=== PATIENT | male | born 1970 | race Caucasian/White ===

== ENCOUNTER → 2018-06-17 | Day surgery (SDC) | payer OTHER ==
[2018-06-14 11:47] LABS: BASOPHILS # (AUTO) 0.1 (0.0-0.1); BASOPHILS % 0.5 % (0.0-1.0); EOSINOPHILS # (AUTO) 0.3 (0.0-0.4); EOSINOPHILS % 3.4 % (0.0-6.0); HEMATOCRIT 44.7 % (38.2-49.6); HEMOGLOBIN 14.9 g/dL (14.0-18.0); LYMPHOCYTES # (AUTO) 2.9 (1.0-3.2); LYMPHOCYTES % 30.3 % (18.0-39.1); MEAN CORPUSCULAR HEMOGLOBIN 31.1 pg (28-32); MEAN CORPUSCULAR HGB CONC 33.3 g/dL (31-35); MEAN CORPUSCULAR VOLUME 93.3 fL (81-99); MONOCYTES # (AUTO) 0.9 (0.2-0.8); MONOCYTES % 9.4 % (4.4-11.3); NEUTROPHILS # (AUTO) 5.3 (2.1-6.9); PLATELET COUNT 290 x10e3/uL (140-360); RED BLOOD COUNT 4.79 x10e6/uL (4.3-5.7)
[2018-06-14 12:04] LABS: ANION GAP 14.2 mmol/L (8-16); BLOOD UREA NITROGEN 17 mg/dL (7-26); BUN/CREATININE RATIO 15 (6-25); CALCIUM 8.9 mg/dL (8.4-10.2); CARBON DIOXIDE 24 mmol/L (22-29); CHLORIDE 102 mmol/L (98-107); CREATININE, SERUM 1.17 mg/dL (0.72-1.25); EST GLOMERULAR FILTRATION RATE > 60 ML/MIN (60-); GLUCOSE 84 mg/dL (74-118); POTASSIUM 4.2 mmol/L (3.5-5.1); SODIUM 136 mmol/L (136-145)
--- NOTE | 2018-06-14 12:20 | Diagnostic Imaging Report ---
EXAM: CHEST 2 VIEWS, PA and lateral DATE: 06/14/2018 Time stamp on exam: 11:47 AM INDICATION: Preoperative COMPARISON: None FINDINGS: LINES/TUBES: None LUNGS: No consolidations or edema. PLEURA: No effusions or pneumothorax. HEART AND MEDIASTINUM: Normal size and contour. BONES AND SOFT TISSUES: Plate overlies the lower cervical spine. Old mid shaft fracture of the right clavicle. IMPRESSION: No acute thoracic abnormality. Signed by: Dr. Win Krishnan DO on 06/14/2018 12:17 PM
[~2018-06-17] MED LIST: ACETAMINOPHEN 1000 MG/100 ML IV ONE; ACYCLOVIR200 MG PO; BUPIVACAINE 0.25% 30ML SDV INJ ONE; CEFAZOLIN SOD 2 GM/D5W 50ML 50 ML IV ONE; CIPRO500 MG PO; CLONAZEPAM1 MG PO; DEXAMETHASONE SOD PHOS INJ 4 MG/ML VIAL ONE; FENTANYL CITRATE/PF 100MCG/2 ML INJ ONE; FLAGYL250 MG; FLUOXETINE HCL20 M1; HYDROCODON-ACE1 EA12 PO; KETOROLAC TROMETHAMINE 30 MG/ML VIAL ONE; KLONOPIN1 MG; LIDOCAINE HCL 2% JELLY 5 ML TUBE ONE; LIDOCAINE HCL 2% LOCAL INJ 5 ML SDV VIAL INJ ONE; METHYLPREDNISOLO4 M1 PO; MIDAZOLAM HCL 2 MG/2 ML VIAL ONE; NEOSTIGMINE 1 MG/ML 10ML VIAL ONE; OMEPRAZOLE40 MG PO; ONDANSETRON HCL INJ 2MG/ML 2ML 2 MG/ML VIAL ONE; PANTOPRAZOLE SO40 MG PO; PROMETHAZINE HC25 M1 PO; PROPOFOL IV EMULSION 10 MG/ML 20 ML VIAL ONE; SEVOFLURANE INHAL SOLN 250 ML PEN BTL ONE; TRAZODONE HCL50 MG PO; TYLENOL # 31 EA
--- OUTSIDE RECORDS SUMMARY | 2018-06-17 06:39 | XMS REPORT | Clinical Summary ---
Author Author [facility] Organization [facility] Address Unknown Phone Unavailable Care Team Providers Care Business Process Representative Name Role Phone PCP Unavailable Allergies Not on File Medications Not on file Active Problems Not on file Social History Date Tobacco Use Types Packs/Day Years Used Never Assessed Sex Assigned at Date Recorded Not on file Industry Job Start Date Occupation Not on file Not on file Not on file Travel End Travel History Travel Start No recent travel history available. Last Filed Vital Signs Not on file Plan of Treatment Health Maintenance Due Date Last Done Comments INFLUENZA VACCINE 12/08/2017 Results Not on fileafter 06/16/2017 Insurance Payer Benefit Subscriber ID Type Phone Address Plan / Group [facility] MEDICA - xxxxxxxxx [facility] Advance Directives Patient has advance care planning documents on file. For more information, amparo jackson contact: Frandy Baig [address] [place] [phone]
--- OUTSIDE RECORDS SUMMARY | 2018-06-17 06:43 | XMS REPORT | Continuity of Care Document ---
Author Author [facility] Interface Address Unknown Phone Unavailable Problems Problem Status Onset Date Classification Date Reported Comments Source Food in esophagus causing other injury, initial encounter 06/12/2017 09/14/2017 [facility] FOOD IMPACTION OF ESOPHAGUS Active 06/07/2017 [facility] FOOD STUCK IN THROAT Active 06/07/2017 [facility] Discharge Diagnosis: Folliculitis 07/19/2016 07/22/2016 [facility] SKIN IRRITATION Active 07/19/2016 [facility] Discharge Diagnosis: Insect bite of cheek 03/12/2016 03/15/2016 [facility] BUG BITE Active 03/11/2016 [facility] PAIN IN NECK Active 09/13/2015 [facility] PAIN IN LEFT ARM Active 09/03/2015 [facility] Discharge Diagnosis: Strain of thoracic region 08/22/2015 08/25/2015 [facility] BACK PAIN Active 08/22/2015 [facility] ABD/SIDE PAIN Active 05/25/2015 [facility] Discharge Diagnosis: Abdominal pain, acute 05/25/2015 05/28/2015 [facility] Discharge Diagnosis: Rash 05/02/2015 05/05/2015 [facility] Discharge Diagnosis: Chest pain at rest 05/02/2015 05/05/2015 [facility] RASH Active 05/01/2015 [facility] Discharge Diagnosis: Facial rash 03/19/2015 03/22/2015 [facility] INSECT BITES Active 03/19/2015 [facility] CHEST TIGHTNESS, SOB Active 02/25/2015 [facility] Discharge Diagnosis: Rash 01/19/2015 01/22/2015 [facility] 2 YR RASH Active 01/18/[address] [facility] Discharge Diagnosis: Contusion of finger 12/28/2014 12/31/2014 [facility] BROKEN FINGER Active 12/28/2014 [facility] Discharge Diagnosis: Allergic reaction caused by a drug 11/28/2014 12/01/2014 [facility] ALLERGIC REACTION Active 11/28/2014 [facility] Discharge Diagnosis: Otalgia of right ear 10/20/2014 10/23/2014 [facility] EAR PAIN Active 10/20/2014 [facility] VOMITING Active 06/20/2014 [facility] Discharge Diagnosis: Abdominal pain 02/23/2014 02/26/2014 [facility] Discharge Diagnosis: Vomiting in adult 02/23/2014 02/26/2014 [facility] BODY ACHES Active 02/23/2014 [facility] ABDOMINAL PAIN Active 02/22/2014 [facility] Discharge Diagnosis: Anxiety 01/10/2014 01/13/2014 [facility] PANIC ATTACK Active 01/10/2014 [facility] CHEST PAIN/PANIC ATTACK Active 01/10/2014 [facility] Discharge Diagnosis: Sunburn of first degree 09/27/2013 09/30/2013 [facility] Discharge Diagnosis: Abdominal pain, recurrent 09/27/2013 09/30/2013 [facility] FACIAL BURN Active 09/23/2013 [facility] Discharge Diagnosis: Abdominal Pain 08/01/2013 08/04/2013 [facility] RECTAL BLEEDING Active 08/01/2013 [facility] FLU SYMPTOMS Active 08/01/2013 [facility] Discharge Diagnosis: headache 07/22/2013 07/25/2013 [facility] Discharge Diagnosis: constipation 07/22/2013 07/25/2013 [facility] Discharge Diagnosis: vomiting 07/22/2013 07/25/2013 [facility] Discharge Diagnosis: abdominal pain - NOS 07/21/2013 07/24/2013 [facility] BODY ACHE/FEVER Active 07/20/2013 [facility] Discharge Diagnosis: Dehydration 07/20/2013 07/23/2013 [facility] ALLERGY Active 12/04/2012 [facility] LEG NUMBNESS Active 10/09/2012 [facility] ANXIETY Active 09/27/2012 [facility] ABD PAIN Active 02/14/2011 [facility] INTRACTABLE ABDOMINAL PAIN Active 02/14/2011 [facility] Abdominal pain Active Problem 12/06/2012 [facility] Chest pain Active Problem 12/06/2012 [facility] Hyperlipidemia Active Problem 12/06/2012 [facility] Hypertension Active Problem 12/06/2012 [facility] PUD - Peptic ulcer disease Active Problem 12/06/2012 [facility] Chronic back pain Resolved Problem 12/06/2012 [facility] Lesion<sup>1</sup> Resolved Problem 12/06/2012 1biopsy R nare. [facility] Anxiety Resolved Problem 12/06/2012 [facility] Abdominal pain Active Problem 09/14/2017 [facility], [place] Anxiety Resolved Problem 09/14/2017 [facility] [place] Chest pain Active Problem 09/14/2017 [facility] Chronic back pain Resolved Problem 09/14/2017 [facility] Hyperlipidemia Active Problem 09/14/2017 [facility] Hypertension Active Problem 09/14/2017 [facility] Lesion<sup>1</sup> Resolved Problem 03/15/2016 biopsy R nare. [facility] PUD - Peptic ulcer disease Active Problem 09/14/2017 [facility] Abdominal pain Active Problem 06/18/2015 [facility] Anxiety Resolved Problem 06/18/2015 [facility], [facility] [place] Chest pain Active Problem 06/18/2015 [facility], [facility] [place] Chronic back pain Resolved Problem 06/18/2015 [facility] Hyperlipidemia Active Problem 06/18/2015 [facility] Active Problem 06/18/2015 [facility] Lesion<sup>1</sup> Resolved Problem 06/18/2015 biopsy R nare. [facility] PUD - Peptic ulcer disease Active Problem 06/18/2015 [facility] [place] Duodenitis without bleeding 09/14/2017 [facility] Other gastritis without bleeding 09/14/2017 [facility] Hypo-osmolality and hyponatremia 09/14/2017 [facility] Hypovolemia 09/14/2017 [facility] Acute kidney failure, unspecified 09/14/2017 [facility] Hyperlipidemia, unspecified 09/14/2017 [facility] Essential hypertension 09/14/2017 [facility] Gastro-esophageal reflux disease without esophagitis 09/14/2017 [facility] Anxiety disorder, unspecified 09/14/2017 [facility] ABDMNAL PAIN UNSPCF SITE Active [facility] FOOD IN ESOPHAGUS CAUSING OTHER INJURY, Active [facility] Medications Medication Details Route Status Patient Instructions Ordering Provider Order Date Source Protonix 40 mg, 1 tab, Route: PO, Drug form: ECTAB, BID, Dosing Weight 124.045, kg, Start date: 06/08/17 17:00:00 POTATO SORTER, Duration: 30 day, Stop date: 07/08/17 9:00:00 CSTNotes: Tablet should not be chewed or crushed. (Same as: Protonix) Inactive 06/08/2017 [facility] Morphine 6 mg, 3 mL, Route: PO, Drug form: SOLN, Q4H, Dosing Weight 124.045, kg, PRN Pain Score 7-10, Start date: 06/08/17 14:45:00 POTATO SORTER, Duration: 30 day, Stop date: 07/08/17 14:44:00 CSTNotes: (Same as:MORPhine Sulfate) Inactive 06/08/2017 [facility] Pepcid 20 mg, 2 mL, Route: IV, Drug form: INJ, Q12H, Dosing Weight 122.727, kg, Start date: 06/08/17 9:00:00 POTATO SORTER, Duration: 30 day, Stop date: 07/07/17 21:00:00 POTATO SORTER, Notes: (Same as: Pepcid) Can be dilute in 5-10cc NS IVP: Slow IV push over at least 2 minutes. Inactive 06/08/2017 [facility] heparin 5,000 unit, 1 mL, Route: SUB-Q, Drug form: INJ, Q12H, Dosing Weight 122.727, kg, Start date: 06/08/17 9:00:00 POTATO SORTER, Stop date: 07/07/17 21:00:00 CSTNotes: porcine heparin Inactive 06/08/2017 [facility] Glucagon 1 mg, Route: INJ, ONCE, Dosing Weight 124.045, kg, Start date: 06/08/17 8:58:00 POTATO SORTER, Stop date: 06/08/17 8:58:00 POTATO SORTER Inactive 06/08/2017 [facility] normal saline 0.9% IV 1,000 mL 1,000 mL, Rate: 100 ml/hr, Infuse over: 10 hr, Route: IV, Dosing Weight 124.045 kg, Total Volume: 1,000, Start date: 06/08/17 7:08:00 POTATO SORTER, Duration: 30 day, Stop date: 07/08/17 7:07:00 POTATO SORTER, 2.59, m2 Inactive 06/08/2017 [facility] Klonopin PO, BID, 0 Refill(s) Active 06/08/2017 [facility] Trazodone PO, Bedtime, 0 Refill(s) Active 06/08/2017 [facility] normal saline 0.9% IV 1,000 mL 1,000 mL, Rate: 100 ml/hr, Infuse over: 10 hr, Route: IV, Dosing Weight 122.727 kg, Total Volume: 1,000, Priority: STAT, Start date: 06/08/17 0:14:00 POTATO SORTER, Duration: 1 doses or times, Stop date: 06/08/17 10:13:00 POTATO SORTER, 2.58, m2 Inactive 06/08/2017 [facility] Morphine 2 mg, 0.5 mL, Route: IVP, Drug form: SOLN, Q4H, Dosing Weight 122.727, kg, PRN Pain Score 7-10, Start date: 06/08/17 0:13:00 POTATO SORTER, Duration: 30 day, Stop date: 07/08/17 0:12:00 CSTNotes: (Same as:MORPhine Sulfate) Inactive 06/08/2017 [facility] Ondansetron 4 mg, 2 mL, Route: IVP, Drug form: INJ, Q6H, Dosing Weight 122.727, kg, PRN Nausea & Vomiting, Start date: 06/08/17 0:13:00 POTATO SORTER, Duration: 30 day, Stop date: 07/08/17 0:12:00 CSTNotes: (Same as: Zofran) MEDICATION WASTE Product Size: 4 mg Product Wasted: ___ mg Inactive 06/08/2017 [facility] Glucagon 1 mg, Route: IM, Drug form: PDR/INJ, ONCE, Dosing Weight 122.727, kg, Priority: STAT, Start date: 06/07/17 22:05:00 POTATO SORTER, Stop date: 06/07/17 22:05:00 POTATO SORTER Inactive 06/08/2017 [facility] clindamycin 300 mg oral capsule 300 mg=1 cap, PO, Q6H, X 7 day, # 28 cap, 0 Refill(s) Active 07/19/2016 [facility] Saline Flush 0.9% 10 mL, Route: IVP, Drug Form: INJ, Dosing Weight 115, kg, PRN, PRN Line Flush, Start date: 07/19/16 8:24:00 CDT, Duration: 30 day, Stop date: 08/18/16 8:23:00 CDTNotes: (Same as: BD Posiflush) Inactive 07/19/2016 [facility] Sulfamethoxazole 800 MG / Trimethoprim 160 MG Oral Tablet [Bactrim] 1 tab, PO, BID, X 10 day, # 20 tab, 0 Refill(s) Active 03/12/2016 [facility] Morphine 4 mg, Route: IM, Drug form: INJ, ONCE, Dosing Weight 120.455, kg, Priority: STAT, Start date: 09/13/15 14:17:00 CDT, Stop date: 09/13/15 14:17:00 CDT Inactive 09/13/2015 [facility] Valium 5 mg, Route: PO, ONCE, Dosing Weight 120.455, kg, Priority: STAT, Start date: 09/13/15 14:17:00 CDT, Stop date: 09/13/15 14:17:00 CDT Inactive 09/13/2015 [facility] Cyclobenzaprine hydrochloride 10 MG Oral Tablet [Flexeril] 10 mg, PO, TID, PRN Muscle Spasm, X 10 day, # 30 tab, 0 Refill(s) Active 08/22/2015 [facility] Etodolac 300 MG Oral Capsule [Lodine] 300 mg=1 cap, PO, BID, PRN Pain, # 20 cap, 0 Refill(s) Active 08/22/2015 [facility] Ketorolac 60 mg, Route: IM, Drug form: INJ, ONCE, Dosing Weight 118.182, kg, Priority: STAT, Start date: 08/22/15 17:43:00 CDT, Stop date: 08/22/15 17:43:00 CDT Inactive 08/22/2015 [facility] Ondansetron 4 MG Disintegrating Tablet [Zofran] 4 mg=1 tab, PO, BID, PRN Nausea and Vomiting, Dissolve tab under tongue, X 5 day, # 20 tab, 0 Refill(s) Active 05/25/2015 [facility] tramadol hydrochloride 50 MG Oral Tablet 50 mg=1 tab, PO, Q6H, PRN Pain, X 10 day, # 20 tab, 0 Refill(s) Active 05/25/2015 [facility] pantoprazole 40 MG Enteric Coated Tablet [Protonix] 40 mg=1 tab, PO, Daily, # 30 tab, 0 Refill(s) Active 05/25/2015 [facility] Morphine 4 mg, Route: IVP, Drug form: INJ, ONCE, Dosing Weight 120.909, kg, Priority: STAT, Start date: 05/25/15 15:33:00, Stop date: 05/25/15 15:33:00 Inactive 05/25/2015 [facility] Zofran 4 mg, Route: IVP, Drug form: INJ, ONCE, Dosing Weight 120.909, kg, Priority: STAT, Start date: 05/25/15 15:33:00, Stop date: 05/25/15 15:33:00 Inactive 05/25/2015 [facility] Saline Flush 0.9% 10 mL, Route: IVP, Drug Form: INJ, Dosing Weight 120.909, kg, PRN, PRN Line Flush, Start date: 05/25/15 15:30:00, Duration: 30 day, Stop date: 06/24/15 15:29:00 Inactive 05/25/2015 [facility] Morphine 4 mg, 2 mL, Route: IVP, Drug form: INJ, ONCE, Dosing Weight 118.182, kg, Start date: 05/01/15 22:42:00, Stop date: 05/01/15 22:42:00Notes: (Same as:MORPhine Sulfate) Inactive 05/02/2015 [facility] Zofran 4 mg, 2 mL, Route: IVP, Drug form: INJ, ONCE, Dosing Weight 118.182, kg, Start date: 05/01/15 22:42:00, Stop date: 05/01/15 22:42:00Notes: (Same as: Zofran) MEDICATION WASTE Product Size: 4 mg Product Wasted: ___ mg Inactive 05/02/2015 [facility] Morphine 4 mg, Route: IVP, Drug form: INJ, ONCE, Dosing Weight 118.182, kg, Priority: STAT, Start date: 05/01/15 22:41:00, Stop date: 05/01/15 22:41:00 Inactive 05/02/2015 [facility] Zofran 4 mg, Route: IVP, Drug form: INJ, ONCE, Dosing Weight 118.182, kg, Priority: STAT, Start date: 05/01/15 22:41:00, Stop date: 05/01/15 22:41:00 Inactive 05/02/2015 [facility] Saline Flush 0.9% 10 mL, Route: IVP, Drug Form: INJ, Dosing Weight 118.182, kg, PRN, PRN Line Flush, Start date: 05/01/15 21:36:00, Duration: 30 day, Stop date: 05/31/15 21:35:00Notes: (Same as: BD Posiflush) No Longer Active 05/02/2015 [facility] doxycycline hyclate 100 MG Oral Capsule 100 mg=1 cap, PO, Q12H, X 21 day, # 42 cap, 0 Refill(s) Active 03/20/2015 [facility] Triamcinolone Acetonide 1 MG/ML Topical Cream 1 appl, TOP, TID, PRN For rash, X 7 day, # 15 gm, 0 Refill(s) Active 01/19/2015 [facility] Naproxen 500 MG Oral Tablet [Naprosyn] 500 mg=1 tab, PO, BID, # 30 tab, 0 Refill(s) Active 12/29/2014 [facility] Acetaminophen 325 MG / Hydrocodone Bitartrate 7.5 MG Oral Tablet [[place] 7.5/325] 1 tab, Route: PO, Drug Form: TAB, Dosing Weight 90.909, kg, ONCE, STAT, Start date: 12/28/14 20:59:00, Stop date: 12/28/14 20:59:00 Inactive 12/29/2014 [facility] predniSONE 20 mg oral tablet 60 mg=3 tab, PO, Daily, X 3 day, # 9 tab, 0 Refill(s) Active 11/28/2014 [facility] Famotidine 20 MG Oral Tablet [Pepcid] 20 mg=1 tab, PO, BID, # 8 tab, 0 Refill(s) Active 11/28/2014 [facility] 0.3 ML Epinephrine 1 MG/ML Prefilled Syringe [Epipen] 0.3 mg, IM, ONCE, # 1 kit, 0 Refill(s) Active 11/28/2014 [facility] Hydroxyzine Hydrochloride 25 MG Oral Tablet 25 mg=1 tab, PO, QID, PRN Itching, # 40 tab, 0 Refill(s) Active 11/28/2014 [facility] Pepcid 20 mg, Route: IVP, ONCE, Dosing Weight 118.182, kg, Start date: 11/28/14 15:01:00, Stop date: 11/28/14 15:01:00 Inactive 11/28/2014 [facility] Prednisone 60 mg, Route: PO, ONCE, Dosing Weight 118.182, kg, Priority: STAT, Start date: 11/28/14 15:01:00, Stop date: 11/28/14 15:01:00 Inactive 11/28/2014 [facility] Benadryl 50 mg, Route: IVP, ONCE, Dosing Weight 118.182, kg, Start date: 11/28/14 15:00:00, Stop date: 11/28/14 15:00:00 Inactive 11/28/2014 [facility] Sodium Chloride 0.154 MEQ/ML Injectable Solution 1,000 mL, 1,000 ml/hr, Infuse Over: 1 hr, Route: IV, ONCE, Priority: STAT, Dosing Weight 118.182 kg, Start date: 11/28/14 14:59:00, Duration: 1 doses or times, Stop date: 11/28/14 14:59:00 Inactive 11/28/2014 [facility] Auralgan Otic solution (A/B Otic solution) 2 drp, Each Affected Ear, Q2H, PRN Pain, X 5 day, # 15 ml, 0 Refill(s) Active 10/20/2014 [facility] Dicyclomine Hydrochloride 20 MG Oral Tablet [Bentyl] 20 mg=1 tab, PO, QID, # 40 tab, 0 Refill(s) Active 02/23/2014 [facility] Bentyl 20 mg, 1 tab, Route: PO, Drug form: TAB, ONCE, Dosing Weight 122.727, kg, Start date: 02/23/14 7:28:00, Stop date: 02/23/14 7:28:00Notes: (Same as: Bentyl) Inactive 02/23/2014 [facility] Protonix 40 mg, 1 tab, Route: PO, Drug form: ECTAB, ONCE, Dosing Weight 122.727, kg, Priority: STAT, Start date: 02/23/14 7:28:00, Stop date: 02/23/14 7:28:00Notes: Tablet should not be chewed or crushed. (Same as: Protonix) Inactive 02/23/2014 [facility] normal saline 0.9% IV 1,000 mL 1,000 mL, Rate: 1,000 ml/hr, Infuse over: 1 hr, Route: IV, Dosing Weight 122.727 kg, Total Volume: 1,000, Priority: STAT, Start date: 02/23/14 7:11:00, Duration: 1 doses or times, Stop date: 02/23/14 12:10:00 Inactive 02/23/2014 [facility] Zofran ODT 4 mg, 1 tab, Route: PO, Drug form: TABDIS, ONCE, Dosing Weight 122.727, kg, Priority: STAT, Start date: 02/23/14 6:30:00, Stop date: 02/23/14 6:30:00Notes: (Same as: Zofran ODT) Inactive 02/23/2014 [facility] GI cocktail 30 mL, Route: PO, Drug Form: SUSP, Dosing Weight 122.727, kg, ONCE, STAT, Start date: 02/23/14 6:30:00, Stop date: 02/23/14 6:30:00Notes: G.I. Cocktail=antacid with simethicone 22.5 mL - lidocaine viscous 7.5 mL Inactive 02/23/2014 [facility] Ondansetron 4 MG Disintegrating Tablet [Zofran] 4 mg=1 tab, PO, Q6H, nausea, # 10 tab, 0 Refill(s) Active 02/22/2014 [facility] pantoprazole 40 MG Enteric Coated Tablet [Protonix] 40 mg=1 tab, PO, Daily, # 14 tab, 0 Refill(s) Active 02/22/2014 [facility] Ondansetron 4 mg, Route: IVP, ONCE, Dosing Weight 122.727, kg, Priority: STAT, Start date: 02/22/14 7:43:00, Stop date: 02/22/14 7:43:00 Inactive 02/22/2014 [facility] GI cocktail 30 mL, Route: PO, Dosing Weight 122.727, kg, ONCE, STAT, Start date: 02/22/14 7:43:00, Stop date: 02/22/14 7:43:00 Inactive 02/22/2014 [facility] Saline Flush 0.9% 10 mL, Route: IVP, Drug Form: INJ, Dosing Weight 122.727, kg, PRN, PRN Line Flush, Start date: 02/22/14 7:43:00, Duration: 30 day, Stop date: 03/24/14 6:42:00Notes: (Same as: BD Posiflush) Inactive 02/22/2014 [facility] Sodium Chloride 0.154 MEQ/ML Injectable Solution 1,000 mL, Infuse Over: 1 hr, Route: IV, ONCE, Priority: STAT, Dosing Weight 122.727 kg, Start date: 02/22/14 7:43:00, Duration: 1 doses or times, Stop date: 02/22/14 7:43:00 Inactive 02/22/2014 [facility] Lomotil 0 Refill(s) Active 02/22/2014 [facility] Phenergan 0 Refill(s) Active 02/22/2014 [facility] Trazodone 0 Refill(s) Active 02/22/2014 [facility] Silver Sulfadiazine 10 MG/ML Topical Cream [Silvadene] 1 appl, Route: TOP, ONCE, Priority: Stat, Start date: 09/27/13 13:48:00, Stop date: 09/27/13 13:48:00 Inactive 09/27/2013 [facility] Sodium Chloride 0.154 MEQ/ML Injectable Solution 1,000 mL, 1,000 ml/hr, Infuse Over: 1 hr, Route: IV, ONCE, Priority: STAT, Dosing Weight 122.727 kg, Start date: 09/27/13 13:47:00, Duration: 1 doses or times, Stop date: 09/27/13 13:47:00 Inactive 09/27/2013 [facility] Temazepam 30 MG Oral Capsule [Restoril] 30 mg=1 cap, PO, Bedtime, Sleep, # 10 cap, 0 Refill(s) Active 08/01/2013 [facility] Promethazine 25 mg, Route: IVPB, ONCE, Dosing Weight 122.727, kg, Priority: STAT, Start date: 08/01/13 8:58:00, Stop date: 08/01/13 8:58:00 Inactive 08/01/2013 [facility] pantoprazole 40 mg, Route: IVP, ONCE, Dosing Weight 122.727, kg, For IV push reconstitute with 10 ml 0.9% sodium chloride and push over at least 3 minutes, Priority: STAT, Start date: 08/01/13 7:29:00, Stop date: 08/01/13 7:29:00 Inactive 08/01/2013 [facility] Ondansetron 4 mg, Route: IVP, ONCE, Dosing Weight 122.727, kg, Priority: STAT, Start date: 08/01/13 7:29:00, Stop date: 08/01/13 7:29:00 Inactive 08/01/2013 [facility] Sodium Chloride 0.9% (Bolus) IV 1000 mL 1,000 mL, Rate: 1,000 ml/hr, Infuse over: 1 hr, Route: IV, Dosing Weight 122.727 kg, Total Volume: 1,000, Priority: STAT, Start date: 08/01/13 7:29:00, Duration: 1 doses or times, Stop date: 08/01/13 8:28:00 Inactive 08/01/2013 [facility] Saline Flush 0.9% 5 mL, Route: IVP, Drug Form: INJ, Dosing Weight 122.727, kg, PRN, PRN Line Flush, Start date: 08/01/13 7:29:00, Duration: 24 hr, Stop date: 08/02/13 7:28:00Same as: BD Posiflush Sterile Inactive 08/01/2013 [facility] POLYETHYLENE GLYCOL 3350 60 MG/ML / Potassium Chloride 0.01 MEQ/ML / Sodium Bicarbonate 0.02 MEQ/ML / Sodium Chloride 0.025 MEQ/ML / sodium sulfate 0.04 MEQ/ML Oral Solution [Golytely] 240 ml, PO, Q10Min, # 1 ea, 0 Refill(s) Active 07/23/2013 [facility] ondansetron 4 mg oral tablet 4 mg=1 tab, PO, BID, # 10 tab, 0 Refill(s) Active 07/23/2013 [facility] Ativan 1 mg, Route: IVP, Drug form: INJ, ONCE, Dosing Weight 122.727, kg, Priority: STAT, Start date: 07/22/13 18:38:00, Stop date: 07/22/13 18:38:00 Inactive 07/22/2013 [facility] NS (Bolus) IV 1,000 mL 1,000 mL, Rate: 1,000 ml/hr, Infuse over: 1 hr, Route: IV, Dosing Weight 122.727 kg, Total Volume: 1,000, Priority: STAT, Start date: 07/22/13 17:33:00, Duration: 1 doses or times, Stop date: 07/22/13 18:32:00, Bolus DoseBolus Dose Inactive 07/22/2013 [facility] Ondansetron 4 mg, 2 mL, Route: IVP, Drug form: INJ, ONCE, Dosing Weight 122.727, kg, Priority: STAT, Start date: 07/22/13 17:25:00, Stop date: 07/22/13 17:25:00(Same as: Zofran) Inactive 07/22/2013 [facility] Morphine 4 mg, 2 mL, Route: IVP, Drug form: INJ, ONCE, Dosing Weight 122.727, kg, Priority: STAT, Start date: 07/22/13 17:24:00, Stop date: 07/22/13 17:24:00(Same as:MORPhine Sulfate) Inactive 07/22/2013 [facility] Saline Flush 0.9% 5 mL, Route: IVP, Drug Form: INJ, Dosing Weight 122.727, kg, PRN, PRN Line Flush, Start date: 07/22/13 17:20:00, Duration: 24 hr, Stop date: 07/23/13 17:19:00Same as: BD Posiflush Sterile No Longer Active 07/22/2013 [facility] Ativan 0.5 mg, 0.25 mL, Route: IV, Drug form: INJ, ONCE, Dosing Weight 122.727, kg, Start date: 07/21/13 6:33:00, Stop date: 07/21/13 6:33:00(Same as: Ativan) Inactive 07/21/2013 [facility] Ondansetron 8 mg, 4 mL, Route: IVP, Drug form: INJ, ONCE, Dosing Weight 122.727, kg, Priority: STAT, Start date: 07/21/13 6:24:00, Stop date: 07/21/13 6:24:00(Same as: Zofran) Inactive 07/21/2013 [facility] Famotidine 20 mg, 2 mL, Route: IVP, Drug form: INJ, ONCE, Dosing Weight 122.727, kg, Priority: STAT, Start date: 07/21/13 6:24:00, Stop date: 07/21/13 6:24:00(Same as: Pepcid) Can be dilute in 5-10cc NS IVP: Slow IV push over at least 2 minutes. Inactive 07/21/2013 [facility] Sodium Chloride 0.9% (Bolus) IV 1,000 mL 1,000 mL, Rate: 1,000 ml/hr, Infuse over: 1 hr, Route: IV, Dosing Weight 122.727 kg, Total Volume: 1,000, Priority: STAT, Start date: 07/21/13 6:24:00, Duration: 1 doses or times, Stop date: 07/21/13 7:23:00 Inactive 07/21/2013 [facility] Saline Flush 0.9% 5 mL, Route: IVP, Drug Form: INJ, Dosing Weight 122.727, kg, PRN, PRN Line Flush, Start date: 07/21/13 6:24:00, Duration: 24 hr, Stop date: 07/22/13 6:23:00Same as: BD Posiflush Sterile Inactive 07/21/2013 [facility] Morphine 4 mg, 2 mL, Route: IVP, Drug form: INJ, ONCE, Dosing Weight 122.727, kg, Priority: STAT, Start date: 07/21/13 6:24:00, Stop date: 07/21/13 6:24:00(Same as:MORPhine Sulfate) Inactive 07/21/2013 [facility] Promethazine Hydrochloride 25 MG Oral Tablet [Phenergan] 25 mg=1 tab, PO, Q6H, Nausea, # 15 tab, 0 Refill(s) Active 07/20/2013 [facility] normal saline 0.9% IV 1,000 mL 1,000 mL, Rate: Bolus, Route: IV, Dosing Weight 126.932 kg, Total Volume: 1,000, Start date: 07/20/13 8:36:00, Duration: 1 hr, Stop date: 07/20/13 9:35:00 Inactive 07/20/2013 [facility] Phenergan 25 mg, 1 mL, Route: IM, Drug form: INJ, ONCE, Dosing Weight 126.932, kg, Priority: STAT, Start date: 07/20/13 8:26:00, Stop date: 07/20/13 8:26:00Do not give IV push. (Same as: Phenergan) Inactive 07/20/2013 [facility] Zofran 8 mg, Route: IV, ONCE, Dosing Weight 126.932, kg, Start date: 07/20/13 7:27:00, Stop date: 07/20/13 7:27:00 Inactive 07/20/2013 [facility] Ketorolac Tromethamine 30 MG/ML Injectable Solution 30 mg, Route: IV, ONCE, Dosing Weight 126.932, kg, Start date: 07/20/13 7:26:00, Stop date: 07/20/13 7:26:00 Inactive 07/20/2013 [facility] normal saline 0.9% IV 1,000 mL 1,000 mL, Rate: 100 ml/hr, Infuse over: 10 hr, Route: IV, Dosing Weight 126.932 kg, Total Volume: 1,000, Start date: 07/20/13 7:25:00, Duration: 30 day, Stop date: 08/19/13 7:24:00 Inactive 07/20/2013 [facility] Ativan 1 mg, Route: IV, ONCE, Dosing Weight 122.727, kg, Start date: 12/04/12 10:23:00, Stop date: 12/04/12 10:23:00 IV No Longer Active [facility] 12/04/2012 [facility] Saline Flush 0.9% 5 mL, Route: IVP, Drug Form: INJ, Dosing Weight 122.727, kg, Q8H, PRN Line Flush, Start date: 12/04/12 10:22:00, Duration: 30 day, Stop date: 01/03/13 10:21:00, Administer at least once every 8 hoursAdminister at least once every 8 hours IVP No Longer Active [facility] 12/04/2012 [facility] Benadryl 25 mg oral capsule 25 mg, 1 cap, PO, Q6H, PRN, 30 cap, Allergic reaction, Substitution Allowed PO Active Jain 11/23/2012 [facility] Medrol Dosepak 4 mg Tablet As directed on package instructions, PO, Daily, Take with or without food, 1 Pack, Substitution AllowedTake with or without food PO Active Jain 11/23/2012 [facility] hydrocortisone topical 1% ointment 1 appl, TOP, TID, 30 gm, Substitution Allowed, OINT TOP Active Jain 11/23/2012 [facility] Benadryl 25 mg oral capsule 25 mg, 1 cap, PO, Q6H, PRN, 30 cap, Allergic reaction, Substitution Allowed PO Active Jain 11/23/2012 [facility] Benadryl 25 mg, 1 tab, Route: PO, Drug form: TAB, ONCE, Dosing Weight 122.727, kg, Priority: STAT, Start date: 11/23/12 8:00:00, Stop date: 11/23/12 8:00:00 PO Active Jain 11/23/2012 [facility] predniSONE 60 mg, Route: PO, Drug form: TAB, ONCE, Dosing Weight 122.727, kg, Priority: STAT, Start date: 11/23/12 7:59:00, Stop date: 11/23/12 7:59:00 PO No Longer Active Jain 11/23/2012 [facility] Medrol Dosepak 4 mg Tablet See Instructions, PO Daily, 1 box, Substitution AllowedPO Daily Active [facility] 10/09/2012 [facility] [place] 7.5/325 oral tablet 1-2 tab, PO, Q4-6H, PRN, 20 tab, as needed for pain, Substitution Allowed, Maintenance PO Active [facility] 10/09/2012 [facility] methylPREDNISolone SODium SUCCinate 125 mg, 2 mL, Route: IVP, Drug form: INJ, ONCE, Dosing Weight 122.727, kg, Priority: STAT, Start date: 10/09/12 15:00:00, Stop date: 10/09/12 15:00:00 IVP No Longer Active [facility] 10/09/2012 [facility] hydromorphone 1 mg, 1 mL, Route: IVP, Drug form: SOLN, ONCE, Dosing Weight 122.727, kg, Priority: STAT, Start date: 10/09/12 15:00:00, Stop date: 10/09/12 15:00:00 IVP No Longer Active [facility] 10/09/2012 [facility] predniSONE 20 mg oral tablet 20 mg, 1 tab, PO, Daily, 10 tab, Substitution Allowed, TAB PO Active [facility] 04/17/2012 [facility] Pepcid AC 10 mg, Route: PO, ONCE, Dosing Weight 122.727, kg, Start date: 04/17/12 5:25:00, Stop date: 04/17/12 5:25:00 PO No Longer Active [facility] 04/17/2012 [facility] Benadryl 25 mg, Route: PO, Drug form: CAP, ONCE, Dosing Weight 122.727, kg, Priority: STAT, Start date: 04/17/12 5:24:00, Stop date: 04/17/12 5:24:00 PO No Longer Active [facility] 04/17/2012 [facility] SoluMedrol 125 mg, Route: IVP, ONCE, Dosing Weight 122.727, kg, Priority: STAT, Start date: 04/17/12 5:23:00, Stop date: 04/17/12 5:23:00 IVP No Longer Active [facility] 04/17/2012 [facility] Lactated Ringers IV 1,000 mL 1,000 mL, Rate: 40 ml/hr, Infuse over: 25 hr, Route: IV, Total Volume: 1,000, Start date: 02/17/11 15:27:00, Duration: 30 day, Stop date: 03/19/11 15:26:00 IV No Longer Active [facility] 02/17/2011 [facility] chlordiazepoxide-clidinium 5 mg-2.5 mg oral capsule 1 cap, Route: PO, Drug Form: CAP, Q6H, Start date: 02/17/11 0:00:00, Duration: 30 day, Stop date: 03/18/11 18:00:00 PO No Longer Active [facility] 02/17/2011 [facility] Dulcolax Laxative 10 mg, 2 tab, Route: PO, Drug form: ECTAB, ONCE, Start date: 02/16/11 23:00:00, Stop date: 02/16/11 23:00:00 PO No Longer Active [facility] 02/17/2011 [facility] GoLYTELY 4,000 mL, Route: PO, Drug Form: PDR/REC, ONCE, Start date: 02/16/11 19:30:00, Stop date: 02/16/11 19:30:00 PO No Longer Active [facility] 02/17/2011 [facility] Dulcolax Laxative 10 mg, 2 tab, Route: PO, Drug form: ECTAB, ONCE, Start date: 02/16/11 19:00:00, Stop date: 02/16/11 19:00:00 PO No Longer Active [facility] 02/17/2011 [facility] nitroglycerin 0.4 mg sublingual tablet 0.4 mg, 1 tab, Route: SL, Drug form: TAB, Q5Min, PRN Chest Pain, Start date: 02/16/11 15:55:00, Duration: 30 day, Stop date: 03/18/11 14:54:00 SL No Longer Active [facility] 02/16/2011 [facility] atropine 0.5 mg, 5 mL, Route: IVP, Drug form: INJ, PRN, PRN Bradycardia, Start date: 02/16/11 15:55:00, Duration: 30 day, Stop date: 03/18/11 14:54:00 IVP No Longer Active [facility] 02/16/2011 [facility] lisinopril 10 mg, 1 tab, Route: PO, Drug form: TAB, Daily, Start date: 02/16/11 9:00:00, Duration: 30 day, Stop date: 03/17/11 9:00:00 PO No Longer Active [facility] 02/16/2011 [facility] Benadryl 25 mg, 1 tab, Route: PO, Drug form: TAB, Bedtime, PRN See Nurse's Notes, Start date: 02/15/11 22:03:00, Duration: 30 day, Stop date: 03/17/11 22:02:00 PO No Longer Active [facility] 02/16/2011 [facility] Dextrose 5% with 0.9% NaCl IV 1,000 mL 1,000 mL 1,000 mL, Rate: 125 ml/hr, Infuse over: 8 hr, Route: IV, Total Volume: 1,000, Start date: 02/14/11 23:35:00, Stop date: 03/16/11 23:34:00 IV No Longer Active [facility] 02/15/2011 [facility] ondansetron 4 mg, 2 mL, Route: IVP, Drug form: INJ, Q6H, PRN Nausea & Vomiting, Start date: 02/14/11 23:35:00, Duration: 30 day, Stop date: 03/16/11 23:34:00 IVP No Longer Active [facility] 02/15/2011 [facility] Saline Flush 0.9% 5 ml, Route: IVP, Drug Form: INJ, PRN, PRN Line Flush, Start date: 02/14/11 23:35:00, Duration: 30 day, Stop date: 03/16/11 22:34:00 IVP No Longer Active [facility] 02/15/2011 [facility] pantoprazole 80 mg + Sodium Chloride 0.9% IV 100 mL 100 mL, Rate: 10 ml/hr, Infuse over: 10 hr, Route: IVPB, Total Volume: 100, Infuse at 8 mg / hr for 72 hours for GI bleeding, Start date: 02/14/11 23:35:00, Duration: 72 hr, Stop date: 02/17/11 23:34:00 IVPB No Longer Active [facility] 02/15/2011 [facility] Dilaudid 1 mg, 1 mL, Route: IV, Drug form: SOLN, Q4H, PRN Pain, Priority: STAT, Start date: 02/14/11 23:35:00, Duration: 30 day, Stop date: 03/16/11 23:34:00 IV No Longer Active [facility] 02/15/2011 [facility] ALPRAZOLam 0.25 mg oral tablet, disintegrating 1 tab, PO, Daily, Substitution Allowed, DIS Tablet PO On Hold 02/15/2011 [facility] Crestor 5 mg oral tablet 1 tab, PO, Daily, 30 tab, Substitution Allowed, TAB PO On Hold 02/15/2011 [facility] pantoprazole 40 mg oral enteric coated tablet 1 tab, PO, BID, 30 tab, Substitution Allowed, ECTAB PO On Hold 02/15/2011 [facility] lisinopril 10 mg oral tablet 1 tab, PO, Daily, 30 tab, Substitution Allowed, TAB PO On Hold [facility] 02/15/2011 [facility] Sodium Chloride 0.9% IV 1,000 mL 1,000 mL, Rate: 150 ml/hr, Infuse over: 6.7 hr, Route: IV, Total Volume: 1,000, Start date: 02/14/11 20:56:00, Duration: 30 day, Stop date: 03/16/11 20:55:00 IV No Longer Active [facility] 02/15/2011 [facility] Sodium Chloride 0.9% (Bolus) IV 500 mL 500 mL, Rate: 500 ml/hr, Infuse over: 1 hr, Route: IV, Total Volume: 500, Bolus Dose, Priority: STAT, Start date: 02/14/11 20:56:00, Duration: 1 doses or times, Stop date: 02/14/11 21:55:00 IV No Longer Active [facility] 02/15/2011 [facility] Zofran 4 mg, 2 mL, Route: IVP, Drug form: INJ, ONCE, Priority: STAT, Start date: 02/14/11 20:56:00, Stop date: 02/14/11 20:56:00 IVP No Longer Active [facility] 02/15/2011 [facility] Dilaudid 2 mg, 1 mL, Route: IV, Drug form: INJ, ONCE, Priority: STAT, Start date: 02/14/11 20:56:00, Stop date: 02/14/11 20:56:00 IV No Longer Active [facility] 02/15/2011 [facility] Saline Flush 0.9% 5 ml, Route: IVP, Drug Form: INJ, PRN, PRN Line Flush, Start date: 02/14/11 19:23:00, Duration: 24 hr, Stop date: 02/15/11 19:22:00 IVP No Longer Active [facility] 02/15/2011 [facility] Allergies, Adverse Reactions, Alerts Substance Category Reaction Severity Reaction type Status Date Reported Comments Source amoxicillin Assertion Drug allergy Active [facility] Immunizations Immunization Date Given Site Status Last Updated Comments Source Results Order Name Results Value Reference Range Date Interpretation Comments Source CHEM PANEL Magnesium Lvl 2.2 mg/dL 1.8 - 2.4 06/08/2017 [facility] CHEM PANEL eGFR 70 mL/min/1.73m2 06/08/2017 Result Comment: The eGFR is calculated using the CKD-EPI formula. In most young, healthy individuals the eGFR will be >90 mL/min/1.73m2. The eGFR declines with age. An eGFR of 60-89 may be normal in some populations, particularly the elderly, for whom the CKD-EPI formula has not been extensively validated. Use of the eGFR is not recommended in the following populations: Individuals with unstable creatinine concentrations, including patients and those with serious co-morbid conditions. Patients with extremes in muscle mass or diet. The data above are obtained from the National Kidney Disease Education Program (NKDEP) which additionally recommends that when the eGFR is used in patients with extremes of body mass index for purposes of drug dosing, the eGFR should be multiplied by the estimated BMI. [facility] [place] CHEM PANEL Alk Phos 79 unit/L 39 - 136 06/08/2017 [place] CHEM PANEL ALT 42 unit/L 0 - 65 06/08/2017 [place] CHEM PANEL Bili Total 0.8 mg/dL 0.2 - 1.3 06/08/2017 [place] CHEM PANEL AST 20 unit/L 0 - 37 06/08/2017 [place] CHEM PANEL Albumin Lvl 3.5 g/dL 3.5 - 5.0 06/08/2017 [place] CHEM PANEL Globulin 3.2 g/dL 2.7 - 4.2 06/08/2017 [place] CHEM PANEL A/G Ratio 1.1 0.7 - 1.6 06/08/2017 [place] CHEM PANEL Total Protein 6.7 g/dL 6.4 - 8.4 06/08/2017 [place] CHEM PANEL B/C Ratio 14 6 - 25 06/08/2017 [place] CHEM PANEL Chloride Lvl 103 meq/L 95 - 109 06/08/2017 [place] CHEM PANEL Sodium Lvl 138 meq/L 135 - 145 06/08/2017 [place] CHEM PANEL CO2 30 meq/L 24 - 32 06/08/2017 [place] CHEM PANEL Potassium Lvl 3.7 meq/L 3.5 - 5.1 06/08/2017 [place] CHEM PANEL AGAP 8.7 meq/L 10.0 - 20.0 06/08/2017 [place] CHEM PANEL Calcium Lvl 8.2 mg/dL 8.5 - 10.5 06/08/2017 [place] CHEM PANEL Creatinine Lvl 1.21 mg/dL 0.50 - 1.40 06/08/2017 [place] CHEM PANEL Glucose Lvl 93 mg/dL 70 - 99 06/08/2017 [place] CHEM PANEL BUN 17 mg/dL 7 - 22 06/08/2017 [facility] HEMATOLOGY MCHC 34.7 g/dL 32.0 - 36.0 06/08/2017 [facility] HEMATOLOGY MCH 31.7 pg 27.0 - 31.0 06/08/2017 [facility] HEMATOLOGY MCV 91.3 fL 80.0 - 94.0 06/08/2017 [facility] HEMATOLOGY Hct 41.8 % 42.0 - 54.0 06/08/2017 [facility] HEMATOLOGY Hgb 14.5 g/dL 14.0 - 18.0 06/08/2017 [facility] HEMATOLOGY Platelet 279 K/CMM 133 - 450 06/08/2017 [facility] HEMATOLOGY MPV 7.6 fL 7.4 - 10.4 06/08/2017 [facility] HEMATOLOGY RDW 13.4 % 11.5 - 14.5 06/08/2017 [facility] RBC 4.58 M/CMM 4.70 - 6.10 06/08/2017 [facility] WBC 9.7 K/CMM 3.7 - 10.4 06/08/2017 [facility] HEMATOLOGY INR 1.11 0.85 - 1.17 06/08/2017 [facility] PTT 29.1 s 22.9 - 35.8 06/08/2017 [facility] PT 14.3 s 12.0 - 14.7 06/08/2017 [facility] HEMATOLOGY Eosinophils # 0.3 K/CMM 0.0 - 0.5 06/08/2017 [facility] Monocytes # 0.9 K/CMM 0.0 - 0.8 06/08/2017 [facility] Lymphocytes 26.3 % 20.0 - 40.0 06/08/2017 [facility] HEMATOLOGY Eosinophils 3.6 % 0.0 - 4.0 06/08/2017 [facility] Monocytes 9.7 % 2.0 - 12.0 06/08/2017 [facility] Lymphocytes # 2.5 K/CMM 1.0 - 5.5 06/08/2017 [facility] Basophils 0.3 % 0.0 - 1.0 06/08/2017 [facility] Segs-Bands # 5.8 K/CMM 1.5 - 8.1 06/08/2017 [facility] HEMATOLOGY Segs 60.1 % 45.0 - 75.0 06/08/2017 [facility] CHEM PANEL Bili Total 0.5 mg/dL 0.2 - 1.3 06/08/2017 [facility] CHEM PANEL Alk Phos 82 unit/L 39 - 136 06/08/2017 [facility] CHEM PANEL AST 22 unit/L 0 - 37 06/08/2017 [facility] CHEM PANEL Total Protein 7.2 g/dL 6.4 - 8.4 06/08/2017 [facility] CHEM PANEL Albumin Lvl 3.7 g/dL 3.5 - 5.0 06/08/2017 [facility] [place] CHEM PANEL ALT 44 unit/L 0 - 65 [facility]08[facility]2017 [facility] eGFR 57 mL/min/1.73m2 06/08/2017 Result Comment: The eGFR is calculated using the CKD-EPI formula. In most young, healthy individuals the eGFR will be >90 mL/min/1.73m2. The eGFR declines with age. An eGFR of 60-89 may be normal in some populations, particularly the elderly, for whom the CKD-EPI formula has not been extensively validated. Use of the eGFR is not recommended in the following populations: Individuals with unstable creatinine concentrations, including patients and those with serious co-morbid conditions. Patients with extremes in muscle mass or diet. The data above are obtained from the National Kidney Disease Education Program (NKDEP) which additionally recommends that when the eGFR is used in patients with extremes of body mass index for purposes of drug dosing, the eGFR should be multiplied by the estimated BMI. [facility] Potassium Lvl 3.5 meq/L 3.5 - 5.1 06/08/2017 [facility] Sodium Lvl 134 meq/L 135 - 145 06/08/2017 [facility] Calcium Lvl 8.3 mg/dL 8.5 - 10.5 06/08/2017 [facility] CO2 32 meq/L 24 - 32 06/08/2017 [facility] Chloride Lvl 98 meq/L 95 - 109 06/08/2017 [facility] Creatinine Lvl 1.45 mg/dL 0.50 - 1.40 06/08/2017 [facility] BUN 17 mg/dL 7 - 22 06/08/2017 [facility] Glucose Lvl 87 mg/dL 70 - 99 06/08/2017 [facility] B/C Ratio 12 6 - 25 06/08/2017 [facility] AGAP 7.5 meq/L 10.0 - 20.0 06/08/2017 [facility] Globulin 3.5 g/dL 2.7 - 4.2 06/08/2017 [facility] A/G Ratio 1.1 0.7 - 1.6 06/08/2017 [facility] HEMATOLOGY MPV 7.5 fL 7.4 - 10.4 06/08/2017 [facility] HEMATOLOGY Platelet 283 K/CMM 133 - 450 06/08/2017 [facility] RDW 13.6 % 11.5 - 14.5 06/08/2017 [facility] MCHC 34.5 g/dL 32.0 - 36.0 06/08/2017 [facility] Hgb 14.7 g/dL 14.0 - 18.0 06/08/2017 [facility] RBC 4.69 M/CMM 4.70 - 6.10 06/08/2017 [facility] WBC 11.0 K/CMM 3.7 - 10.4 06/08/2017 [facility] MCH 31.4 pg 27.0 - 31.0 06/08/2017 [facility] Hct 42.7 % 42.0 - 54.0 06/08/2017 [facility] MCV 91.0 fL 80.0 - 94.0 06/08/2017 [facility] Monocytes # 1.0 K/CMM 0.0 - 0.8 06/08/2017 [facility] Eosinophils # 0.4 K/CMM 0.0 - 0.5 06/08/2017 [facility] Lymphocytes # 3.6 K/CMM 1.0 - 5.5 06/08/2017 [facility] Eosinophils 4.0 % 0.0 - 4.0 06/08/2017 [facility] Basophils 0.6 % 0.0 - 1.0 06/08/2017 [facility] Basophils # 0.1 K/CMM 0.0 - 0.2 06/08/2017 [facility] Lymphocytes 32.5 % 20.0 - 40.0 06/08/2017 [facility] Monocytes 9.3 % 2.0 - 12.0 06/08/2017 [facility] Segs 53.6 % 45.0 - 75.0 06/08/2017 [facility] Segs-Bands # 5.9 K/CMM 1.5 - 8.1 06/08/2017 [facility] Chest 1view DX Chest 1view DX Clinical Indication: - ? FB Comparison: 08/22/2015 FINDINGS: HEART: Moderate cardiomegaly. PULMONARY VASCULATURE: Mild pulmonary vasculature congestion versus perihilar nonspecific airspace opacity. LUNGS: Lung volumes are maintained. There are no pneumothoraces noted. Costophrenic sulci: -Right costophrenic sulcus: The right costophrenic sulcus is sharp without evidence for pleural effusions or thickening. -Left costophrenic sulcus: The left costophrenic sulcus is sharp without evidence for pleural effusions or thickening. BONES: The visualized osseous structures are unremarkable. IMPRESSION: 1. Moderate cardiomegaly with mild pulmonary vascular congestion versus nonspecific airspace infiltrate. SL: AR-PC 06/07/2017 - - Read by: Tigre Celestin DO Dictated Date/time: 06/07/17 22:33 Electronically Signed by: Tigre Celestin DO 06/07/17 22:34 FINAL REPORT [facility] DRUG SCREEN U Cannab Scr Negative *NA* (07/19/16 9:21 AM) Negative 07/19/2016 [facility] DRUG SCREEN U Cocaine Scr Negative *NA* (07/19/16 9:21 AM) Negative 07/19/2016 [facility] DRUG SCREEN U Opiate Scr Negative *NA* (07/19/16 9:21 AM) Negative 07/19/2016 [facility] DRUG SCREEN U Phencyc Scr Negative *NA* (07/19/16 9:21 AM) Negative 07/19/2016 [facility] DRUG SCREEN UDS Note See Note *NA* (07/19/16 9:21 AM) 07/19/2016 [facility] DRUG SCREEN U Benzodia Scr Negative *NA* (07/19/16 9:21 AM) Negative 07/19/2016 [facility] DRUG SCREEN U Sweta Scr Negative *NA* (07/19/16 9:21 AM) Negative 07/19/2016 [facility] DRUG SCREEN U Amph Scr Negative *NA* (07/19/16 9:21 AM) Negative 07/19/2016 [facility] CHEM PANEL A/G Ratio 0.9 0.7 - 1.6 07/19/2016 [facility] CHEM PANEL B/C Ratio 12 6 - 25 07/19/2016 [facility] CHEM PANEL AGAP 11.4 meq/L 10.0 - 20.0 07/19/2016 [facility] CHEM PANEL Globulin 3.6 g/dL 2.7 - 4.2 07/19/2016 [facility] CHEM PANEL eGFR 68 mL/min/1.73m2 07/19/2016 Result Comment: The eGFR is calculated using the CKD-EPI formula. In most young, healthy individuals the eGFR will be >90 mL/min/1.73m2. The eGFR declines with age. An eGFR of 60-89 may be normal in some populations, particularly the elderly, for whom the CKD-EPI formula has not been extensively validated. Use of the eGFR is not recommended in the following populations: Individuals with unstable creatinine concentrations, including patients and those with serious co-morbid conditions. Patients with extremes in muscle mass or diet. The data above are obtained from the National Kidney Disease Education Program (NKDEP) which additionally recommends that when the eGFR is used in patients with extremes of body mass index for purposes of drug dosing, the eGFR should be multiplied by the estimated BMI. [facility] Bili Total 0.3 mg/dL 0.2 - 1.3 07/19/2016 [facility] ASPARTATE TRANSAMINASE 12 unit/L 0 - 37 07/19/2016 [facility] Total Protein 6.9 g/dL 6.4 - 8.4 07/19/2016 [facility] CO2 30 meq/L 24 - 32 07/19/2016 [facility] Calcium Lvl 8.3 mg/dL 8.5 - 10.5 07/19/2016 [facility] Potassium Lvl 4.4 meq/L 3.5 - 5.1 07/19/2016 [place] CHEM PANEL Sodium Lvl 143 meq/L 135 - 145 07/19/2016 [facility] Chloride Lvl 106 meq/L 95 - 109 07/19/2016 [facility] BUN 15 mg/dL 7 - 22 07/19/2016 [facility] Glucose Lvl 86 mg/dL 70 - 99 07/19/2016 [facility] Creatinine Lvl 1.25 mg/dL 0.50 - 1.40 07/19/2016 [facility] ALANINE AMINOTRANSFERASE 39 unit/L 0 - 65 07/19/2016 [facility] Albumin Lvl 3.3 g/dL 3.5 - 5.0 07/19/2016 [facility] Alk Phos 86 unit/L 39 - 136 07/19/2016 [facility] HEMATOLOGY Segs-Bands # 4.7 K/CMM 1.5 - 8.1 07/19/2016 [facility] HEMATOLOGY Basophils 0.5 % 0.0 - 1.0 07/19/2016 [facility] Monocytes # 0.8 K/CMM 0.0 - 0.8 07/19/2016 [facility] Eosinophils # 0.3 K/CMM 0.0 - 0.5 07/19/2016 [facility] Lymphocytes # 2.5 K/CMM 1.0 - 5.5 07/19/2016 [facility] Segs 56.4 % 45.0 - 75.0 07/19/2016 [facility] Monocytes 9.4 % 2.0 - 12.0 07/19/2016 [facility] Lymphocytes 30.3 % 20.0 - 40.0 07/19/2016 [facility] Eosinophils 3.4 % 0.0 - 4.0 07/19/2016 [facility] RDW 14.2 % 11.5 - 14.5 07/19/2016 [facility] MCV 91.0 fL 80.0 - 94.0 07/19/2016 [facility] MCHC 33.9 g/dL 32.0 - 36.0 07/19/2016 [facility] Platelet 235 K/CMM 133 - 450 07/19/2016 [facility] MCH 30.8 pg 27.0 - 31.0 07/19/2016 [facility] MPV 8.0 fL 7.4 - 10.4 07/19/2016 [facility] WBC X 10x3 8.3 K/CMM 3.7 - 10.4 07/19/2016 [facility] Hct 42.3 % 42.0 - 54.0 07/19/2016 [facility] Hgb 14.3 g/dL 14.0 - 18.0 07/19/2016 [facility] RBC X 10x6 4.65 M/CMM 4.70 - 6.10 07/19/2016 [facility] Chest 2 views DX Chest 2 views DX PA and lateral chest: The cardiomediastinal silhouette, pulmonary vasculature and rubin are within normal limits. The lungs and pleural spaces are clear. There are no significant osseous abnormalities. There is no significant change compared to 05/25/2015. IMPRESSION: No acute radiographic abnormalities in the chest. [id number] 08/22/2015 - - Read by: Raciel Arnett MD Dictated Date/time: 08/22/15 16:40 Electronically Signed by: Raciel Arnett MD 08/22/15 16:41 FINAL REPORT [facility] Abdomen complete US Abdomen complete US PROCEDURE: Abdomen complete US REASON FOR EXAM: Nausea, vomiting, right upper quadrant pain. CLINICAL INFORMATION epigastric pain COMPARISON: 01/30/2011. CAT scan 05/25/2015. 07/21/2013. 02/14/2011. July 19, 2007. TECHNIQUE: Grayscale and limited color sonographic evaluation of the abdomen was performed with standard technique. FINDINGS: LIVER: The liver measures 18.1 cm sagittally. There is increased parenchymal echo texture. Presumed focal areas of fatty infiltration. BILE DUCTS: The intrahepatic and extrahepatic bile ducts are not dilated with the common bile duct measuring 3.6 mm. The distal common bile duct is not well seen. GALLBLADDER: There are no gallstones, gallbladder sludge, pericholecystic fluid or wall thickening. PANCREAS: The pancreas is obscured by bowel gas. SPLEEN: The spleen is unremarkable and measures 10.4 x 4.4 x 4.6 cm. KIDNEY: The right kidney measures 12.0 x 5.7 x 5.7 cm. The renal cortical thickness measures 1.6 cm. The left kidney measures 12.5 x 5.4 x 6.0 cm. The renal cortical thickness measures 1.5 cm. Presumed complex cyst appears to correlate to the 05/25/2015 exam. There is normal renal contour and morphology, with normal parenchymal echotexture. There is no hydronephrosis. AORTA AND INFERIOR VENA CAVA: Visualized portions appear unremarkable. ASCITES: There is no abdominal ascites. IMPRESSION: 1. Presumed complex left renal cyst appears to correlate to the May 25, 2015 CAT scan. Consider 4-6 month follow-up exam to document stability. 2. Hepatomegaly. Hepatocellular disease likely due to fatty infiltration. Presumed focal areas of fatty sparing which can be reevaluated on the follow-up exam. These findings were communicated to Che in the office of Dr. William at 8:59 a.m. SL: 15 06/15/2015 - - Read by: Victor M Lyles MD Dictated Date/time: 06/17/15 07:55 Electronically Signed by: Victor M Lyles MD 06/17/15 08:57 FINAL REPORT [facility] URINE AND STOOL UA Bacteria None Seen (05/25/15 4:58 PM) None Seen 05/25/2015 [facility] URINE AND STOOL UA Blood Negative (05/25/15 4:58 PM) Negative 05/25/2015 [facility] URINE AND STOOL UA Urobilinogen 0.2 EU/dL 0.1 - 1.0 05/25/2015 [facility] URINE AND STOOL UA Nitrite Negative (05/25/15 4:58 PM) Negative 05/25/2015 [facility] URINE AND STOOL UA Leuk Est Negative (05/25/15 4:58 PM) Negative 05/25/2015 [facility] URINE AND STOOL UA Sq Epi None Seen (05/25/15 4:58 PM) Few 05/25/2015 [facility] URINE AND STOOL UA WBC None Seen (05/25/15 4:58 PM) None Seen 05/25/2015 [facility] URINE AND STOOL UA RBC None Seen (05/25/15 4:58 PM) 0 - 2 05/25/2015 [facility] URINE AND STOOL UA Spec Grav <=1.005
*NA*
(05/25/15 4:58 PM) <=1.030 05/25/2015 [facility] URINE AND STOOL UA Ketones Negative *NA* (05/25/15 4:58 PM) Negative 05/25/2015 [facility] URINE AND STOOL UA pH 7.0 5.0 - 8.0 05/25/2015 [facility] URINE AND STOOL UA Protein Negative (05/25/15 4:58 PM) Negative 05/25/2015 [facility] URINE AND STOOL UA Bili Negative *NA* (05/25/15 4:58 PM) Negative 05/25/2015 [facility] URINE AND STOOL UA Glucose Negative (05/25/15 4:58 PM) Negative 05/25/2015 [facility] URINE AND STOOL UA Color Yellow *NA* (05/25/15 4:58 PM) Yellow 05/25/2015 [facility] URINE AND STOOL UA Turbidity Clear (05/25/15 4:58 PM) Clear 05/25/2015 [facility] CARDIAC ENZYMES CK MB Index 1.3 0.0 - 2.5 05/25/2015 [facility] CARDIAC ENZYMES CK MB 5.9 ng/mL 0.5 - 3.6 05/25/2015 [facility] CARDIAC ENZYMES Troponin-I null 0.00 - 0.40 05/25/2015 [facility] CARDIAC ENZYMES Total CK 460 unit/L 12 - 191 05/25/2015 [facility] CHEM PANEL A/G Ratio 1.1 0.7 - 1.6 05/25/2015 [facility] CHEM PANEL Bili Total 0.4 mg/dL 0.2 - 1.3 05/25/2015 [facility] CHEM PANEL Alk Phos 86 unit/L 39 - 136 05/25/2015 [facility] CHEM PANEL Globulin 3.5 g/dL 2.0 - 4.0 05/25/2015 [facility] CHEM PANEL Total Protein 7.3 g/dL 6.4 - 8.4 05/25/2015 [facility] CHEM PANEL eGFR 70 mL/min/1.73m2 05/25/2015 Result Comment: The eGFR is calculated using the CKD-EPI formula. In most young, healthy individuals the eGFR will be >90 mL/min/1.73m2. The eGFR declines with age. An eGFR of 60-89 may be normal in some populations, particularly the elderly, for whom the CKD-EPI formula has not been extensively validated. Use of the eGFR is not recommended in the following populations: Individuals with unstable creatinine concentrations, including patients and those with serious co-morbid conditions. Patients with extremes in muscle mass or diet. The data above are obtained from the National Kidney Disease Education Program (NKDEP) which additionally recommends that when the eGFR is used in patients with extremes of body mass index for purposes of drug dosing, the eGFR should be multiplied by the estimated BMI. [facility] CHEM PANEL AGAP 8.9 meq/L 10.0 - 20.0 05/25/2015 [facility] CHEM PANEL B/C Ratio 9 6 - 25 05/25/2015 [facility] CHEM PANEL AST 27 unit/L 0 - 37 05/25/2015 [facility] CHEM PANEL CO2 30 meq/L 24 - 32 05/25/2015 [facility] CHEM PANEL Calcium Lvl 8.4 mg/dL 8.5 - 10.5 05/25/2015 [facility] CHEM PANEL Chloride Lvl 105 meq/L 95 - 109 05/25/2015 [facility] CHEM PANEL Potassium Lvl 3.9 meq/L 3.5 - 5.1 05/25/2015 [facility] CHEM PANEL Sodium Lvl 140 meq/L 135 - 145 05/25/2015 [facility] CHEM PANEL Glucose Lvl 95 mg/dL 70 - 99 05/25/2015 [facility] CHEM PANEL Creatinine Lvl 1.23 mg/dL 0.50 - 1.40 05/25/2015 [facility] CHEM PANEL BUN 11 mg/dL 7 - 22 05/25/2015 [facility] CHEM PANEL Albumin Lvl 3.8 g/dL 3.5 - 5.0 05/25/2015 [facility] CHEM PANEL ALT 52 unit/L 0 - 65 05/25/2015 [facility] CHEM PANEL Lipase Lvl 158 unit/L 73 - 393 05/25/2015 [facility] HEMATOLOGY Eosinophils # 0.2 K/CMM 0.0 - 0.5 05/25/2015 [facility] HEMATOLOGY Segs 59.6 % 45.0 - 75.0 05/25/2015 [facility] HEMATOLOGY Lymphocytes 27.1 % 20.0 - 40.0 05/25/2015 [facility] HEMATOLOGY Eosinophils 2.9 % 0.0 - 4.0 05/25/2015 [facility] HEMATOLOGY Monocytes 9.9 % 2.0 - 12.0 05/25/2015 [facility] HEMATOLOGY Monocytes # 0.8 K/CMM 0.0 - 0.8 05/25/2015 [facility] HEMATOLOGY Segs-Bands # 5.0 K/CMM 1.5 - 8.1 05/25/2015 [facility] HEMATOLOGY Basophils 0.5 % 0.0 - 1.0 05/25/2015 [facility] HEMATOLOGY Lymphocytes # 2.3 K/CMM 1.0 - 5.5 05/25/2015 [facility] HEMATOLOGY Hct 45.7 % 42.0 - 54.0 05/25/2015 [facility] MCH 31.0 pg 27.0 - 31.0 05/25/2015 [facility] HEMATOLOGY MCV 92.6 fL 80.0 - 94.0 05/25/2015 [facility] HEMATOLOGY Hgb 15.3 g/dL 14.0 - 18.0 05/25/2015 [facility] HEMATOLOGY Platelet 295 K/CMM 133 - 450 05/25/2015 [facility] HEMATOLOGY MPV 7.8 fL 7.4 - 10.4 05/25/2015 [facility] HEMATOLOGY MCHC 33.5 g/dL 32.0 - 36.0 05/25/2015 [facility] HEMATOLOGY RDW 13.7 % 11.5 - 14.5 05/25/2015 [facility] HEMATOLOGY RBC 4.93 M/CMM 4.70 - 6.10 05/25/2015 [facility] HEMATOLOGY WBC 8.4 K/CMM 3.7 - 10.4 05/25/2015 [facility] ED Abdomen/Pelvis IV contrast only CT ED Abdomen/Pelvis IV contrast only CT CT abdomen and pelvis with IV contrast, May 25, 2015 04:15:00 PM CLINICAL HISTORY: Right lower quadrant abdominal pain ; nausea and vomiting TECHNIQUE: Routine 5 mm thick axial images of the abdomen and pelvis are obtained with IV contrast. Routine 5 minute delayed images were obtained. Coronal and sagittal reformations were created. COMPARISON: Abdominopelvic CT July 2013 FINDINGS: Visualized lung bases are clear. Mild diffuse fatty infiltration of liver suggested. Spleen, pancreas, adrenal glands, and kidneys are normal. Few small left renal cysts are present. The ureters are unremarkable. Partially distended bladder is unremarkable. Gallbladder is present. The stomach, small intestine, and colon are normal. Appendix is normal. No free air or free fluid is visualized within the abdominal cavity. No mesenteric or retroperitoneal lymphadenopathy is present. Bones demonstrate mid to lower lumbosacral spine degenerative disc disease, with L4/5 mild posterior broad-based disc protrusion causing mild spinal canal stenosis. IMPRESSION: Probable mild diffuse fatty infiltration of liver. SL: 14 05/25/2015 - - Read by: Javier Morales MD Dictated Date/time: 05/25/15 16:29 Electronically Signed by: Javier Morales MD 05/25/15 16:33 FINAL REPORT [facility] Chest 1view DX Chest 1view DX CHEST SINGLE VIEW: HX: Chest pain COMPARISON: 05/01/2015 FINDINGS: The lungs are free of consolidation or pleural effusion and the mediastinal silhouette is within normal limits of size. The visualized osseous structures are remarkable for old healed fracture of the midshaft of the right clavicle.. IMPRESSION: No acute abnormality noted. SL: 12 05/25/2015 - - Read by: Henrry Sneed MD Dictated Date/time: 05/25/15 15:47 Electronically Signed by: Henrry Sneed MD 05/25/15 15:48 FINAL REPORT [facility] CARDIAC ENZYMES CK MB Index 1.0 0.0 - 2.5 05/02/2015 [facility] CARDIAC ENZYMES BNP 6 pg/mL <=100 pg/mL 05/02/2015 [facility] CARDIAC ENZYMES Troponin-I null 0.00 - 0.40 05/02/2015 [facility] CARDIAC ENZYMES CK MB 2.0 ng/mL 0.5 - 3.6 05/02/2015 [facility] CARDIAC ENZYMES Total CK 197 unit/L 12 - 191 05/02/2015 [facility] CHEM PANEL eGFR 69 mL/min/1.73m2 05/02/2015 Result Comment: The eGFR is calculated using the CKD-EPI formula. In most young, healthy individuals the eGFR will be >90 mL/min/1.73m2. The eGFR declines with age. An eGFR of 60-89 may be normal in some populations, particularly the elderly, for whom the CKD-EPI formula has not been extensively validated. Use of the eGFR is not recommended in the following populations: Individuals with unstable creatinine concentrations, including patients and those with serious co-morbid conditions. Patients with extremes in muscle mass or diet. The data above are obtained from the National Kidney Disease Education Program (NKDEP) which additionally recommends that when the eGFR is used in patients with extremes of body mass index for purposes of drug dosing, the eGFR should be multiplied by the estimated BMI. [facility] CHEM PANEL Bili Total 0.2 mg/dL 0.2 - 1.3 05/02/2015 [facility] CHEM PANEL AGAP 7.8 meq/L 10.0 - 20.0 05/02/2015 [facility] CHEM PANEL Alk Phos 87 unit/L 39 - 136 05/02/2015 [facility] CHEM PANEL AST 15 unit/L 0 - 37 05/02/2015 [facility] CHEM PANEL Total Protein 6.8 g/dL 6.4 - 8.4 05/02/2015 [facility] CHEM PANEL Albumin Lvl 3.4 g/dL 3.5 - 5.0 05/02/2015 [facility] CHEM PANEL Calcium Lvl 8.3 mg/dL 8.5 - 10.5 05/02/2015 [facility] CHEM PANEL ALT 35 unit/L 0 - 65 05/02/2015 [facility] CHEM PANEL B/C Ratio 14 6 - 25 05/02/2015 [facility] CHEM PANEL Globulin 3.4 g/dL 2.0 - 4.0 05/02/2015 [facility] CHEM PANEL A/G Ratio 1.0 0.7 - 1.6 05/02/2015 [facility] CHEM PANEL CO2 32 meq/L 24 - 32 05/02/2015 [facility] CHEM PANEL Glucose Lvl 78 mg/dL 70 - 99 05/02/2015 [facility] CHEM PANEL BUN 17 mg/dL 7 - 22 05/02/2015 [facility] CHEM PANEL Potassium Lvl 3.8 meq/L 3.5 - 5.1 05/02/2015 [facility] CHEM PANEL Chloride Lvl 104 meq/L 95 - 109 05/02/2015 [facility] CHEM PANEL Creatinine Lvl 1.24 mg/dL 0.50 - 1.40 05/02/2015 [facility] CHEM PANEL Sodium Lvl 140 meq/L 135 - 145 05/02/2015 [facility] HEMATOLOGY Basophils # 0.1 K/CMM 0.0 - 0.2 05/02/2015 [facility] HEMATOLOGY Monocytes 11.4 % 2.0 - 12.0 05/02/2015 [facility] HEMATOLOGY Lymphocytes 35.6 % 20.0 - 40.0 05/02/2015 [facility] HEMATOLOGY Eosinophils 4.5 % 0.0 - 4.0 05/02/2015 [facility] HEMATOLOGY Basophils 0.9 % 0.0 - 1.0 05/02/2015 [facility] HEMATOLOGY Lymphocytes # 3.4 K/CMM 1.0 - 5.5 05/02/2015 [facility] HEMATOLOGY Segs-Bands # 4.5 K/CMM 1.5 - 8.1 05/02/2015 [facility] HEMATOLOGY Eosinophils # 0.4 K/CMM 0.0 - 0.5 05/02/2015 [facility] HEMATOLOGY Monocytes # 1.1 K/CMM 0.0 - 0.8 05/02/2015 [facility] HEMATOLOGY Segs 47.6 % 45.0 - 75.0 05/02/2015 [facility] HEMATOLOGY Platelet 266 K/CMM 133 - 450 05/02/2015 [facility] HEMATOLOGY MCHC 32.3 g/dL 32.0 - 36.0 05/02/2015 [facility] HEMATOLOGY MCH 30.2 pg 27.0 - 31.0 05/02/2015 [facility] HEMATOLOGY RDW 14.0 % 11.5 - 14.5 05/02/2015 [facility] HEMATOLOGY MPV 8.1 fL 7.4 - 10.4 05/02/2015 [facility] HEMATOLOGY WBC 9.4 K/CMM 3.7 - 10.4 05/02/2015 [facility] HEMATOLOGY RBC 4.61 M/CMM 4.70 - 6.10 05/02/2015 [facility] HEMATOLOGY Hgb 13.9 g/dL 14.0 - 18.0 05/02/2015 [facility] HEMATOLOGY MCV 93.5 fL 80.0 - 94.0 05/02/2015 [facility] HEMATOLOGY Hct 43.1 % 42.0 - 54.0 05/02/2015 [facility] Chest 1view DX Chest 1view DX PROCEDURE: Chest 1view REASON FOR EXAM: See Clinic Indication CLINICAL INDICATION: Chest pain COMPARISON: 02/25/2015. FINDINGS: No acute process. No focal consolidation, pleural effusion, or pneumothorax. Stable mildly enlarged cardiac silhouette. No definite failure. SL: 12 05/01/2015 - - Read by: Martin Kearns MD Dictated Date/time: 05/01/15 22:08 Electronically Signed by: Maritn Kearns MD 05/01/15 22:09 FINAL REPORT [facility] Chest 2 views DX Chest 2 views DX CHEST RADIOGRAPH 2 VIEWS INDICATION: Chest pain and shortness of breath COMPARISON: Chest radiograph 11/28/2014 FINDINGS: There is no consolidation, pleural effusion, or pneumothorax. No suspicious pulmonary nodules are identified. The cardiomediastinal silhouette and pulmonary vasculature are within normal limits. No acute bony abnormalities are seen. IMPRESSION: No acute intrathoracic abnormalities are visualized. SL: 16 02/25/2015 - - Read by: Alfonzo Mckeon MD Dictated Date/time: 02/25/15 19:54 Electronically Signed by: Alfonzo Mckeon MD 02/25/15 19:55 FINAL REPORT [facility] Abdomen 2 views DX Abdomen 2 views DX ABDOMINAL RADIOGRAPH 2 VIEWS INDICATION: Generalized acute abdominal pain COMPARISON: Abdominal radiograph 02/23/2014 IMPRESSION: A moderate to large amount stool is present throughout the abdomen, suggesting constipation. There is no bowel dilatation or evidence of pneumoperitoneum. SL: 16 02/25/2015 - - Read by: Alfonzo Mckeon MD Dictated Date/time: 02/25/15 19:59 Electronically Signed by: Alfonzo Mckeon MD 02/25/15 20:00 FINAL REPORT [facility] Finger 3 views DX Finger 3 views DX EXAM: Left ring finger. HISTORY: Trauma left ring finger. COMPARISON: None. TECHNIQUE: 3 views left ring finger. FINDINGS: Small avulsion fracture of the medial head of the middle phalanx of the left index finger. The distal and proximal phalanges are intact. SL: 12 12/28/2014 - - Read by: Buddy Calloway MD Dictated Date/time: 12/28/14 22:12 Electronically Signed by: Buddy Calloway MD 12/28/14 22:13 FINAL REPORT [facility] Chest 2 views DX Chest 2 views DX PA and lateral CHEST HISTORY: Chest pain A prior study of 07/20/2013 was reviewed. FINDINGS: The lungs are clear. There is mild cardiomegaly. There is no overt failure. There are no pleural effusions. There is an old healed right clavicular fracture with mild deformity. The regional skeleton is otherwise unremarkable. CONCLUSION: 1. No active disease. 2. Mild cardiomegaly. 3. Old healed right clavicular fracture Coding: Chest 2 views CPT code: 24848 SL: 13 Negrito Nash M.D. 11/28/2014 - - Read by: Negrito Nash MD Dictated Date/time: 11/28/14 15:35 Electronically Signed by: Negrito Nash MD 11/28/14 15:48 FINAL REPORT [facility] VIRAL - SEROLOGY Influ B Negative 3 (02/23/14 6:45 AM) Negative 02/23/2014 3Interpretive Data: Influenza A&B Antigen: Due to the low sensitivity of this test a negative result does not exclude influenza virus infection. A diagnosis of influenza should be considered based on a patient's clinical presentation and empiric antiviral treatment should be considered, if indicated. If more conclusive testing is desired, follow-up confirmatory testing with either viral culture or PCR is warranted. [facility] VIRAL - SEROLOGY Influ A Negative (02/23/14 6:45 AM) Negative 02/23/2014 [facility] CHEM PANEL ALT 42 unit/L 0 - 65 02/23/2014 [facility] CHEM PANEL AST 26 unit/L 0 - 37 02/23/2014 [facility] CHEM PANEL Albumin Lvl 3.7 g/dL 3.5 - 5.0 02/23/2014 [facility] CHEM PANEL Alk Phos 85 unit/L 39 - 136 02/23/2014 [facility] CHEM PANEL Bili Total 0.4 mg/dL 0.2 - 1.3 02/23/2014 [facility] CHEM PANEL eGFR 66 mL/min/1.73m2 02/23/2014 1Result Comment: The eGFR is calculated using the CKD-EPI formula. In most young, healthy individuals the eGFR will be >90 mL/min/1.73m2. The eGFR declines with age. An eGFR of 60-89 may be normal in some populations, particularly the elderly, for whom the CKD-EPI formula has not been extensively validated. Use of the eGFR is not recommended in the following populations: Individuals with unstable creatinine concentrations, including patients and those with serious co-morbid conditions. Patients with extremes in muscle mass or diet. The data above are obtained from the National Kidney Disease Education Program (NKDEP) which additionally recommends that when the eGFR is used in patients with extremes of body mass index for purposes of drug dosing, the eGFR should be multiplied by the estimated BMI. [facility] CHEM PANEL BUN 7 mg/dL 7 - 22 02/23/2014 [facility] CHEM PANEL Creatinine Lvl 1.3 mg/dL 0.5 - 1.4 02/23/2014 [facility] CHEM PANEL Total Protein 7.1 g/dL 6.4 - 8.4 02/23/2014 [facility] CHEM PANEL Chloride Lvl 105 meq/L 95 - 109 02/23/2014 [facility] CHEM PANEL CO2 28 meq/L 24 - 32 02/23/2014 [facility] CHEM PANEL Potassium Lvl 3.9 meq/L 3.5 - 5.1 02/23/2014 [facility] CHEM PANEL Sodium Lvl 140 meq/L 135 - 145 02/23/2014 [facility] CHEM PANEL Glucose Lvl 94 mg/dL 70 - 99 02/23/2014 2Interpretive Data: Adult reference range values reflect the clinical guidelines of the [place] [employer]. [facility] CHEM PANEL Calcium Lvl 8.8 mg/dL 8.5 - 10.5 02/23/2014 [facility] CHEM PANEL AGAP 10.9 meq/L 10.0 - 20.0 02/23/2014 [facility] CHEM PANEL A/G Ratio 1.1 0.7 - 1.6 02/23/2014 [facility] CHEM PANEL B/C Ratio 5 6 - 25 02/23/2014 [facility] CHEM PANEL Globulin 3.4 g/dL 2.0 - 4.0 02/23/2014 [facility] CHEM PANEL Lipase Lvl 110 unit/L 73 - 393 02/23/2014 [facility] HEMATOLOGY Platelet 302 K/CMM 133 - 450 02/23/2014 [facility] HEMATOLOGY MPV 8.0 fL 7.4 - 10.4 02/23/2014 [facility] HEMATOLOGY RBC 4.55 M/CMM 4.70 - 6.10 02/23/2014 [facility] HEMATOLOGY WBC 8.5 K/CMM 3.7 - 10.4 02/23/2014 [facility] MCV 93.3 fL 80.0 - 94.0 02/23/2014 [facility] Hct 42.5 % 42.0 - 54.0 02/23/2014 [facility] Hgb 14.2 g/dL 14.0 - 18.0 02/23/2014 [facility] MCHC 33.5 g/dL 32.0 - 36.0 02/23/2014 [facility] RDW 14.4 % 11.5 - 14.5 02/23/2014 [facility] MCH 31.3 pg 27.0 - 31.0 02/23/2014 [facility] Segs-Bands # 5.9 K/CMM 1.5 - 8.1 02/23/2014 [facility] Lymphocytes 20.2 % 20.0 - 40.0 02/23/2014 [facility] Segs 69.3 % 45.0 - 75.0 02/23/2014 [facility] Lymphocytes # 1.7 K/CMM 1.0 - 5.5 02/23/2014 [facility] Eosinophils # 0.2 K/CMM 0.0 - 0.5 02/23/2014 [facility] Monocytes # 0.7 K/CMM 0.0 - 0.8 02/23/2014 [facility] Eosinophils 2.0 % 0.0 - 4.0 02/23/2014 [facility] Monocytes 8.0 % 2.0 - 12.0 02/23/2014 [facility] Basophils 0.5 % 0.0 - 1.0 02/23/2014 [facility] Abdomen AP view Abdomen AP view PROCEDURE: Abdomen 1 view REASON FOR EXAM: See Clinic Indication CLINICAL INDICATION: Abdominal pain, acute COMPARISON: 07/22/2013. FINDINGS: Nonspecific bowel gas pattern is present. No definite free air. SL: 12 02/23/2014 - - Read by: Martin Kearns MD Dictated Date/time: 02/23/14 08:38 Electronically Signed by: Martin Kearns MD 02/23/14 08:39 FINAL REPORT [facility] CHEM PANEL Alk Phos 85 unit/L 39 - 136 02/22/2014 [facility] CHEM PANEL eGFR 68 mL/min/1.73m2 02/22/2014 1Result Comment: The eGFR is calculated using the CKD-EPI formula. In most young, healthy individuals the eGFR will be >90 mL/min/1.73m2. The eGFR declines with age. An eGFR of 60-89 may be normal in some populations, particularly the elderly, for whom the CKD-EPI formula has not been extensively validated. Use of the eGFR is not recommended in the following populations: Individuals with unstable creatinine concentrations, including patients and those with serious co-morbid conditions. Patients with extremes in muscle mass or diet. The data above are obtained from the National Kidney Disease Education Program (NKDEP) which additionally recommends that when the eGFR is used in patients with extremes of body mass index for purposes of drug dosing, the eGFR should be multiplied by the estimated BMI. [facility] CHEM PANEL Bili Total 0.6 mg/dL 0.2 - 1.3 02/22/2014 [facility] CHEM PANEL Calcium Lvl 8.6 mg/dL 8.5 - 10.5 02/22/2014 [facility] CHEM PANEL CO2 29 meq/L 24 - 32 02/22/2014 [facility] CHEM PANEL Potassium Lvl 3.9 meq/L 3.5 - 5.1 02/22/2014 [facility] CHEM PANEL Sodium Lvl 139 meq/L 135 - 145 02/22/2014 [facility] CHEM PANEL Chloride Lvl 104 meq/L 95 - 109 02/22/2014 [facility] CHEM PANEL BUN 8 mg/dL 7 - 22 02/22/2014 [facility] CHEM PANEL Creatinine Lvl 1.3 mg/dL 0.5 - 1.4 02/22/2014 [facility] CHEM PANEL ALT 49 unit/L 0 - 65 02/22/2014 [facility] CHEM PANEL Glucose Lvl 93 mg/dL 70 - 99 02/22/2014 2Interpretive Data: Adult reference range values reflect the clinical guidelines of the [place] [employer]. [facility] CHEM PANEL Albumin Lvl 3.7 g/dL 3.5 - 5.0 02/22/2014 [facility] CHEM PANEL AST 27 unit/L 0 - 37 02/22/2014 [facility] CHEM PANEL Total Protein 7.2 g/dL 6.4 - 8.4 02/22/2014 [facility] CHEM PANEL A/G Ratio 1.1 0.7 - 1.6 02/22/2014 [facility] CHEM PANEL Globulin 3.5 g/dL 2.0 - 4.0 02/22/2014 [facility] CHEM PANEL B/C Ratio 6 6 - 25 02/22/2014 [facility] CHEM PANEL AGAP 9.9 meq/L 10.0 - 20.0 02/22/2014 [facility] CHEM PANEL Lipase Lvl 132 unit/L 73 - 393 02/22/2014 [facility] HEMATOLOGY MPV 7.7 fL 7.4 - 10.4 02/22/2014 [facility] HEMATOLOGY Platelet 296 K/CMM 133 - 450 02/22/2014 [facility] HEMATOLOGY RDW 14.5 % 11.5 - 14.5 02/22/2014 [facility] HEMATOLOGY WBC 7.2 K/CMM 3.7 - 10.4 02/22/2014 [facility] HEMATOLOGY Hgb 14.8 g/dL 14.0 - 18.0 02/22/2014 [facility] HEMATOLOGY RBC 4.83 M/CMM 4.70 - 6.10 02/22/2014 [facility] HEMATOLOGY Hct 45.4 % 42.0 - 54.0 02/22/2014 [facility] HEMATOLOGY MCV 94.0 fL 80.0 - 94.0 02/22/2014 [facility] HEMATOLOGY MCH 30.7 pg 27.0 - 31.0 02/22/2014 [facility] HEMATOLOGY MCHC 32.7 g/dL 32.0 - 36.0 02/22/2014 [facility] HEMATOLOGY Lymphocytes # 1.6 K/CMM 1.0 - 5.5 02/22/2014 [facility] HEMATOLOGY Segs-Bands # 4.7 K/CMM 1.5 - 8.1 02/22/2014 [facility] HEMATOLOGY Basophils 0.6 % 0.0 - 1.0 02/22/2014 [facility] HEMATOLOGY Monocytes # 0.6 K/CMM 0.0 - 0.8 02/22/2014 [facility] HEMATOLOGY Eosinophils # 0.3 K/CMM 0.0 - 0.5 02/22/2014 [facility] HEMATOLOGY Lymphocytes 21.8 % 20.0 - 40.0 02/22/2014 [facility] HEMATOLOGY Monocytes 8.3 % 2.0 - 12.0 02/22/2014 [facility] HEMATOLOGY Eosinophils 4.0 % 0.0 - 4.0 02/22/2014 [facility] HEMATOLOGY Segs 65.3 % 45.0 - 75.0 02/22/2014 [facility] URINE AND STOOL UA RBC 0-2 /HPF 0 - 2 02/22/2014 [facility] URINE AND STOOL UA Bacteria Occasional /HPF None Seen /HPF 02/22/2014 [facility] URINE AND STOOL UA Sq Epi Occasional /LPF Few /LPF 02/22/2014 [facility] URINE AND STOOL UA WBC None Seen (02/22/14 7:54 AM) None Seen 02/22/2014 [facility] URINE AND STOOL UA Ketones Negative *NA* (02/22/14 7:54 AM) Negative 02/22/2014 [facility] URINE AND STOOL UA Blood Trace *ABN* (02/22/14 7:54 AM) Negative 02/22/2014 [facility] URINE AND STOOL UA Bili Negative *NA* (02/22/14 7:54 AM) Negative 02/22/2014 [facility] URINE AND STOOL UA Nitrite Negative (02/22/14 7:54 AM) Negative 02/22/2014 [facility] URINE AND STOOL UA Urobilinogen 0.2 EU/dL 0.1 - 1.0 02/22/2014 [facility] URINE AND STOOL UA Leuk Est Negative (02/22/14 7:54 AM) Negative 02/22/2014 [facility] URINE AND STOOL UA Spec Grav 1.010 <=1.030 02/22/2014 [facility] URINE AND STOOL UA Protein Negative (02/22/14 7:54 AM) Negative 02/22/2014 [facility] URINE AND STOOL UA Glucose Negative (02/22/14 7:54 AM) Negative 02/22/2014 [facility] URINE AND STOOL UA pH 6.0 5.0 - 8.0 02/22/2014 [facility] URINE AND STOOL UA Color Yellow *NA* (02/22/14 7:54 AM) Yellow 02/22/2014 [facility] URINE AND STOOL UA Turbidity Clear (02/22/14 7:54 AM) Clear 02/22/2014 [facility] CHEM PANEL B/C Ratio 12 6 - 25 09/27/2013 [facility] CHEM PANEL AGAP 8.6 meq/L 10.0 - 20.0 09/27/2013 [facility] CHEM PANEL A/G Ratio 1.0 0.7 - 1.6 09/27/2013 [facility] CHEM PANEL Globulin 4.2 g/dL 2.0 - 4.0 09/27/2013 [facility] CHEM PANEL eGFR 72 mL/min/1.73m2 09/27/2013 1Result Comment: The eGFR is calculated using the CKD-EPI formula. In most young, healthy individuals the eGFR will be >90 mL/min/1.73m2. The eGFR declines with age. An eGFR of 60-89 may be normal in some populations, particularly the elderly, for whom the CKD-EPI formula has not been extensively validated. Use of the eGFR is not recommended in the following populations: Individuals with unstable creatinine concentrations, including patients and those with serious co-morbid conditions. Patients with extremes in muscle mass or diet. The data above are obtained from the National Kidney Disease Education Program (NKDEP) which additionally recommends that when the eGFR is used in patients with extremes of body mass index for purposes of drug dosing, the eGFR should be multiplied by the estimated BMI. [facility] CHEM PANEL Total Protein 8.2 g/dL 6.4 - 8.4 09/27/2013 [facility] CHEM PANEL Calcium Lvl 9.3 mg/dL 8.5 - 10.5 09/27/2013 [facility] CHEM PANEL Bili Total 0.4 mg/dL 0.2 - 1.3 09/27/2013 [facility] CHEM PANEL AST 18 unit/L 0 - 37 09/27/2013 [facility] CHEM PANEL Potassium Lvl 3.6 meq/L 3.5 - 5.1 09/27/2013 [facility] CHEM PANEL CO2 30 meq/L 24 - 32 09/27/2013 [facility] CHEM PANEL Chloride Lvl 105 meq/L 95 - 109 09/27/2013 [facility] CHEM PANEL Glucose Lvl 104 mg/dL 70 - 99 09/27/2013 2Interpretive Data: Adult reference range values reflect the clinical guidelines of the [place] [employer]. [facility] CHEM PANEL ALT 46 unit/L 0 - 65 09/27/2013 [facility] CHEM PANEL Albumin Lvl 4.0 g/dL 3.5 - 5.0 09/27/2013 [facility] CHEM PANEL BUN 14 mg/dL 7 - 22 09/27/2013 [facility] CHEM PANEL Sodium Lvl 140 meq/L 135 - 145 09/27/2013 [facility] CHEM PANEL Creatinine Lvl 1.2 mg/dL 0.5 - 1.4 09/27/2013 [facility] CHEM PANEL Alk Phos 101 unit/L 39 - 136 09/27/2013 [facility] CHEM PANEL Lipase Lvl 211 unit/L 73 - 393 09/27/2013 [facility] HEMATOLOGY Hct 49.4 % 42.0 - 54.0 09/27/2013 [facility] HEMATOLOGY MCV 90.7 fL 80.0 - 94.0 09/27/2013 [facility] HEMATOLOGY RBC 5.45 M/CMM 4.70 - 6.10 09/27/2013 [facility] WBC 9.2 K/CMM 3.7 - 10.4 09/27/2013 [facility] Hgb 16.8 g/dL 14.0 - 18.0 09/27/2013 [facility] MCHC 33.9 g/dL 32.0 - 36.0 09/27/2013 [facility] MCH 30.7 pg 27.0 - 31.0 09/27/2013 [facility] MPV 8.3 fL 7.4 - 10.4 09/27/2013 [facility] RDW 14.0 % 11.5 - 14.5 09/27/2013 [facility] Platelet 304 K/CMM 133 - 450 09/27/2013 [facility] Eosinophils # 0.3 K/CMM 0.0 - 0.5 09/27/2013 [facility] Basophils # 0.1 K/CMM 0.0 - 0.2 09/27/2013 [facility] Segs-Bands # 6.0 K/CMM 1.5 - 8.1 09/27/2013 [facility] Lymphocytes # 2.1 K/CMM 1.0 - 5.5 09/27/2013 [facility] Monocytes # 0.8 K/CMM 0.0 - 0.8 09/27/2013 [facility] Eosinophils 3.5 % 0.0 - 4.0 09/27/2013 [facility] Basophils 0.6 % 0.0 - 1.0 09/27/2013 [facility] Segs 64.7 % 45.0 - 75.0 09/27/2013 [facility] Monocytes 8.4 % 2.0 - 12.0 09/27/2013 [facility] Lymphocytes 22.8 % 20.0 - 40.0 09/27/2013 [facility] CHEM PANEL Amylase Lvl 49 unit/L 25 - 115 08/01/2013 [facility] CHEM PANEL eGFR 87 mL/min/1.73m2 08/01/2013 1Result Comment: The eGFR is calculated using the CKD-EPI formula. In most young, healthy individuals the eGFR will be >90 mL/min/1.73m2. The eGFR declines with age. An eGFR of 60-89 may be normal in some populations, particularly the elderly, for whom the CKD-EPI formula has not been extensively validated. Use of the eGFR is not recommended in the following populations: Individuals with unstable creatinine concentrations, including patients and those with serious co-morbid conditions. Patients with extremes in muscle mass or diet. The data above are obtained from the National Kidney Disease Education Program (NKDEP) which additionally recommends that when the eGFR is used in patients with extremes of body mass index for purposes of drug dosing, the eGFR should be multiplied by the estimated BMI. [facility] CHEM PANEL Bili Total 0.5 mg/dL 0.2 - 1.3 08/01/2013 [facility] CHEM PANEL CO2 31 meq/L 24 - 32 08/01/2013 [facility] CHEM PANEL Calcium Lvl 8.9 mg/dL 8.5 - 10.5 08/01/2013 [facility] CHEM PANEL ASPARTATE TRANSAMINASE 18 unit/L 0 - 37 08/01/2013 [facility] CHEM PANEL Total Protein 7.8 g/dL 6.4 - 8.4 08/01/2013 [facility] CHEM PANEL ALANINE AMINOTRANSFERASE 41 unit/L 0 - 65 08/01/2013 [facility] CHEM PANEL Albumin Lvl 4.1 g/dL 3.5 - 5.0 08/01/2013 [facility] CHEM PANEL Alk Phos 85 unit/L 39 - 136 08/01/2013 [facility] CHEM PANEL Glucose Lvl 99 mg/dL 70 - 99 08/01/2013 2Interpretive Data: Adult reference range values reflect the clinical guidelines of the [place] [employer]. [facility] CHEM PANEL Creatinine Lvl 1.0 mg/dL 0.5 - 1.4 08/01/2013 [facility] CHEM PANEL BUN 16 mg/dL 7 - 22 08/01/2013 [facility] CHEM PANEL Chloride Lvl 106 meq/L 95 - 109 08/01/2013 [facility] CHEM PANEL Potassium Lvl 4.1 meq/L 3.5 - 5.1 08/01/2013 [facility] CHEM PANEL Sodium Lvl 142 meq/L 135 - 145 08/01/2013 [facility] CHEM PANEL B/C Ratio 16 6 - 25 08/01/2013 [facility] CHEM PANEL AGAP 9.1 meq/L 10.0 - 20.0 08/01/2013 [facility] CHEM PANEL A/G Ratio 1.1 0.7 - 1.6 08/01/2013 [facility] CHEM PANEL Globulin 3.7 g/dL 2.0 - 4.0 08/01/2013 [facility] CHEM PANEL Lipase Lvl 160 unit/L 73 - 393 08/01/2013 [facility] HEMATOLOGY Basophils 0.7 % 0.0 - 1.0 08/01/2013 [facility] HEMATOLOGY Eosinophils 3.7 % 0.0 - 4.0 08/01/2013 [facility] HEMATOLOGY Monocytes 8.8 % 2.0 - 12.0 08/01/2013 [facility] HEMATOLOGY Eosinophils # 0.3 K/CMM 0.0 - 0.5 08/01/2013 [facility] HEMATOLOGY Monocytes # 0.7 K/CMM 0.0 - 0.8 08/01/2013 [facility] HEMATOLOGY Basophils # 0.1 K/CMM 0.0 - 0.2 08/01/2013 [facility] HEMATOLOGY Lymphocytes # 1.3 K/CMM 1.0 - 5.5 08/01/2013 [facility] Segs-Bands # 5.6 K/CMM 1.5 - 8.1 08/01/2013 [facility] Segs 70.1 % 45.0 - 75.0 08/01/2013 [facility] Lymphocytes 16.7 % 20.0 - 40.0 08/01/2013 [facility] RDW 14.8 % 11.5 - 14.5 08/01/2013 [facility] Platelet 289 K/CMM 133 - 450 08/01/2013 [facility] MCHC 33.6 g/dL 32.0 - 36.0 08/01/2013 [facility] MCH 31.0 pg 27.0 - 31.0 08/01/2013 [facility] MPV 8.3 fL 7.4 - 10.4 08/01/2013 [facility] MCV 92.4 fL 80.0 - 94.0 08/01/2013 [facility] Hct 45.8 % 42.0 - 54.0 08/01/2013 [facility] Hgb 15.4 g/dL 14.0 - 18.0 08/01/2013 [facility] RBC X 10x6 4.96 M/CMM 4.70 - 6.10 08/01/2013 [facility] WBC X 10x3 7.9 K/CMM 3.7 - 10.4 08/01/2013 [facility] URINE AND STOOL UA Leuk Est Negative (08/01/2013 07:40:00 [place]) Negative 08/01/2013 [facility] URINE AND STOOL UA Nitrite Negative (08/01/2013 07:40:00 [place]) Negative 08/01/2013 [facility] URINE AND STOOL UA Urobilinogen 0.2 EU/dL 0.1 - 1.0 08/01/2013 [facility] URINE AND STOOL UA Sq Epi Few /LPF Few /LPF 08/01/2013 [facility] URINE AND STOOL UA Bili Negative *NA* (08/01/2013 07:40:00 [place]) Negative 08/01/2013 [facility] URINE AND STOOL UA Blood Negative (08/01/2013 07:40:00 [place]) Negative 08/01/2013 [facility] URINE AND STOOL UA Ketones Negative *NA* (08/01/2013 07:40:00 [place]) Negative 08/01/2013 [facility] URINE AND STOOL UA Turbidity Clear (08/01/2013 07:40:00 [place]) Clear 08/01/2013 [facility] URINE AND STOOL UA Protein Negative (08/01/2013 07:40:00 [place]) Negative 08/01/2013 [facility] URINE AND STOOL UA Glucose Negative (08/01/2013 07:40:00 [place]) Negative 08/01/2013 [facility] URINE AND STOOL UA pH 6.0 5.0 - 8.0 08/01/2013 [facility] URINE AND STOOL UA Spec Grav <=1.005
*NA*
(08/01/2013 07:40:00 [place]) <=1.030 08/01/2013 [facility] URINE AND STOOL UA Color Yellow *NA* (08/01/2013 07:40:00 [place]) Yellow 08/01/2013 [facility] URINE AND STOOL UA Sq Epi None Seen (07/22/2013 18:00:59 [place]) Few 07/22/2013 [facility] URINE AND STOOL UA WBC None Seen (07/22/2013 18:00:59 [place]) None Seen 07/22/2013 [facility] URINE AND STOOL Micro? Performed (07/22/2013 18:00:59 [place]) 07/22/2013 [facility] URINE AND STOOL UA RBC None Seen (07/22/2013 18:00:59 [place]) 0 - 2 07/22/2013 [facility] URINE AND STOOL UA Bacteria None Seen (07/22/2013 18:00:59 [place]) None Seen 07/22/2013 [facility] URINE AND STOOL UA Bili Negative *NA* (07/22/2013 18:00:59 [place]) Negative 07/22/2013 [facility] URINE AND STOOL UA Blood Negative (07/22/2013 18:00:59 [place]) Negative 07/22/2013 [facility] URINE AND STOOL UA Urobilinogen 0.2 EU/dL 0.1 - 1.0 07/22/2013 [facility] URINE AND STOOL UA Leuk Est Negative (07/22/2013 18:00:59 [place]) Negative 07/22/2013 [facility] URINE AND STOOL UA Nitrite Negative (07/22/2013 18:00:59 [place]) Negative 07/22/2013 [facility] URINE AND STOOL UA Protein Negative (07/22/2013 18:00:59 [place]) Negative 07/22/2013 [facility] URINE AND STOOL UA Spec Grav <=1.005
*NA*
(07/22/2013 18:00:59 [place]) <=1.030 07/22/2013 [facility] URINE AND STOOL UA Ketones Negative *NA* (07/22/2013 18:00:59 [place]) Negative 07/22/2013 [facility] URINE AND STOOL UA Glucose Negative (07/22/2013 18:00:59 [place]) Negative 07/22/2013 [facility] URINE AND STOOL UA pH 5.5 5.0 - 8.0 07/22/2013 [facility] URINE AND STOOL UA Turbidity Clear (07/22/2013 18:00:59 [place]) Clear 07/22/2013 [facility] URINE AND STOOL UA Color Yellow *NA* (07/22/2013 18:00:59 [place]) Yellow 07/22/2013 [facility] CHEM PANEL Lipase Lvl 168 unit/L 73 - 393 07/22/2013 [facility] CHEM PANEL A/G Ratio 1.4 0.7 - 1.6 07/22/2013 [facility] CHEM PANEL AGAP 7.7 meq/L 10.0 - 20.0 07/22/2013 [facility] CHEM PANEL B/C Ratio 11 6 - 25 07/22/2013 [facility] CHEM PANEL Globulin 3.3 g/dL 2.0 - 4.0 07/22/2013 [facility] CHEM PANEL eGFR 72 mL/min/1.73m2 07/22/2013 1Result Comment: The eGFR is calculated using the CKD-EPI formula. In most young, healthy individuals the eGFR will be >90 mL/min/1.73m2. The eGFR declines with age. An eGFR of 60-89 may be normal in some populations, particularly the elderly, for whom the CKD-EPI formula has not been extensively validated. Use of the eGFR is not recommended in the following populations: Individuals with unstable creatinine concentrations, including patients and those with serious co-morbid conditions. Patients with extremes in muscle mass or diet. The data above are obtained from the National Kidney Disease Education Program (NKDEP) which additionally recommends that when the eGFR is used in patients with extremes of body mass index for purposes of drug dosing, the eGFR should be multiplied by the estimated BMI. [facility] CHEM PANEL Potassium Lvl 3.7 meq/L 3.5 - 5.1 07/22/2013 [facility] CHEM PANEL Creatinine Lvl 1.2 mg/dL 0.5 - 1.4 07/22/2013 [facility] CHEM PANEL Sodium Lvl 139 meq/L 135 - 145 07/22/2013 [facility] CHEM PANEL Total Protein 7.8 g/dL 6.4 - 8.4 07/22/2013 [facility] CHEM PANEL Bili Total 0.4 mg/dL 0.2 - 1.3 07/22/2013 [facility] CHEM PANEL Calcium Lvl 9.3 mg/dL 8.5 - 10.5 07/22/2013 [facility] CHEM PANEL ASPARTATE TRANSAMINASE 21 unit/L 0 - 37 07/22/2013 [facility] CHEM PANEL CO2 31 meq/L 24 - 32 07/22/2013 [facility] CHEM PANEL Chloride Lvl 104 meq/L 95 - 109 07/22/2013 [facility] CHEM PANEL ALANINE AMINOTRANSFERASE 38 unit/L 0 - 65 07/22/2013 [facility] CHEM PANEL Albumin Lvl 4.5 g/dL 3.5 - 5.0 07/22/2013 [facility] CHEM PANEL Alk Phos 87 unit/L 39 - 136 07/22/2013 [facility] CHEM PANEL Glucose Lvl 69 mg/dL 70 - 99 07/22/2013 2Interpretive Data: Adult reference range values reflect the clinical guidelines of the [place] [employer]. [facility] CHEM PANEL BUN 13 mg/dL 7 - 22 07/22/2013 [facility] HEMATOLOGY Lymphocytes 24.4 % 20.0 - 40.0 07/22/2013 [facility] HEMATOLOGY Segs 62.2 % 45.0 - 75.0 07/22/2013 [facility] Monocytes 9.1 % 2.0 - 12.0 07/22/2013 [facility] Basophils 1.2 % 0.0 - 1.0 07/22/2013 [facility] Eosinophils 3.1 % 0.0 - 4.0 07/22/2013 [facility] Monocytes # 0.9 K/CMM 0.0 - 0.8 07/22/2013 [facility] Eosinophils # 0.3 K/CMM 0.0 - 0.5 07/22/2013 [facility] Segs-Bands # 6.2 K/CMM 1.5 - 8.1 07/22/2013 [facility] Lymphocytes # 2.4 K/CMM 1.0 - 5.5 07/22/2013 [facility] Basophils # 0.1 K/CMM 0.0 - 0.2 07/22/2013 [facility] WBC X 10x3 9.9 K/CMM 3.7 - 10.4 07/22/2013 [facility] Hgb 15.1 g/dL 14.0 - 18.0 07/22/2013 [facility] RBC X 10x6 4.81 M/CMM 4.70 - 6.10 07/22/2013 [facility] Hct 44.3 % 42.0 - 54.0 07/22/2013 [facility] Platelet 323 K/CMM 133 - 450 07/22/2013 [facility] MPV 8.5 fL 7.4 - 10.4 07/22/2013 [facility] MCV 92.0 fL 80.0 - 94.0 07/22/2013 [facility] RDW 14.4 % 11.5 - 14.5 07/22/2013 [facility] MCHC 34.1 g/dL 32.0 - 36.0 07/22/2013 [facility] MCH 31.3 pg 27.0 - 31.0 07/22/2013 [facility] INR 1.02 0.85 - 1.17 07/22/2013 3Interpretive Data: RECOMMENDED RANGES FOR PROTIME INR: 2.0-3.0 for most medical and surgical thromboembolic states. 2.5-3.5 for artificial heart valves and recurrent embolism. INR SHOULD BE USED ONLY FOR PATIENTS ON STABLE ANTICOAGULANT THERAPY. [facility] aPTT 26.7 s 22.9 - 35.8 07/22/2013 4Interpretive Data: Heparin Therapeutic Range: 57 - 92 Seconds [facility] HEMATOLOGY PROTIME 13.3 s 12.0 - 14.7 07/22/2013 [facility] Brain wo contrast CT Brain wo contrast CT EXAM: CT head HISTORY: Persistent headache. COMPARISON: CT 12/20/2010. TECHNIQUE: Axial noncontrast images of the head FINDINGS: Advanced parenchymal involutional changes and periventricular and subcortical white matter chronic small vessel ischemic changes. No parenchymal edema, mass- effect or midline shift. The ventricles are appropriate size for age. No intracranial hemorrhage or abnormal extra-axial fluid collection seen. No skull fracture seen. The visualized paranasal sinuses and mastoid air cells are clear. Calcifications of the carotid siphons bilaterally. IMPRESSION: 1. No acute intracranial abnormality. 2. Advanced parenchymal atrophy for age. SL:13 07/22/2013 - - Read by: Buddy Calloway Dictated Date/time: 07/22/13 18:00 Electronically Signed by: Buddy Calloway MD 07/22/13 18:04 FINAL REPORT [facility] Abdomen 2 views Abdomen 2 views Supine and upright abdomen: The gas pattern is within normal limits. There is no evidence of mass, organomegaly, or pneumoperitoneum. There are no significant calcifications. Generative changes are noted in the lumbar spine. The osseous structures are otherwise unremarkable. IMPRESSION: No acute radiographic abnormality in the abdomen. SL:13 07/22/2013 - - Read by: Raciel Arnett Dictated Date/time: 07/22/13 17:50 Electronically Signed by: Raciel Arnett MD 07/22/13 17:50 FINAL REPORT [facility] URINE AND STOOL UA Nitrite Negative (07/21/2013 07:00:00 [place]) Negative 07/21/2013 [facility] URINE AND STOOL Micro? Performed (07/21/2013 07:00:00 [place]) 07/21/2013 [facility] URINE AND STOOL UA Leuk Est Negative (07/21/2013 07:00:00 [place]) Negative 07/21/2013 [facility] URINE AND STOOL UA WBC None Seen (07/21/2013 07:00:00 [place]) None Seen 07/21/2013 [facility] URINE AND STOOL UA Sq Epi None Seen (07/21/2013 07:00:00 [place]) Few 07/21/2013 [facility] URINE AND STOOL UA RBC None Seen (07/21/2013 07:00:00 [place]) 0 - 2 07/21/2013 [facility] URINE AND STOOL UA Bacteria None Seen (07/21/2013 07:00:00 [place]) None Seen 07/21/2013 [facility] URINE AND STOOL UA Color Colorless (07/21/2013 07:00:00 [place]) Yellow 07/21/2013 [facility] URINE AND STOOL UA Bili Negative *NA* (07/21/2013 07:00:00 [place]) Negative 07/21/2013 [facility] URINE AND STOOL UA Glucose Negative (07/21/2013 07:00:00 [place]) Negative 07/21/2013 [facility] URINE AND STOOL UA Ketones Negative *NA* (07/21/2013 07:00:00 [place]ne/[place]) Negative 07/21/2013 [facility] URINE AND STOOL UA Urobilinogen 0.2 EU/dL 0.1 - 1.0 07/21/2013 [facility] URINE AND STOOL UA Blood Negative (07/21/2013 07:00:00 [place]) Negative 07/21/2013 [facility] URINE AND STOOL UA Spec Grav <=1.005
*NA*
(07/21/2013 07:00:00 [place]) <=1.030 07/21/2013 [facility] URINE AND STOOL UA Turbidity Clear (07/21/2013 07:00:00 [place]) Clear 07/21/2013 [facility] URINE AND STOOL UA Protein Negative (07/21/2013 07:00:00 [place]) Negative 07/21/2013 [facility] URINE AND STOOL UA pH 7.0 5.0 - 8.0 07/21/2013 [facility] CARDIAC ENZYMES CK-MB INDEX 0.7 0.0 - 2.5 07/21/2013 [facility] CARDIAC ENZYMES CK MB 2.2 ng/mL 0.5 - 3.6 07/21/2013 [facility] CARDIAC ENZYMES Total CK 306 unit/L 12 - 191 07/21/2013 [facility] CARDIAC ENZYMES Troponin-I null 0.00 - 0.40 07/21/2013 [facility] CHEM PANEL eGFR 87 mL/min/1.73m2 07/21/2013 1Result Comment: The eGFR is calculated using the CKD-EPI formula. In most young, healthy individuals the eGFR will be >90 mL/min/1.73m2. The eGFR declines with age. An eGFR of 60-89 may be normal in some populations, particularly the elderly, for whom the CKD-EPI formula has not been extensively validated. Use of the eGFR is not recommended in the following populations: Individuals with unstable creatinine concentrations, including patients and those with serious co-morbid conditions. Patients with extremes in muscle mass or diet. The data above are obtained from the National Kidney Disease Education Program (NKDEP) which additionally recommends that when the eGFR is used in patients with extremes of body mass index for purposes of drug dosing, the eGFR should be multiplied by the estimated BMI. [facility] CHEM PANEL Chloride Lvl 105 meq/L 95 - 109 07/21/2013 [facility] CHEM PANEL CO2 30 meq/L 24 - 32 07/21/2013 [facility] CHEM PANEL Calcium Lvl 8.9 mg/dL 8.5 - 10.5 07/21/2013 [facility] CHEM PANEL Bili Total 0.6 mg/dL 0.2 - 1.3 07/21/2013 [facility] CHEM PANEL Total Protein 6.8 g/dL 6.4 - 8.4 07/21/2013 [facility] CHEM PANEL ASPARTATE TRANSAMINASE 21 unit/L 0 - 37 07/21/2013 [facility] CHEM PANEL Creatinine Lvl 1.0 mg/dL 0.5 - 1.4 07/21/2013 [facility] CHEM PANEL Potassium Lvl 4.2 meq/L 3.5 - 5.1 07/21/2013 [facility] CHEM PANEL BUN 11 mg/dL 7 - 22 07/21/2013 [facility] CHEM PANEL Sodium Lvl 142 meq/L 135 - 145 07/21/2013 [facility] CHEM PANEL Albumin Lvl 3.8 g/dL 3.5 - 5.0 07/21/2013 [facility] CHEM PANEL ALANINE AMINOTRANSFERASE 40 unit/L 0 - 65 07/21/2013 [facility] CHEM PANEL Alk Phos 85 unit/L 39 - 136 07/21/2013 [facility] CHEM PANEL Glucose Lvl 90 mg/dL 70 - 99 07/21/2013 2Interpretive Data: Adult reference range values reflect the clinical guidelines of the [place] [employer]. [facility] CHEM PANEL Globulin 3.0 g/dL 2.0 - 4.0 07/21/2013 [facility] CHEM PANEL AGAP 11.2 meq/L 10.0 - 20.0 07/21/2013 [facility] CHEM PANEL B/C Ratio 11 6 - 25 07/21/2013 [facility] CHEM PANEL A/G Ratio 1.3 0.7 - 1.6 07/21/2013 [facility] CHEM PANEL Lipase Lvl 129 unit/L 73 - 393 07/21/2013 [facility] HEMATOLOGY Basophils # 0.1 K/CMM 0.0 - 0.2 07/21/2013 [facility] HEMATOLOGY Eosinophils # 0.4 K/CMM 0.0 - 0.5 07/21/2013 [facility] HEMATOLOGY Eosinophils 5.6 % 0.0 - 4.0 07/21/2013 [facility] HEMATOLOGY Lymphocytes # 2.1 K/CMM 1.0 - 5.5 07/21/2013 [facility] Basophils 1.0 % 0.0 - 1.0 07/21/2013 [facility] Monocytes # 0.6 K/CMM 0.0 - 0.8 07/21/2013 [facility] HEMATOLOGY Segs 51.6 % 45.0 - 75.0 07/21/2013 [facility] Monocytes 8.8 % 2.0 - 12.0 07/21/2013 [facility] Segs-Bands # 3.2 K/CMM 1.5 - 8.1 07/21/2013 [facility] Lymphocytes 33.0 % 20.0 - 40.0 07/21/2013 [facility] MPV 7.7 fL 7.4 - 10.4 07/21/2013 [facility] Platelet 270 K/CMM 133 - 450 07/21/2013 [facility] RDW 14.7 % 11.5 - 14.5 07/21/2013 [facility] MCHC 34.2 g/dL 32.0 - 36.0 07/21/2013 [facility] Hgb 14.7 g/dL 14.0 - 18.0 07/21/2013 [facility] RBC X 10x6 4.68 M/CMM 4.70 - 6.10 07/21/2013 [facility] HEMATOLOGY MCV 92.0 fL 80.0 - 94.0 07/21/2013 [facility] MCH 31.4 pg 27.0 - 31.0 07/21/2013 [facility] HEMATOLOGY WBC X 10x3 6.3 K/CMM 3.7 - 10.4 07/21/2013 [facility] HEMATOLOGY Hct 43.0 % 42.0 - 54.0 07/21/2013 [facility] Abdomen/Pelvis w IV contrast CT Abdomen/Pelvis w IV contrast CT HISTORY: Abdominal pain CT abdomen and pelvis with contrast. Lung bases visualized are clear. Liver, spleen, pancreas, adrenal glands and kidneys demonstrate no acute abnormality. There is no bowel obstruction free air or pathologic fluid. No aortic aneurysm. Pelvic CT demonstrates normal appendix. No evidence for diverticulitis. No pathologic pelvic fluid mass or inflammation otherwise. Chronic degenerative changes are present in the lower lumbar spine. IMPRESSION: No acute abnormality. SL:16 07/21/2013 - - Read by: Germain Kelly Dictated Date/time: 07/21/13 08:39 Electronically Signed by: Germain Kelly MD 07/21/13 08:42 FINAL REPORT [facility] VIRAL - SEROLOGY Influ B Negative 3 (07/20/2013 08:50:00 [place]vonne/[place]) Negative 07/20/2013 3Interpretive Data: Influenza A&B Antigen: Due to the low sensitivity of this test a negative result does not exclude influenza virus infection. A diagnosis of influenza should be considered based on a patient's clinical presentation and empiric antiviral treatment should be considered, if indicated. If more conclusive testing is desired, follow-up confirmatory testing with either viral culture or PCR is warranted. [facility] VIRAL - SEROLOGY Influ A Negative (07/20/2013 08:50:00 [place]) Negative 07/20/2013 [facility] CARDIAC ENZYMES CK-MB INDEX 0.7 0.0 - 2.5 07/20/2013 [facility] CARDIAC ENZYMES Troponin-I null 0.00 - 0.40 07/20/2013 [facility] CARDIAC ENZYMES Total CK 606 unit/L 12 - 191 07/20/2013 [facility] CARDIAC ENZYMES CK MB 4.3 ng/mL 0.5 - 3.6 07/20/2013 [facility] CHEM PANEL Lipase Lvl 157 unit/L 73 - 393 07/20/2013 [facility] CHEM PANEL eGFR 104 mL/min/1.73m2 07/20/2013 1Result Comment: The eGFR is calculated using the CKD-EPI formula. In most young, healthy individuals the eGFR will be >90 mL/min/1.73m2. The eGFR declines with age. An eGFR of 60-89 may be normal in some populations, particularly the elderly, for whom the CKD-EPI formula has not been extensively validated. Use of the eGFR is not recommended in the following populations: Individuals with unstable creatinine concentrations, including patients and those with serious co-morbid conditions. Patients with extremes in muscle mass or diet. The data above are obtained from the National Kidney Disease Education Program (NKDEP) which additionally recommends that when the eGFR is used in patients with extremes of body mass index for purposes of drug dosing, the eGFR should be multiplied by the estimated BMI. [facility] CHEM PANEL Albumin Lvl 4.0 g/dL 3.5 - 5.0 07/20/2013 [facility] CHEM PANEL ALANINE AMINOTRANSFERASE 45 unit/L 0 - 65 07/20/2013 [facility] CHEM PANEL Creatinine Lvl 0.9 mg/dL 0.5 - 1.4 07/20/2013 [facility] CHEM PANEL Chloride Lvl 108 meq/L 95 - 109 07/20/2013 [facility] CHEM PANEL Potassium Lvl 3.9 meq/L 3.5 - 5.1 07/20/2013 [facility] CHEM PANEL Glucose Lvl 96 mg/dL 70 - 99 07/20/2013 2Interpretive Data: Adult reference range values reflect the clinical guidelines of the [place] [employer]. [facility] CHEM PANEL Alk Phos 95 unit/L 39 - 136 07/20/2013 [facility] CHEM PANEL BUN 20 mg/dL 7 - 22 07/20/2013 [facility] CHEM PANEL CO2 28 meq/L 24 - 32 07/20/2013 [facility] CHEM PANEL Calcium Lvl 8.9 mg/dL 8.5 - 10.5 07/20/2013 [facility] CHEM PANEL Bili Total 0.4 mg/dL 0.2 - 1.3 07/20/2013 [facility] CHEM PANEL Total Protein 6.9 g/dL 6.4 - 8.4 07/20/2013 [facility] CHEM PANEL Globulin 2.9 g/dL 2.0 - 4.0 07/20/2013 [facility] CHEM PANEL ASPARTATE TRANSAMINASE 26 unit/L 0 - 37 07/20/2013 [facility] CHEM PANEL AGAP 10.9 meq/L 10.0 - 20.0 07/20/2013 [facility] CHEM PANEL B/C Ratio 22 6 - 25 07/20/2013 [facility] CHEM PANEL A/G Ratio 1.4 0.7 - 1.6 07/20/2013 [facility] CHEM PANEL Sodium Lvl 143 meq/L 135 - 145 07/20/2013 [facility] HEMATOLOGY Segs 59.9 % 45.0 - 75.0 07/20/2013 [facility] Eosinophils 6.0 % 0.0 - 4.0 07/20/2013 [facility] Monocytes 9.0 % 2.0 - 12.0 07/20/2013 [facility] Lymphocytes 24.3 % 20.0 - 40.0 07/20/2013 [facility] Basophils # 0.1 K/CMM 0.0 - 0.2 07/20/2013 [facility] HEMATOLOGY Segs-Bands # 4.4 K/CMM 1.5 - 8.1 07/20/2013 [facility] Basophils 0.8 % 0.0 - 1.0 07/20/2013 [facility] Eosinophils # 0.4 K/CMM 0.0 - 0.5 07/20/2013 [facility] Lymphocytes # 1.8 K/CMM 1.0 - 5.5 07/20/2013 [facility] Monocytes # 0.7 K/CMM 0.0 - 0.8 07/20/2013 [facility] MCH 30.7 pg 27.0 - 31.0 07/20/2013 [facility] MCHC 33.2 g/dL 32.0 - 36.0 07/20/2013 [facility] Platelet 282 K/CMM 133 - 450 07/20/2013 [facility] RDW 14.8 % 11.5 - 14.5 07/20/2013 [facility] MPV 8.0 fL 7.4 - 10.4 07/20/2013 [facility] Hgb 14.6 g/dL 14.0 - 18.0 07/20/2013 [facility] Hct 43.9 % 42.0 - 54.0 07/20/2013 [facility] MCV 92.6 fL 80.0 - 94.0 07/20/2013 [facility] RBC X 10x6 4.74 M/CMM 4.70 - 6.10 07/20/2013 [facility] WBC X 10x3 7.3 K/CMM 3.7 - 10.4 07/20/2013 [facility] Chest 1view Chest 1view EXAM: Portable chest x-ray. HISTORY: Chest pain. COMPARISON: 12/04/2012. TECHNIQUE: Portable frontal view of the chest. FINDINGS: No appreciable airspace disease or pleural effusion. Stable mild cardiomegaly. Old fracture right clavicle. SL: 16 07/20/2013 - - Read by: Buddy Calloway Dictated Date/time: 07/20/13 08:37 Electronically Signed by: Buddy Calloway MD 07/20/13 08:38 FINAL REPORT [facility] CHEMISTRY Troponin-I null 0.00 - 0.40 12/04/2012 Normal [facility] CHEMISTRY eGFR 67 mL/min/1.73m2 12/04/2012 NA 1Result Comment: The eGFR is calculated using the CKD-EPI formula. In most young, healthy individuals the eGFR will be >90 mL/min/1.73m2. The eGFR declines with age. An eGFR of 60-89 may be normal in some populations, particularly the elderly, for whom the CKD-EPI formula has not been extensively validated. Use of the eGFR is not recommended in the following populations: Individuals with unstable creatinine concentrations, including patients and those with serious co-morbid conditions. Patients with extremes in muscle mass or diet. The data above are obtained from the National Kidney Disease Education Program (NKDEP) which additionally recommends that when the eGFR is used in patients with extremes of body mass index for purposes of drug dosing, the eGFR should be multiplied by the estimated BMI. [facility] CHEMISTRY B/C Ratio 10 6 - 25 12/04/2012 Normal [facility] CHEMISTRY AGAP 13.1 meq/L 10.0 - 20.0 12/04/2012 Normal [facility] CHEMISTRY Globulin 3.7 g/dL 2.0 - 4.0 12/04/2012 Normal [facility] CHEMISTRY A/G Ratio 1.1 0.7 - 1.6 12/04/2012 Normal [facility] CHEMISTRY Bili Total 0.3 mg/dL 0.2 - 1.3 12/04/2012 Normal [facility] CHEMISTRY Alk Phos 97 unit/L 39 - 136 12/04/2012 Normal [facility] CHEMISTRY CO2 27 meq/L 24 - 32 12/04/2012 Normal [facility] CHEMISTRY AST 16 unit/L 0 - 37 12/04/2012 Normal [facility] CHEMISTRY Albumin Lvl 3.9 g/dL 3.5 - 5.0 12/04/2012 Normal [facility] CHEMISTRY Total Protein 7.6 g/dL 6.4 - 8.4 12/04/2012 Normal [facility] CHEMISTRY Calcium Lvl 8.8 mg/dL 8.5 - 10.5 12/04/2012 Normal [facility] CHEMISTRY ALT 40 unit/L 0 - 65 12/04/2012 Normal [facility] CHEMISTRY Creatinine Lvl 1.3 mg/dL 0.5 - 1.4 12/04/2012 Normal [facility] CHEMISTRY BUN 13 mg/dL 7 - 22 12/04/2012 Normal [facility] CHEMISTRY Glucose Lvl 92 mg/dL 70 - 99 12/04/2012 Normal 2Interpretive Data: Adult reference range values reflect the clinical guidelines of the [place] [employer]. [facility] CHEMISTRY Potassium Lvl 4.1 meq/L 3.5 - 5.1 12/04/2012 Normal [facility] CHEMISTRY Sodium Lvl 144 meq/L 135 - 145 12/04/2012 Normal [facility] CHEMISTRY Chloride Lvl 108 meq/L 95 - 109 12/04/2012 Normal [facility] CHEMISTRY CK MB null 0.5 - 3.6 12/04/2012 Normal [facility] CHEMISTRY Total CK 96 unit/L 12 - 191 12/04/2012 Normal [facility] CHEMISTRY UDS Note See Note 3 *NA* (12/04/2012 10:30:00) 12/04/2012 NA 3Interpretive Data: Drugs reported as positive have not been confirmed by a second method and should be used for medical purposes only. To order confirmation, contact laboratory. note: Below are cut-off concentrations for all urine drugs of abuse performed in the laboratory. Some drugs listed in the table may not be included in this panel. Description Cut-off concentration Amphetamine 1000 ng/mL Barbiturates 200 ng/mL Benzodiazepines 300 ng/mL Cocaine metabolites 300 ng/mL Opiates 300 ng/mL Phencyclidine 25 ng/mL Propoxyphene 300 ng/mL Marijuana metabolites 50 ng/mL Methadone 300 ng/mL Urine alcohol 20 mg/dL [facility] CHEMISTRY U Sweta Scr Negative *NA* (12/04/2012 10:30:00) Negative 12/04/2012 NA [facility] CHEMISTRY U Cannab Scr Negative *NA* (12/04/2012 10:30:00) Negative 12/04/2012 NA [facility] CHEMISTRY U Benzodia Scr Negative *NA* (12/04/2012 10:30:00) Negative 12/04/2012 NA [facility] CHEMISTRY U Opiate Scr Negative *NA* (12/04/2012 10:30:00) Negative 12/04/2012 NA [facility] CHEMISTRY U Cocaine Scr Negative *NA* (12/04/2012 10:30:00) Negative 12/04/2012 NA [facility] CHEMISTRY U Amph Scr Negative *NA* (12/04/2012 10:30:00) Negative 12/04/2012 [facility] CHEMISTRY U Phencyc Scr Negative *NA* (12/04/2012 10:30:00) Negative 12/04/2012 [facility] CHEMISTRY CK MB Index null 0.0 - 2.5 12/04/2012 Normal [facility] HEMATOLOGY MCV 92.4 fL 80.0 - 94.0 12/04/2012 Normal [facility] MCH 30.7 pg 27.0 - 31.0 12/04/2012 Normal [facility] WBC 8.2 K/CMM 3.7 - 10.4 12/04/2012 Normal [facility] RBC 4.80 M/CMM 4.70 - 6.10 12/04/2012 Normal [facility] MPV 8.4 fL 7.4 - 10.4 12/04/2012 Normal [facility] Hgb 14.7 g/dL 14.0 - 18.0 12/04/2012 Normal [facility] Hct 44.3 % 42.0 - 54.0 12/04/2012 Normal [facility] MCHC 33.3 g/dL 32.0 - 36.0 12/04/2012 Normal [facility] RDW 13.8 % 11.5 - 14.5 12/04/2012 Normal [facility] Platelet 306 K/CMM 133 - 450 12/04/2012 Normal [facility] D-Dimer 0.22 ug/mL FEU 12/04/2012 NA 4Interpretive Data: In DIC, quantitative D- Dimer is generally greater than 0.66 ug/mL FEU. Values of quantitative D-Dimer less than 0.40 ug/mL FEU have been reported to be associated with a low probability of deep vein thrombosis/pulmonary embolism. This test alone should not be used to rule out DVT/PE. [facility] HEMATOLOGY Segs 58.9 % 45.0 - 75.0 12/04/2012 Normal [facility] Monocytes # 0.7 K/CMM 0.0 - 0.8 12/04/2012 Normal [facility] HEMATOLOGY Lymphocytes # 2.2 K/CMM 1.0 - 5.5 12/04/2012 Normal [facility] HEMATOLOGY Eosinophils 5.0 % 0.0 - 4.0 12/04/2012 [facility] HEMATOLOGY Basophils 0.6 % 0.0 - 1.0 12/04/2012 Normal [facility] HEMATOLOGY Segs-Bands # 4.8 K/CMM 1.5 - 8.1 12/04/2012 Normal [facility] HEMATOLOGY Eosinophils # 0.4 K/CMM 0.0 - 0.5 12/04/2012 Normal [facility] HEMATOLOGY Basophils # 0.0 K/CMM 0.0 - 0.2 12/04/2012 Normal [facility] HEMATOLOGY Lymphocytes 27.1 % 20.0 - 40.0 12/04/2012 Normal [facility] HEMATOLOGY Monocytes 8.4 % 2.0 - 12.0 12/04/2012 Normal [facility] Chest 1view Chest 1view Chest one view. COMPARISON: 07/14/2010. FINDINGS: Limited AP portable study. Mild pulmonary underinflation. The lungs and pleural spaces are clear. The cardiomediastinal silhouette is unremarkable. No significant bony abnormality is visualized. IMPRESSION: No significant acute abnormality is noted on the one view chest. SL:13 12/04/2012 - - Read by: Tobi Peralta Dictated Date/time: 12/04/12 11:18 Electronically Signed by: Tobi Peralta MD 12/04/12 11:19 FINAL REPORT [facility] CHEMISTRY AGAP 12.9 meq/L 10.0 - 20.0 02/17/2011 Normal [facility] CHEMISTRY Calcium Lvl 8.7 mg/dL 8.5 - 10.5 02/17/2011 Normal [facility] CHEMISTRY Glucose Lvl 94.0 mg/dL 02/17/2011 NA 2Interpretive Data: Reference Ranges : 0 - 7 days : 41 - 90 mg/dL7 days - 150 yrs : 70 - 99 mg/dL (fasting), based on the clinical recommendations of the [place] [employer]. [facility] CHEMISTRY BUN 3.0 mg/dL 7 - 22 02/17/2011 LOW [facility] CHEMISTRY Sodium Lvl 145.0 meq/L 135 - 145 02/17/2011 Normal [facility] CHEMISTRY Creatinine Lvl 1.2 mg/dL 0.5 - 1.4 02/17/2011 Normal [facility] CHEMISTRY CO2 31.0 meq/L 24 - 32 02/17/2011 [facility] CHEMISTRY Potassium Lvl 3.9 meq/L 3.5 - 5.1 02/17/2011 Normal [facility] CHEMISTRY Chloride Lvl 105.0 meq/L 95 - 109 02/17/2011 Normal [facility] HEMATOLOGY Monocytes # 0.9 K/CMM 0.0 - 0.8 02/17/2011 [facility] HEMATOLOGY Lymphocytes # 2.7 K/CMM 1.0 - 5.5 02/17/2011 Normal [facility] HEMATOLOGY Basophils # 0.0 K/CMM 0.0 - 0.2 02/17/2011 Normal [facility] HEMATOLOGY Eosinophils # 0.3 K/CMM 0.0 - 0.5 02/17/2011 Normal [facility] HEMATOLOGY Monocytes 10.8 % 2.0 - 12.0 02/17/2011 Normal [facility] HEMATOLOGY Lymphocytes 33.8 % 20.0 - 40.0 02/17/2011 Normal [facility] HEMATOLOGY Segs 51.8 % 45.0 - 75.0 02/17/2011 Normal [facility] HEMATOLOGY Segs-Bands # 4.2 K/CMM 1.5 - 8.1 02/17/2011 Normal [facility] HEMATOLOGY Eosinophils 3.4 % 0.0 - 4.0 02/17/2011 Normal [facility] HEMATOLOGY Basophils 0.2 % 0.0 - 1.0 02/17/2011 Normal [facility] HEMATOLOGY MPV 9.1 fL 7.4 - 10.4 02/17/2011 Normal [facility] HEMATOLOGY Platelet 252.0 K/CMM 133 - 450 02/17/2011 Normal [facility] HEMATOLOGY RDW 13.6 % 11.5 - 14.5 02/17/2011 Normal [facility] HEMATOLOGY MCH 30.3 pg 27.0 - 31.0 02/17/2011 Normal [facility] HEMATOLOGY MCHC 33.3 g/dL 32.0 - 36.0 02/17/2011 Normal [facility] HEMATOLOGY Hgb 12.7 g/dL 14.0 - 18.0 02/17/2011 LOW [facility] HEMATOLOGY RBC 4.18 M/CMM 4.70 - 6.10 02/17/2011 LOW [facility] HEMATOLOGY WBC 8.1 K/CMM 3.7 - 10.4 02/17/2011 Normal [facility] HEMATOLOGY MCV 91.1 fL 80.0 - 94.0 02/17/2011 Normal [facility] HEMATOLOGY Hct 38.1 % 42.0 - 54.0 02/17/2011 LOW [facility] TUMOR MARKERS CA 19-9 9.3 U/mL 0.0 - 35.0 02/17/2011 Normal [facility] CHEMISTRY AGAP 11.3 meq/L 10.0 - 20.0 02/16/2011 Normal [facility] CHEMISTRY B/C Ratio 4.0 6 - 25 02/16/2011 LOW [facility] CHEMISTRY Globulin 2.7 g/dL 2.0 - 4.0 02/16/2011 Normal [facility] CHEMISTRY A/G Ratio 1.1 0.7 - 1.6 02/16/2011 Normal [facility] CHEMISTRY BUN 5.0 mg/dL 7 - 22 02/16/2011 LOW [facility] CHEMISTRY Glucose Lvl 92.0 mg/dL 02/16/2011 NA 3Interpretive Data: Reference Ranges : 0 - 7 days : 41 - 90 mg/dL7 days - 150 yrs : 70 - 99 mg/dL (fasting), based on the clinical recommendations of the [place] [employer]. [facility] CHEMISTRY Albumin Lvl 3.1 g/dL 3.5 - 5.0 02/16/2011 LOW [facility] CHEMISTRY ALT 26.0 U/L 0 - 65 02/16/2011 Normal [facility] CHEMISTRY Alk Phos 72.0 U/L 39 - 136 02/16/2011 Normal [facility] CHEMISTRY Bili Total 0.3 mg/dL 0.2 - 1.3 02/16/2011 Normal [facility] CHEMISTRY AST 13.0 U/L 0 - 37 02/16/2011 Normal [facility] CHEMISTRY CO2 30.0 meq/L 24 - 32 02/16/2011 Normal [facility] CHEMISTRY Chloride Lvl 107.0 meq/L 95 - 109 02/16/2011 Normal [facility] CHEMISTRY Calcium Lvl 8.5 mg/dL 8.5 - 10.5 02/16/2011 Normal [facility] CHEMISTRY Total Protein 5.8 g/dL 6.4 - 8.4 02/16/2011 LOW [facility] CHEMISTRY Creatinine Lvl 1.3 mg/dL 0.5 - 1.4 02/16/2011 Normal [facility] CHEMISTRY Sodium Lvl 144.0 meq/L 135 - 145 02/16/2011 Normal [facility] CHEMISTRY Potassium Lvl 4.3 meq/L 3.5 - 5.1 02/16/2011 Normal [facility] CHEMISTRY TSH 1.84 uIU/mL 0.360 - 3.740 02/16/2011 Normal [facility] HEMATOLOGY RDW 13.7 % 11.5 - 14.5 02/16/2011 Normal [facility] HEMATOLOGY MCV 89.9 fL 80.0 - 94.0 02/16/2011 Normal [facility] HEMATOLOGY MCH 31.5 pg 27.0 - 31.0 02/16/2011 [facility] HEMATOLOGY MCHC 35.1 g/dL 32.0 - 36.0 02/16/2011 Normal [facility] HEMATOLOGY MPV 8.7 fL 7.4 - 10.4 02/16/2011 Normal [facility] HEMATOLOGY Platelet 253.0 K/CMM 133 - 450 02/16/2011 Normal [facility] HEMATOLOGY RBC 3.99 M/CMM 4.70 - 6.10 02/16/2011 LOW [facility] HEMATOLOGY Hgb 12.6 g/dL 14.0 - 18.0 02/16/2011 LOW [facility] HEMATOLOGY Hct 35.9 % 42.0 - 54.0 02/16/2011 LOW [facility] HEMATOLOGY WBC 7.6 K/CMM 3.7 - 10.4 02/16/2011 Normal [facility] HEMATOLOGY Lymphocytes 36.4 % 20.0 - 40.0 02/16/2011 Normal [facility] HEMATOLOGY Monocytes 10.4 % 2.0 - 12.0 02/16/2011 Normal [facility] HEMATOLOGY Basophils 0.3 % 0.0 - 1.0 02/16/2011 Normal [facility] HEMATOLOGY Lymphocytes # 2.7 K/CMM 1.0 - 5.5 02/16/2011 Normal [facility] HEMATOLOGY Segs-Bands # 3.7 K/CMM 1.5 - 8.1 02/16/2011 Normal [facility] HEMATOLOGY Segs 48.9 % 45.0 - 75.0 02/16/2011 Normal [facility] HEMATOLOGY Basophils # 0.0 K/CMM 0.0 - 0.2 02/16/2011 Normal [facility] HEMATOLOGY Eosinophils 4.0 % 0.0 - 4.0 02/16/2011 Normal [facility] HEMATOLOGY Eosinophils # 0.3 K/CMM 0.0 - 0.5 02/16/2011 Normal [facility] HEMATOLOGY Monocytes # 0.8 K/CMM 0.0 - 0.8 02/16/2011 Normal [facility] CHEMISTRY CO2 28.0 meq/L 24 - 32 02/15/2011 Normal [facility] CHEMISTRY Chloride Lvl 110.0 meq/L 95 - 109 02/15/2011 [facility] CHEMISTRY Calcium Lvl 8.3 mg/dL 8.5 - 10.5 02/15/2011 LOW [facility] CHEMISTRY Glucose Lvl 99.0 mg/dL 02/15/2011 NA 4Interpretive Data: Reference Ranges : 0 - 7 days : 41 - 90 mg/dL7 days - 150 yrs : 70 - 99 mg/dL (fasting), based on the clinical recommendations of the [place] [employer]. [facility] CHEMISTRY BUN 16.0 mg/dL 7 - 22 02/15/2011 Normal [facility] CHEMISTRY Potassium Lvl 4.4 meq/L 3.5 - 5.1 02/15/2011 Normal [facility] CHEMISTRY Creatinine Lvl 1.1 mg/dL 0.5 - 1.4 02/15/2011 Normal [facility] CHEMISTRY Sodium Lvl 143.0 meq/L 135 - 145 02/15/2011 Normal [facility] CHEMISTRY AGAP 9.4 meq/L 10.0 - 20.0 02/15/2011 LOW [facility] HEMATOLOGY Hct 42.9 % 42.0 - 54.0 02/15/2011 Normal [facility] HEMATOLOGY MCV 95.1 fL 80.0 - 94.0 02/15/2011 [facility] HEMATOLOGY RDW 12.6 % 11.5 - 14.5 02/15/2011 Normal [facility] HEMATOLOGY MCHC 35.4 g/dL 32.0 - 36.0 02/15/2011 Normal [facility] HEMATOLOGY Platelet 228.0 K/CMM 133 - 450 02/15/2011 Normal [facility] HEMATOLOGY MCH 33.6 pg 27.0 - 31.0 02/15/2011 [facility] HEMATOLOGY MPV 7.9 fL 7.4 - 10.4 02/15/2011 Normal [facility] HEMATOLOGY WBC 6.2 K/CMM 3.7 - 10.4 02/15/2011 Normal [facility] HEMATOLOGY RBC 4.51 M/CMM 4.70 - 6.10 02/15/2011 LOW [facility] HEMATOLOGY Hgb 15.2 g/dL 14.0 - 18.0 02/15/2011 Normal [facility] HEMATOLOGY PTT 27.7 s 22.9 - 35.8 02/15/2011 Normal 6Interpretive Data: Heparin Therapeutic Range: 57 - 92 Seconds [facility] HEMATOLOGY PT 12.6 s 12.0 - 14.7 02/15/2011 Normal [facility] HEMATOLOGY INR 0.94 0.85 - 1.17 02/15/2011 Normal 5Interpretive Data: RECOMMENDED RANGES FOR PROTIME INR: 2.0-3.0 for most medical and surgical thromboembolic states. 2.5-3.5 for artificial heart valves and recurrent embolism.INR SHOULD BE USED ONLY FOR PATIENTS ON STABLE ANTICOAGULANT THERAPY. [facility] HEMATOLOGY Basophils # 0.0 K/CMM 0.0 - 0.2 02/15/2011 Normal [facility] HEMATOLOGY Monocytes # 0.7 K/CMM 0.0 - 0.8 02/15/2011 Normal [facility] HEMATOLOGY Basophils 0.2 % 0.0 - 1.0 02/15/2011 Normal [facility] HEMATOLOGY Lymphocytes # 2.9 K/CMM 1.0 - 5.5 02/15/2011 Normal [facility] HEMATOLOGY Segs-Bands # 2.3 K/CMM 1.5 - 8.1 02/15/2011 Normal [facility] HEMATOLOGY Eosinophils 4.1 % 0.0 - 4.0 02/15/2011 [facility] HEMATOLOGY Monocytes 10.9 % 2.0 - 12.0 02/15/2011 Normal [facility] HEMATOLOGY Lymphocytes 46.7 % 20.0 - 40.0 02/15/2011 [facility] HEMATOLOGY Segs 38.1 % 45.0 - 75.0 02/15/2011 LOW [facility] HEMATOLOGY Eosinophils # 0.2 K/CMM 0.0 - 0.5 02/15/2011 Normal [facility] CHEMISTRY Globulin 4.1 g/dL 2.0 - 4.0 02/15/2011 [facility] CHEMISTRY Albumin Lvl 4.2 g/dL 3.5 - 5.0 02/15/2011 Normal [facility] CHEMISTRY Total Protein 8.3 g/dL 6.4 - 8.4 02/15/2011 Normal [facility] CHEMISTRY B/C Ratio 7.0 6 - 25 02/15/2011 Normal [facility] CHEMISTRY Bili Total 0.5 mg/dL 0.2 - 1.3 02/15/2011 Normal [facility] CHEMISTRY Alk Phos 95.0 U/L 39 - 136 02/15/2011 Normal [facility] CHEMISTRY ALT 35.0 U/L 0 - 65 02/15/2011 Normal [facility] CHEMISTRY A/G Ratio 1.0 0.7 - 1.6 02/15/2011 Normal [facility] CHEMISTRY AST 15.0 U/L 0 - 37 02/15/2011 Normal [facility] CHEMISTRY Lipase Lvl 155.0 U/L 73 - 393 02/15/2011 [facility] CHEMISTRY Amylase Lvl 49.0 U/L 25 - 115 02/15/2011 Normal [facility] URINALYSIS UA Urobilinogen 0.2 EU/dL 0.1 - 1.0 02/15/2011 Normal [facility] URINALYSIS UA Leuk Est Negative (02/14/2011 19:18:00) ?? >Negative 02/15/2011 Normal [facility] URINALYSIS UA Nitrite Negative (02/14/2011 19:18:00) ?? >Negative 02/15/2011 Normal [facility] URINALYSIS UA Color Yellow *NA* (02/14/2011 19:18:00) ?? >Yellow 02/15/2011 NA [facility] URINALYSIS UA Turbidity Clear (02/14/2011 19:18:00) ?? >Clear 02/15/2011 Normal [facility] URINALYSIS UA Ketones Trace *ABN* (02/14/2011 19:18:00) ?? >Negative 02/15/2011 ABN [facility] URINALYSIS UA Glucose Negative (02/14/2011 19:18:00) ?? >Negative 02/15/2011 Normal [facility] URINALYSIS UA pH 5.5 5.0 - 8.0 02/15/2011 Normal [facility] URINALYSIS UA Protein Negative (02/14/2011 19:18:00) ?? >Negative 02/15/2011 Normal [facility] URINALYSIS UA Blood Small *ABN* (02/14/2011 19:18:00) ?? >Negative 02/15/2011 ABN [facility] URINALYSIS UA Bili Small 1 *ABN* (02/14/2011 19:18:00) ?? >Negative 02/15/2011 ABN 1Result Comment: confirmed with Ictotest Method [facility] URINALYSIS UA Spec Grav >=1.030 *ABN* (02/14/2011 19:18:00) ?? <<=1.030 02/15/2011 ABN [facility] URINALYSIS UA Mucus Few /LPF (02/14/2011 19:18:00) ?? >None Seen 02/15/2011 Normal [facility] URINALYSIS UA Bacteria None Seen (02/14/2011 19:18:00) ?? >None Seen 02/15/2011 Normal [facility] URINALYSIS UA RBC 0-2 /HPF (02/14/2011 19:18:00) ?? >0 - 2 02/15/2011 Normal [facility] URINALYSIS UA WBC 0-2 /HPF (02/14/2011 19:18:00) ?? >None Seen 02/15/2011 Normal [facility] URINALYSIS UA Sq Epi None Seen (02/14/2011 19:18:00) ?? >Few 02/15/2011 Normal [facility] URINALYSIS Micro? Performed (02/14/2011 19:18:00) ?? 02/15/2011 Normal [facility] Vital Signs Vital Sign Value Date Comments Source Respitory Rate 16 06/08/2017 [facility] Systolic (mm Hg) 117 06/08/2017 [facility] Diastolic (mm Hg) 68 06/08/2017 [facility] Temperature Oral (F) 97.9 F 06/08/2017 [facility] Respitory Rate 10 06/08/2017 [facility] Systolic (mm Hg) 117 06/08/2017 [facility] Diastolic (mm Hg) 69 06/08/2017 [facility] Systolic (mm Hg) 109 06/08/2017 [facility] Diastolic (mm Hg) 56 06/08/2017 [facility] Respitory Rate 26 06/08/2017 [facility] Heart Rate 55 06/08/2017 [facility] Heart Rate 58 06/08/2017 [facility] Temperature Oral (F) 97.8 F 06/08/2017 [facility] Temperature Oral (F) 98 F 06/08/2017 [facility] Heart Rate 59 06/08/2017 [facility] Height 193.04 cm 06/08/2017 [facility] Weight 124.045 06/08/2017 [facility] BMI Calculated 33.29 06/08/2017 [facility] Weight 122.727 06/08/2017 [facility] Height 193.04 cm 06/08/2017 [facility] BMI Calculated 32.93 06/08/2017 [facility] Temperature Oral (F) 97.5 F 07/19/2016 [facility] Respitory Rate 18 07/19/2016 [facility] Heart Rate 44 07/19/2016 [facility] [facility] Systolic (mm Hg) 121 07/19/2016 [facility] Diastolic (mm Hg) 78 07/19/2016 [facility] Respitory Rate 18 07/19/2016 [facility] Temperature Oral (F) 97.7 F 07/19/2016 [facility] Heart Rate 51 07/19/2016 [facility] Systolic (mm Hg) 123 07/19/2016 [facility] Diastolic (mm Hg) 70 07/19/2016 [facility] Weight 115 07/19/2016 [facility] BMI Calculated 30.86 07/19/2016 [facility] Height 193.04 cm 07/19/2016 [facility] Temperature Oral (F) 98.9 F 07/19/2016 [facility] Heart Rate 52 07/19/2016 [facility] Respitory Rate 18 07/19/2016 [facility] Systolic (mm Hg) 124 07/19/2016 [facility] Diastolic (mm Hg) 79 07/19/2016 [facility] Temperature Oral (F) 98 F 03/12/2016 [facility] Heart Rate 56 03/12/2016 [facility] Respitory Rate 16 03/12/2016 [facility] Systolic (mm Hg) 100 03/12/2016 [facility] Diastolic (mm Hg) 76 03/12/2016 [facility] BMI Calculated 33.3 03/12/2016 [facility] Weight 111.364 03/12/2016 [facility] Temperature Oral (F) 98.2 F 03/12/2016 [facility] Heart Rate 78 03/12/2016 [facility] Respitory Rate 18 03/12/2016 [facility] Height 182.88 cm 03/12/2016 [facility] Systolic (mm Hg) 124 03/12/2016 [facility] Diastolic (mm Hg) 73 03/12/2016 [facility] Heart Rate 98 09/13/2015 [facility] Height 193.04 cm 09/13/2015 [facility] Respitory Rate 18 09/13/2015 [facility] Temperature Oral (F) 98.0 F 09/13/2015 [facility] Systolic (mm Hg) 136 09/13/2015 [facility] Diastolic (mm Hg) 79 09/13/2015 [facility] Weight 120.455 09/13/2015 [facility] BMI Calculated 32.32 09/13/2015 [facility] Heart Rate 98 09/03/2015 [facility] Systolic (mm Hg) 146 09/03/2015 [facility] Diastolic (mm Hg) 84 09/03/2015 [facility] Respitory Rate 18 09/03/2015 [facility] Temperature Oral (F) 98.1 F 09/03/2015 [facility] Height 193.04 cm 09/03/2015 [facility] BMI Calculated 32.32 09/03/2015 [facility] Weight 120.455 09/03/2015 [facility] Heart Rate 72 08/22/2015 [facility] Temperature Oral (F) 98.1 F 08/22/2015 [facility] Respitory Rate 18 08/22/2015 [facility] Systolic (mm Hg) 109 08/22/2015 [facility] Diastolic (mm Hg) 67 08/22/2015 [facility] Respitory Rate 18 08/22/2015 [facility] Systolic (mm Hg) 139 08/22/2015 [facility] Diastolic (mm Hg) 80 08/22/2015 [facility] Heart Rate 82 08/22/2015 [facility] Temperature Oral (F) 98.1 F 08/22/2015 [facility] BMI Calculated 31.71 08/22/2015 [facility] Weight 118.182 08/22/2015 [facility] Height 193.04 cm 08/22/2015 [facility] Temperature Oral (F) 98.4 F 08/22/2015 [facility] Systolic (mm Hg) 138 08/22/2015 [facility] Diastolic (mm Hg) 81 08/22/2015 [facility] Respitory Rate 18 08/22/2015 [facility] Heart Rate 85 08/22/2015 [facility] Systolic (mm Hg) 134 05/26/2015 [facility] Diastolic (mm Hg) 77 05/26/2015 [facility] Respitory Rate 16 05/26/2015 [facility] Temperature Oral (F) 97.9 F 05/26/2015 [facility] Heart Rate 65 05/26/2015 [facility] Heart Rate 71 05/25/2015 [facility] Systolic (mm Hg) 143 05/25/2015 [facility] Diastolic (mm Hg) 78 05/25/2015 [facility] Temperature Oral (F) 98.1 F 05/25/2015 [facility] Respitory Rate 18 05/25/2015 [facility] Weight 120.909 05/25/2015 [facility] Heart Rate 63 05/02/2015 [facility] Systolic (mm Hg) 121 05/02/2015 [facility] Diastolic (mm Hg) 64 05/02/2015 [facility] Temperature Oral (F) 98 F 05/02/2015 [facility] Respitory Rate 18 05/02/2015 [facility] BMI Calculated 33.45 05/02/2015 [facility] Weight 118.182 05/02/2015 [facility] Systolic (mm Hg) 151 05/02/2015 [facility] Diastolic (mm Hg) 81 05/02/2015 [facility] Respitory Rate 18 05/02/2015 [facility] Heart Rate 81 05/02/2015 [facility] Height 187.96 cm 05/02/2015 [facility] Temperature Oral (F) 97.8 F 05/02/2015 [facility] Heart Rate 72 03/20/2015 [facility] Temperature Oral (F) 97.7 F 03/20/2015 [facility] Respitory Rate 18 03/20/2015 [facility] Systolic (mm Hg) 120 03/20/2015 [facility] Diastolic (mm Hg) 80 03/20/2015 [facility] Weight 118.182 03/19/2015 [facility] Temperature Oral (F) 97.7 F 03/19/2015 [facility] Systolic (mm Hg) 150 03/19/2015 [facility] Diastolic (mm Hg) 88 03/19/2015 [facility] Respitory Rate 18 03/19/2015 [facility] Heart Rate 72 03/19/2015 [facility] BMI Calculated 31.71 03/19/2015 [facility] Height 193.04 cm 03/19/2015 [facility] Height 182.88 cm 01/19/2015 [facility] Weight 143.182 01/19/2015 [facility] BMI Calculated 42.81 01/19/2015 [facility] Systolic (mm Hg) 146 01/19/2015 [facility] Diastolic (mm Hg) 90 01/19/2015 [facility] Temperature Oral (F) 98.1 F 01/19/2015 [facility] Heart Rate 70 01/19/2015 [facility] Respitory Rate 18 01/19/2015 [facility] Systolic (mm Hg) 117 01/19/[address] [facility] Diastolic (mm Hg) 75 01/19/[address] [facility] Respitory Rate 18 01/19/[address] [facility] Temperature Oral (F) 97.4 F 01/19/[address] [facility] Heart Rate 68 01/19/[address] [facility] Weight 109.091 01/19/[address] [facility] BMI Calculated 29.27 01/19/[address] [facility] Respitory Rate 18 01/19/[address] [facility] Temperature Oral (F) 98.0 F 01/19/[address] [facility] Height 193.04 cm 01/19/[address] [facility] Systolic (mm Hg) 121 01/19/[address] [facility] Diastolic (mm Hg) 78 01/19/[address] [facility] Heart Rate 77 01/19/[address] [facility] Respitory Rate 16 12/29/2014 [facility] Heart Rate 89 12/29/2014 [facility] Temperature Oral (F) 97.6 F 12/29/2014 [facility] Weight 90.909 12/29/2014 [facility] Systolic (mm Hg) 158 12/29/2014 [facility] Diastolic (mm Hg) 95 12/29/2014 [facility] Temperature Oral (F) 97.6 F 12/29/2014 [facility] Respitory Rate 16 12/29/2014 [facility] Heart Rate 91 12/29/2014 [facility] Temperature Oral (F) 97.6 F 11/28/2014 [facility] Respitory Rate 18 11/28/2014 [facility] Heart Rate 65 11/28/2014 [facility] Systolic (mm Hg) 118 11/28/2014 [facility] Diastolic (mm Hg) 80 11/28/2014 [facility] Systolic (mm Hg) 125 11/28/2014 [facility] Diastolic (mm Hg) 80 11/28/2014 [facility] Respitory Rate 20 11/28/2014 [facility] Heart Rate 60 11/28/2014 [facility] Temperature Oral (F) 97.4 F 11/28/2014 [facility] Weight 122.727 11/28/2014 [facility] BMI Calculated 32.93 11/28/2014 [facility] Height 193.04 cm 11/28/2014 [facility] Temperature Oral (F) 97.5 F 11/28/2014 [facility] Systolic (mm Hg) 157 11/28/2014 [facility] Diastolic (mm Hg) 89 11/28/2014 [facility] Respitory Rate 18 11/28/2014 [facility] Heart Rate 70 11/28/2014 [facility] Temperature Oral (F) 97.9 F 10/20/2014 [facility] Heart Rate 81 10/20/2014 [facility] Systolic (mm Hg) 155 10/20/2014 [facility] Diastolic (mm Hg) 85 10/20/2014 [facility] Respitory Rate 18 10/20/2014 [facility] Weight 118.182 10/20/2014 [facility] BMI Calculated 31.71 10/20/2014 [facility] Height 193.04 cm 10/20/2014 [facility] Respitory Rate 27 02/23/2014 [facility] Diastolic (mm Hg) 74 02/23/2014 [facility] Systolic (mm Hg) 130 02/23/2014 [facility] Systolic (mm Hg) 135 02/23/2014 [facility] Diastolic (mm Hg) 75 02/23/2014 [facility] Respitory Rate 29 02/23/2014 [facility] Systolic (mm Hg) 134 02/23/2014 [facility] Respitory Rate 22 02/23/2014 [facility] Diastolic (mm Hg) 81 02/23/2014 [facility] Temperature Oral (F) 98.4 F 02/23/2014 [facility] Heart Rate 69 02/23/2014 [facility] Weight 122.727 02/23/2014 [facility] BMI Calculated 32.93 02/23/2014 [facility] Height 193.04 cm 02/23/2014 [facility] Heart Rate 67 02/23/2014 [facility] Temperature Oral (F) 97.7 F 02/23/2014 [facility] Respitory Rate 20 02/22/2014 [facility] Diastolic (mm Hg) 75 02/22/2014 [facility] Heart Rate 56 02/22/2014 [facility] Systolic (mm Hg) 130 02/22/2014 [facility] Temperature Oral (F) 98.1 F 02/22/2014 [facility] Weight 122.727 02/22/2014 [facility] Systolic (mm Hg) 145 02/22/2014 [facility] Heart Rate 72 02/22/2014 [facility] Respitory Rate 20 02/22/2014 [facility] Temperature Oral (F) 97.8 F 02/22/2014 [facility] Diastolic (mm Hg) 89 02/22/2014 [facility] Weight 122.727 01/10/2014 [facility] BMI Calculated 32.93 01/10/2014 [facility] Height 193.04 cm 01/10/2014 [facility] Diastolic (mm Hg) 85 01/10/2014 [facility] Systolic (mm Hg) 144 01/10/2014 [facility] Heart Rate 61 01/10/2014 [facility] Respitory Rate 18 01/10/2014 [facility] Temperature Oral (F) 99 F 01/10/2014 [facility] Weight 122.727 01/10/2014 [facility] BMI Calculated 32.93 01/10/2014 [facility] Height 193.04 cm 01/10/2014 [facility] Temperature Oral (F) 98.1 F 01/10/2014 [facility] Respitory Rate 20 01/10/2014 [facility] Heart Rate 74 01/10/2014 [facility] Diastolic (mm Hg) 80 01/10/2014 [facility] Systolic (mm Hg) 129 01/10/2014 [facility] Weight 122.727 12/22/2013 [facility] Height 193.04 cm 12/22/2013 [facility] BMI Calculated 32.93 12/22/2013 [facility] Temperature Oral (F) 98.7 F 12/22/2013 [facility] Respitory Rate 18 12/22/2013 [facility] Heart Rate 86 12/22/2013 [facility] Diastolic (mm Hg) 108 12/22/2013 [facility] Systolic (mm Hg) 167 12/22/2013 [facility] Respitory Rate 16 09/27/2013 [facility] Diastolic (mm Hg) 78 09/27/2013 [facility] Temperature Oral (F) 98.0 F 09/27/2013 [facility] Heart Rate 85 09/27/2013 [facility] Systolic (mm Hg) 136 09/27/2013 [facility] Weight 122.727 09/27/2013 [facility] BMI Calculated 32.93 09/27/2013 [facility] Height 193.04 cm 09/27/2013 [facility] Temperature Oral (F) 97.9 F 09/27/2013 [facility] Heart Rate 94 09/27/2013 [facility] Diastolic (mm Hg) 86 09/27/2013 [facility] Systolic (mm Hg) 137 09/27/2013 [facility] Respitory Rate 18 09/27/2013 [facility] Height 193.04 cm 08/01/2013 [facility] BMI Calculated 32.93 08/01/2013 [facility] Weight 122.727 08/01/2013 [facility] Heart Rate 82 08/01/2013 [facility] Respitory Rate 18 08/01/2013 [facility] Temperature Oral (F) 97.7 F 08/01/2013 [facility] Diastolic (mm Hg) 102 08/01/2013 [facility] Systolic (mm Hg) 151 08/01/2013 [facility] Respitory Rate 16 08/01/2013 [facility] Temperature Oral (F) 97.7 F 08/01/2013 [facility] Diastolic (mm Hg) 81 08/01/2013 [facility] Systolic (mm Hg) 146 08/01/2013 [facility] Heart Rate 57 08/01/2013 [facility] Weight 122.727 08/01/2013 [facility] BMI Calculated 32.93 08/01/2013 [facility] Height 193.04 cm 08/01/2013 [facility] Temperature Oral (F) 97.7 F 08/01/2013 [facility] Diastolic (mm Hg) 90 08/01/2013 [facility] Heart Rate 84 08/01/2013 [facility] Systolic (mm Hg) 144 08/01/2013 [facility] Respitory Rate 18 08/01/2013 [facility] Respitory Rate 20 07/23/2013 [facility] Diastolic (mm Hg) 75 07/23/2013 [facility] Heart Rate 79 07/23/2013 [facility] Systolic (mm Hg) 129 07/23/2013 [facility] Diastolic (mm Hg) 80 07/22/2013 [facility] Systolic (mm Hg) 139 07/22/2013 [facility] Respitory Rate 18 07/22/2013 [facility] Heart Rate 78 07/22/2013 [facility] Weight 122.727 07/22/2013 [facility] BMI Calculated 32.93 07/22/2013 [facility] Heart Rate 80 07/22/2013 [facility] Systolic (mm Hg) 146 07/22/2013 [facility] Respitory Rate 20 07/22/2013 [facility] Diastolic (mm Hg) 89 07/22/2013 [facility] Temperature Oral (F) 98.3 F 07/22/2013 [facility] Height 193.04 cm 07/22/2013 [facility] Heart Rate 67 07/21/2013 [facility] Systolic (mm Hg) 128 07/21/2013 [facility] Diastolic (mm Hg) 78 07/21/2013 [facility] Temperature Oral (F) 97.8 F 07/21/2013 [facility] Heart Rate 87 07/21/2013 [facility] Diastolic (mm Hg) 72 07/21/2013 [facility] Systolic (mm Hg) 122 07/21/2013 [facility] Diastolic (mm Hg) 72 07/21/2013 [facility] Systolic (mm Hg) 130 07/21/2013 [facility] Respitory Rate 16 07/21/2013 [facility] Heart Rate 55 07/21/2013 [facility] Respitory Rate 18 07/21/2013 [facility] Weight 122.727 07/21/2013 [facility] BMI Calculated 32.93 07/21/2013 [facility] Height 193.04 cm 07/21/2013 [facility] Respitory Rate 20 07/21/2013 [facility] Temperature Oral (F) 98.5 F 07/21/2013 [facility] Temperature Oral (F) 97.3 F 07/20/2013 [facility] Respitory Rate 19 07/20/2013 [facility] Systolic (mm Hg) 119 07/20/2013 [facility] Heart Rate 64 07/20/2013 [facility] Diastolic (mm Hg) 73 07/20/2013 [facility] Systolic (mm Hg) 122 07/20/2013 [facility] Diastolic (mm Hg) 78 07/20/2013 [facility] Respitory Rate 18 07/20/2013 [facility] Heart Rate 61 07/20/2013 [facility] BMI Calculated 34.06 07/20/2013 [facility] Weight 126.932 07/20/2013 [facility] Height 193.04 cm 07/20/2013 [facility] Systolic (mm Hg) 147 07/20/2013 [facility] Respitory Rate 18 07/20/2013 [facility] Temperature Oral (F) 97.5 F 07/20/2013 [facility] Heart Rate 66 07/20/2013 [facility] Diastolic (mm Hg) 91 07/20/2013 [facility] Weight 122.727 12/04/2012 [facility] Height 193.04 cm 12/04/2012 [facility] Weight 122.727 11/23/2012 [facility] Height 193.04 cm 11/23/2012 [facility] Height 193.04 cm 10/09/2012 [facility] Weight 122.727 10/09/2012 [facility] Height 193.04 cm 09/28/2012 [facility] Weight 113.636 09/28/2012 [facility] Weight 122.727 04/17/2012 [facility] Height 193.04 cm 04/17/2012 [facility] Systolic (mm Hg) 129.0 02/17/2011 [facility] Diastolic (mm Hg) 74.0 02/17/2011 [facility] Heart Rate 47.0 02/17/2011 [facility] Respitory Rate 20.0 02/17/2011 [facility] Systolic (mm Hg) 128.0 02/17/2011 [facility] Diastolic (mm Hg) 76.0 02/17/2011 [facility] Heart Rate 53.0 02/17/2011 [facility] Respitory Rate 20.0 02/17/2011 [facility] Systolic (mm Hg) 127.0 02/17/2011 [facility] Diastolic (mm Hg) 68.0 02/17/2011 [facility] Respitory Rate 20.0 02/17/2011 [facility] Heart Rate 45.0 02/17/2011 [facility] Temperature Oral (F) 98.0 F 02/17/2011 [facility] Temperature Oral (F) 97.5 F 02/17/2011 [facility] Temperature Oral (F) 97.6 F 02/17/2011 [facility] Height 190.5 cm 02/14/2011 [facility] Weight 113.636 02/14/2011 [facility] Encounters Location Location Details Encounter Type Encounter Number Reason For Visit Attending Provider ADM Date DC Date Status Source [facility] [id number] CLAYTON HOLMAN 01/30/2011 01/30/2011 [facility] [id number] MARLINE HARDING 02/14/2011 02/17/2011 [facility] [id number] ERNESTO KOO 04/17/2012 04/17/2012 [facility] [id number] MAGGIE ALFREDO 09/28/2012 09/28/2012 [facility] [id number] ASEM SOUMAN 10/09/2012 10/09/2012 [facility] [id number] NADIM JEW 11/23/2012 11/23/2012 [facility] [id number] JOHNNY SY 12/04/2012 12/04/2012 Active [facility] [id number] _MAPID:[id number] Rakesh De La Cruz 07/20/2013 07/20/2013 [facility] [id number] _MAPID:[id number] Freddy Linares 07/21/2013 07/21/2013 [facility] [id number] _MAPID:[id number] Bob Hodges 07/22/2013 07/23/2013 [facility] [id number] _MAPID:[id number] Bob Hodges 08/01/2013 08/01/2013 [facility] [id number] _MAPID:[id number] Horace Avendaño 08/01/2013 08/01/2013 [facility] [id number] Tremaine Weldon 09/27/2013 09/27/2013 [facility] [id number] Clayton Nevarez 12/22/2013 12/22/2013 [facility] [id number] Clayton Wright 01/10/2014 01/10/2014 [facility] [id number] Sanjeev Menonta 01/10/2014 01/10/2014 [facility] [id number] Clayton Nevarez 02/22/2014 02/22/2014 [facility] [id number] Clint Villagomez 02/23/2014 02/23/2014 [facility] [id number] Sanjeev Menonta 10/20/2014 10/20/2014 [facility] [id number] Tammi Adan 11/28/2014 11/28/2014 [facility] [id number] Amilcar Freire 12/29/2014 12/29/2014 [facility] [id number] Elizabeth Schraderckett 01/19/2015 01/19/2015 [facility] [id number] Darren Mcmullen 01/19/2015 01/19/2015 [facility] [id number] Sanjeev Martinez 03/19/2015 03/20/2015 [facility] [id number] Lisa Masters 05/02/2015 05/02/2015 [facility] [id number] Kaleigh Hooper 05/25/2015 05/26/2015 [facility] Outpatient Imaging [facility] [id number] Yg William 06/15/2015 06/16/2015 [facility] [id number] Amanda Mejía 08/22/2015 08/22/2015 [facility] [id number] Anibal Jain 09/03/2015 09/03/2015 [facility] [id number] Clayton Nevarez 09/13/2015 09/13/2015 [facility] Emergency [id number] Tammi Adan 03/12/2016 03/12/2016 [facility] Emergency [id number] Dionne Olade 07/19/2016 07/19/2016 [facility] Observation [id number] Luke Ashley Minor 06/08/2017 06/08/2017 [facility] Procedures Procedure Code Date Perfomer Comments Source Laminectomy <sup>1</sup> 6883286713 1L3-5 [facility] Tonsillectomy [id number] [facility] Laminectomy<sup>1</sup> 761021358 L3-5 [facility] Tonsillectomy [id number] [facility] Laminectomy<sup>1</sup> 687916168 L3-5 [facility] Tonsillectomy [id number] [facility] Laminectomy<sup>1</sup> 309557550 L3-[address] [facility] Tonsillectomy [id number] [facility] Laminectomy<sup>1</sup> 576989887 L3-5 [facility] Tonsillectomy [id number] [facility] [place]
--- OUTSIDE RECORDS SUMMARY | 2018-06-17 06:44 | XMS REPORT | Summary of Care ---
Author Author [facility] Organization [facility] Address Unknown Phone Unavailable Encounter JAMESON Harden(BERNARD) [id number] Date(s): 11/28/14 - 11/28/14 [facility] [address] [place] [address]- Discharge Diagnosis: Allergic reaction caused by a drug Discharge Disposition: Home Attending Physician: Tammi Adan MD Vital Signs 1 2 3 Most recent to oldest [Reference Range]: 193.04 cm (11/28/14 2:57 PM) Height 1 2 3 Most recent to oldest [Reference Range]: 97.6 DegF (11/28/14 4:34 PM) 97.4 DegF (11/28/14 4:26 PM) 97.5 DegF (11/28/14 2:57 PM) Temperature Oral [96.4-99.1 DegF] 1 2 3 Most recent to oldest [Reference Range]: 118/80 mmHg (11/28/14 4:34 PM) 125/80 mmHg (11/28/14 4:26 PM) 157/89 mmHg *HI* (11/28/14 2:57 PM) Blood Pressure [90-140/60-90 mmHg] 1 2 3 Most recent to oldest [Reference Range]: 18 BRMIN (11/28/14 4:34 PM) 20 BRMIN (11/28/14 4:26 PM) 18 BRMIN (11/28/14 2:57 PM) Respiratory Rate [14-20 BRMIN] 1 2 3 Most recent to oldest [Reference Range]: 65 bpm (11/28/14 4:34 PM) 60 bpm (11/28/14 4:26 PM) 70 bpm (11/28/14 2:57 PM) Peripheral Pulse Rate [60-100 bpm] 1 2 3 Most recent to oldest [Reference Range]: 122.727 kg (11/28/14 2:57 PM) Weight 1 2 3 Most recent to oldest [Reference Range]: 32.93 m2 (11/28/14 2:57 PM) Body Mass Index Problem List Condition Effective Dates Status Health Status Informant Abdominal Active pain(Confirmed) Anxiety(Confirmed) Resolved Chest Active pain(Confirmed) Chronic back Resolved pain(Confirmed) Hyperlipidemia(Confi Active rmed) Hypertension(Confirm Active ed) Lesion(Confirmed)1 Resolved PUD - Peptic ulcer Active disease(Confirmed) 1biopsy R jaidene. Allergies, Adverse Reactions, Alerts Substance Reaction Severity Status amoxicillin Active Medications Benadryl 50 mg, Route: IVP, ONCE, Dosing Weight 118.182, kg, Start date: 11/28/14 15:00:0 0, Stop date: 11/28/14 15:00:00 Start Date: 11/28/14 Stop Date: 11/28/14 Status: Completed EpiPen Auto-Injector 0.3 mg injectable kit 0.3 mg, IM, ONCE, # 1 kit, 0 Refill(s) Start Date: 11/28/14 Status: Ordered hydrOXYzine hydrochloride 25 mg oral tablet 25 mg=1 tab, PO, QID, PRN Itching, # 40 tab, 0 Refill(s) Start Date: 11/28/14 Stop Date: 12/02/14 Status: Ordered Pepcid 20 mg, Route: IVP, ONCE, Dosing Weight 118.182, kg, Start date: 11/28/14 15:01:0 0, Stop date: 11/28/14 15:01:00 Start Date: 11/28/14 Stop Date: 11/28/14 Status: Completed Pepcid 20 mg oral tablet 20 mg=1 tab, PO, BID, # 8 tab, 0 Refill(s) Start Date: 11/28/14 Stop Date: 12/02/14 Status: Ordered predniSONE 60 mg, Route: PO, ONCE, Dosing Weight 118.182, kg, Priority: STAT, Start date: 0 11/28/14 15:01:00, Stop date: 11/28/14 15:01:00 Start Date: 11/28/14 Stop Date: 11/28/14 Status: Completed predniSONE 20 mg oral tablet 60 mg=3 tab, PO, Daily, X 3 day, # 9 tab, 0 Refill(s) Start Date: 11/28/14 Stop Date: 12/01/14 Status: Ordered Sodium Chloride 0.9% (Bolus) IV 1,000 mL, 1,000 ml/hr, Infuse Over: 1 hr, Route: IV, ONCE, Priority: STAT, Dosin g Weight 118.182 kg, Start date: 11/28/14 14:59:00, Duration: 1 doses or times, Stop date: 11/28/14 14:59:00 Start Date: 11/28/14 Stop Date: 11/28/14 Status: Completed Results No data available for this section Immunizations No data available for this section Procedures Procedure Date Related Diagnosis Body Site Laminectomy1 Tonsillectomy 1L3-5 Social History Social History Type Response Smoking Status Never smoker; Previous treatment: None; Ready to change: No; Concerns about tobacco use in household: No; Exposure to Tobacco Smoke None; Cigarette Smoking Last 365 Days No; Reg Smoking Cessation Counseling No Assessment and Plan No data available for this section
--- OUTSIDE RECORDS SUMMARY | 2018-06-17 06:44 | XMS REPORT | Summary of Care ---
Author Organization Unknown Address Unknown Phone Unavailable Encounter JAMESON Harden(BERNARD) [id number] Date(s): 01/10/14 - 01/10/14 [facility] [address] Discharge Diagnosis: Anxiety Discharge Disposition: Home Physician Attending: Sanjeev Martinez MD Reason for Visit PANIC ATTACK Vital Signs Most recent to 1 oldest [Reference Range]: Height 193.04 cm (01/10/14 10:55 AM) Temperature Oral 99 DegF [96.4-99.1 DegF] (01/10/14 10:55 AM) Systolic Blood 144 mmHg Pressure [90-140 *HI* mmHg] (01/10/14 10:55 AM) Diastolic Blood 85 mmHg Pressure [60-90 (01/10/14 10:55 AM) mmHg] Respiratory Rate 18 BRMIN [14-20 BRMIN] (01/10/14 10:55 AM) Peripheral Pulse 61 bpm Rate [60-100 bpm] (01/10/14 10:55 AM) Weight 122.727 kg (01/10/14 10:55 AM) Body Mass Index 32.93 m2 (01/10/14 10:55 AM) Problem List Condition Effective Dates Status Health Status Informant Abdominal Active pain(Confirmed) Anxiety(Confirmed) Resolved Chest Active pain(Confirmed) Chronic back Resolved pain(Confirmed) Hyperlipidemia(Confi Active rmed) Hypertension(Confirm Active ed) Lesion(Confirmed)1 Resolved PUD - Peptic ulcer Active disease(Confirmed) 1biopsy R jaidene. Allergies, Adverse Reactions, Alerts Substance Reaction Severity Status NKDA Active Medications No data available for this section Medications Administered During Your Visit No data available for this section Immunizations No data available for this section Social History Social History Type Response Smoking Status Never smoker, Previous treatment: None, Ready to change: No, Concerns about tobacco use in household: No, Exposure to Tobacco Smoke None, Cigarette Smoking Last 365 Days No, Reg Smoking Cessation Counseling No
--- OUTSIDE RECORDS SUMMARY | 2018-06-17 06:44 | XMS REPORT | Summary of Care ---
Author Organization Unknown Address Unknown Phone Unavailable Encounter Dates Location Diagnoses Discharge Providers Disposition 08/01/2013 [facility] Discharge Home Carroll[facility] javed [facility] Diagnosis: 08/01/2013 [id number] [place] Abdominal Pain [address] Reason for Visit FLU SYMPTOMS Vital Signs Most recent to 1 2 oldest [Reference Range]: Height 193.04 cm (08/01/2013 06:39:00 [facility]/Leonard) Temperature Oral 97.7 DegF 97.7 DegF [96.4-99.1 DegF] ([facility]01[facility]2013 [facility] ([facility]:39[facility] Systolic Blood 146 mmHg 144 mmHg Pressure [90-140 *HI* *HI* mmHg] (08/01/2013 09:08:00 [facility]) (08/01/2013 [facility]39:[facility] Diastolic Blood 81 mmHg 90 mmHg Pressure [60-90 (08/01/2013 09:08:00 [facility]) (08/01/2013 06:39:00 [facility]/Leonard) mmHg] Respiratory Rate 16 BRMIN 18 BRMIN [14-20 BRMIN] (08/01/2013 09:08:00 [facility]) (08/01/2013 06:39:00 [facility]) Peripheral Pulse 57 bpm 84 bpm Rate [60-100 bpm] *LOW* (08/01/2013 06:39:00 [facility]ard) (08/01/2013 09:08:00 [facility]) Weight 122.727 kg (08/01/2013 06:39:00 I[facility]ne/[facility]ard) Body Mass Index 32.93 m2 (08/01/2013 06:39:00 I[facility]ne/Leonard) Problem List Condition Effective Dates Status Health Status Informant Abdominal Active pain(Confirmed) Anxiety(Confirmed) Resolved Chest Active pain(Confirmed) Chronic back Resolved pain(Confirmed) Hyperlipidemia(Confi Active rmed) Hypertension(Confirm Active ed) Lesion(Confirmed)1 Resolved PUD - Peptic ulcer Active disease(Confirmed) 1biopsy R nare. Allergies, Adverse Reactions, Alerts Status Substance Reaction Severity Active NKDA Medications Medication Instructions Start Date Stop Date Status ondansetron 4 mg, Route: IVP, ONCE, Dosing 08/01/2013 08/01/2013 Completed Weight 122.727, kg, Priority: STAT, Start date: 08/01/13 7:29:00, Stop date: 08/01/13 7:29:00 pantoprazole 40 mg, Route: IVP, ONCE, Dosing 08/01/2013 08/01/2013 Completed Weight 122.727, kg, For IV push reconstitute with 10 ml 0.9% sodium chloride and push over at least 3 minutes, Priority: STAT, Start date: 08/01/13 7:29:00, Stop date: 08/01/13 7:29:00 promethazine 25 mg, Route: IVPB, ONCE, Dosing 08/01/2013 08/01/2013 Completed Weight 122.727, kg, Priority: STAT, Start date: 08/01/13 8:58:00, Stop date: 08/01/13 8:58:00 Restoril 30 mg oral 30 mg=1 cap, PO, Bedtime, Sleep, # 08/01/2013 Ordered capsule 10 cap, 0 Refill(s) Saline Flush 0.9% 5 mL, Route: IVP, Drug Form: INJ, 08/01/2013 08/01/2013 Discontinued Dosing Weight 122.727, kg, PRN, PRN Line Flush, Start date: 08/01/13 7:29:00, Duration: 24 hr, Stop date: 08/02/13 7:28:00 Same as: BD Posiflush Sterile Sodium Chloride 0.9% 1,000 mL, Rate: 1,000 ml/hr, Infuse 08/01/2013 08/01/2013 Completed (Bolus) IV 1000 mL over: 1 hr, Route: IV, Dosing Weight 122.727 kg, Total Volume: 1,000, Priority: STAT, Start date: 08/01/13 7:29:00, Duration: 1 doses or times, Stop date: 08/01/13 8:28:00 Results ELECTROLYTES Most recent to 1 oldest [Reference Range]: Sodium Lvl [135-145 142 mEq/L mEq/L] (08/01/2013 07:40:00 [facility]) Potassium Lvl 4.1 mEq/L [3.5-5.1 mEq/L] (08/01/2013 07:40:00 [facility]) Chloride Lvl [95-109 106 mEq/L mEq/L] (08/01/2013 07:40:00 [facility]) CO2 [24-32 mEq/L] 31 mEq/L (08/01/2013 07:40:00 [facility]) AGAP [10.0-20.0 9.1 mEq/L mEq/L] *LOW* (08/01/2013 07:40:00 [facility]) CHEM PANEL Most recent to 1 oldest [Reference Range]: Creatinine Lvl 1.0 mg/dL [0.5-1.4 mg/dL] (08/01/2013 07:40:00 [facility]) eGFR 87 mL/min/1.73m2 1 *NA* (08/01/2013 07:40:00 [facility]) BUN [7-22 mg/dL] 16 mg/dL (08/01/2013 07:40:00 [facility]) B/C Ratio [6-25] 16 (08/01/2013 07:40:00 [facility]) Glucose Lvl [70-99 99 mg/dL 2 mg/dL] (08/01/2013 07:40:00 [facility]) Total Protein 7.8 g/dL [6.4-8.4 g/dL] (08/01/2013 07:40:00 [facility]) Albumin Lvl [3.5-5.0 4.1 g/dL g/dL] (08/01/2013 07:40:00 [facility]) Globulin [2.0-4.0 3.7 g/dL g/dL] (08/01/2013 07:40:00 [facility]) A/G Ratio [0.7-1.6] 1.1 (08/01/2013 07:40:00 [facility]) Calcium Lvl 8.9 mg/dL [8.5-10.5 mg/dL] (08/01/2013 07:40:00 [facility]) ALT [0-65 unit/L] 41 unit/L (08[facility]01/2013 [facility]:40[facility] AST [0-37 unit/L] 18 unit/L (08/01/2013 07:40:00 [facility]) Alk Phos [39-136 85 unit/L unit/L] (08/01/2013 07:40:00 [facility]) Bili Total [0.2-1.3 0.5 mg/dL mg/dL] (08/01/2013 07:40:00 [facility]) Amylase Lvl [25-115 49 unit/L unit/L] (08/01/2013 07:40:00 [facility]) Lipase Lvl [73-393 160 unit/L unit/L] (08/01/2013 07:40:00 [facility]) 1Result Comment: The eGFR is calculated using [...] from the National Kidney Disease Education Program ( NKDEP) which additionally recommends that when the eGFR is used in patients with extremes of body mass index for purposes of drug dosing, the eGFR should be mul tiplied by the estimated BMI. 2Interpretive Data: Adult reference range values reflect the clinical guidelines of the [place] [employer]. URINE AND STOOL Most recent to 1 oldest [Reference Range]: UA Turbidity [Clear] Clear (08/01/2013 07:40:00 [facility]) UA Color [Yellow] Yellow *NA* (08/01/2013:40:00 [facility]) UA pH [5.0-8.0] 6.0 (08/01/2013:40:00 [facility]) UA Spec Grav <=1.005 [<=1.030] *NA* (08/01/2013 07:40:00 [facility]) UA Glucose Negative [Negative] (08/01/2013 07:40:00 [facility]) UA Blood [Negative] Negative (08/01/2013 07:40:00 [facility]) UA Ketones Negative [Negative] *NA* (08/01/2013 07:40:00 [facility]) UA Protein Negative [Negative] (08/01/2013 07:40:00 [facility]) UA Urobilinogen 0.2 EU/dL [0.1-1.0 EU/dL] (08/01/2013 07:40:00 [facility]) UA Bili [Negative] Negative *NA* (08/01/2013 07:40:00 [facility]) UA Leuk Est Negative [Negative] (08/01/2013 07:40:00 [facility]) UA Nitrite Negative [Negative] (08/01/2013 07:40:00 [facility]) UA Sq Epi [Few /LPF] Few /LPF (08/01/2013 07:40:00 [facility]) HEMATOLOGY Most recent to 1 oldest [Reference Range]: WBC [3.7-10.4 K/CMM] 7.9 K/CMM (08/01/2013 07:40:00 [facility]) RBC [4.70-6.10 4.96 M/CMM M/CMM] (08/01/2013 07:40:00 [facility]) Hgb [14.0-18.0 g/dL] 15.4 g/dL (08/01/2013 07:40:00 [facility]) Hct [42.0-54.0 %] 45.8 % (08/01/2013 07:40:00 [facility]) MCV [80.0-94.0 fL] 92.4 fL (08/01/2013 07:40:00 [facility]) MCH [27.0-31.0 pg] 31.0 pg (08/01/2013 07:40:00 [facility]) MCHC [32.0-36.0 33.6 g/dL g/dL] (08/01/2013 07:40:00 [facility]) RDW [11.5-14.5 %] 14.8 % *HI* (08/01/2013 07:40:00 [facility]) Platelet [133-450 289 K/CMM K/CMM] (08/01/2013 07:40:00 [facility]) MPV [7.4-10.4 fL] 8.3 fL (08/01/2013 07:40:00 [facility]) Segs [45.0-75.0 %] 70.1 % (08/01/2013 [facility]40[facility] Lymphocytes 16.7 % [20.0-40.0 %] *LOW* (08/01/2013 07:40:00 [facility]) Monocytes [2.0-12.0 8.8 % %] (08/01/2013 [facility]40[facility] Eosinophils [0.0-4.0 3.7 % %] (08/01/2013 07:40:00 [facility]) Basophils [0.0-1.0 0.7 % %] (08/01/2013 07:40[facility] Segs-Bands # 5.6 K/CMM [1.5-8.1 K/CMM] (08/01/2013 07:40:00 [facility]) Lymphocytes # 1.3 K/CMM [1.0-5.5 K/CMM] (08/01/2013 07:40:00 [facility]) Monocytes # [0.0-0.8 0.7 K/CMM K/CMM] (08/01/2013 07:40:00 [facility]) Eosinophils # 0.3 K/CMM [0.0-0.5 K/CMM] (08/01/2013 [facility]40[facility] Basophils # [0.0-0.2 0.1 K/CMM K/CMM] (08/01/2013 07:40:00 [facility]) Medications Administered During Your Visit No data available for this section Immunizations No data available for this section Social History Social History Type Response Smoking Status Use: Never smoker. Previous treatment: None. Ready to change: No. Household tobacco concerns: No. Tobacco smoke exposure: None. Did the Patient Smoke Cigarettes Anytime During the Last 365 Days? No. Cessation Counseling Provided? No.
--- OUTSIDE RECORDS SUMMARY | 2018-06-17 06:44 | XMS REPORT | Summary of Care ---
Author Organization Unknown Address Unknown Phone Unavailable Encounter Dates Location Diagnoses Discharge Providers Disposition 07/22/2013 [facility] Discharge Home CarrollBob javed [facility] Diagnosis: 07/22/2013 [id number] [place] headache [address] Discharge Diagnosis: constipation Discharge Diagnosis: vomiting Reason for Visit BODY ACHE/FEVER Vital Signs 1 2 3 Most recent to oldest [Reference Range]: 193.04 cm (07/22/2013 17:00:00 [facility]/[place]) Height 98.3 DegF (07/22/2013 17:00:00 [facility]/[place]) Temperature Oral [96.4-99.1 DegF] 129 mmHg (07/22/2013 19:15:00 [facility]/[place]) 139 mmHg (07/22/2013 18:25:00 [facility]/[place]) 146 mmHg *HI* (07/22/2013 17:00:00 [facility]/[place]) Systolic Blood Pressure [90-140 mmHg] 75 mmHg (07/22/2013 19:15:00 [facility]/[place]) 80 mmHg (07/22/2013 18:25:00 [facility]/[place]) 89 mmHg (07/22/2013 17:00:00 [facility]/[place]) Diastolic Blood Pressure [60-90 mmHg] 20 BRMIN (07/22/2013 19:15:00 [facility]/[place]) 18 BRMIN (07/22/2013 18:25:00 [facility]/[place]) 20 BRMIN (07/22/2013 17:00:00 [facility]/[place]) Respiratory Rate [14-20 BRMIN] 79 bpm (07/22/2013 19:15:00 [facility]/[place]) 78 bpm (07/22/2013 18:25:00 [facility]/[place]) 80 bpm (07/22/2013 17:00:00 [facility]/[place]) Peripheral Pulse Rate [60-100 bpm] 122.727 kg (07/22/2013 17:00:00 [facility]/[place]) Weight 32.93 m2 (07/22/2013 17:00:00 [facility]) Body Mass Index Problem List Condition Effective Dates Status Health Status Informant Abdominal Active pain(Confirmed) Anxiety(Confirmed) Resolved Chest Active pain(Confirmed) Chronic back Resolved pain(Confirmed) Hyperlipidemia(Confi Active rmed) Hypertension(Confirm Active ed) Lesion(Confirmed)1 Resolved PUD - Peptic ulcer Active disease(Confirmed) 1biopsy R nare. Allergies, Adverse Reactions, Alerts Status Substance Reaction Severity Active NKDA Medications Medication Instructions Start Date Stop Date Status Ativan 1 mg, Route: IVP, Drug form: INJ, 07/22/2013 07/22/2013 Completed ONCE, Dosing Weight 122.727, kg, Priority: STAT, Start date: 07/22/13 18:38:00, Stop date: 07/22/13 18:38:00 GoLYTELY oral powder 240 ml, PO, Q10Min, # 1 ea, 0 07/22/2013 Ordered for reconstitution Refill(s) morphine Sulfate 4 mg, 2 mL, Route: IVP, Drug form: 07/22/2013 07/22/2013 Completed INJ, ONCE, Dosing Weight 122.727, kg, Priority: STAT, Start date: 07/22/13 17:24:00, Stop date: 07/22/13 17:24:00 (Same as:MORPhine Sulfate) NS (Bolus) IV 1,000 1,000 mL, Rate: 1,000 ml/hr, Infuse 07/22/2013 07/22/2013 Completed mL over: 1 hr, Route: IV, Dosing Weight 122.727 kg, Total Volume: 1,000, Priority: STAT, Start date: 07/22/13 17:33:00, Duration: 1 doses or times, Stop date: 07/22/13 18:32:00, Bolus Dose Bolus Dose ondansetron 4 mg, 2 mL, Route: IVP, Drug form: 07/22/2013 07/22/2013 Completed INJ, ONCE, Dosing Weight 122.727, kg, Priority: STAT, Start date: 07/22/13 17:25:00, Stop date: 07/22/13 17:25:00 (Same as: Zofran) ondansetron 4 mg 4 mg=1 tab, PO, BID, # 10 tab, 0 07/22/2013 Ordered oral tablet Refill(s) Saline Flush 0.9% 5 mL, Route: IVP, Drug Form: INJ, 07/22/2013 07/23/2013 Discontinued Dosing Weight 122.727, kg, PRN, PRN Line Flush, Start date: 07/22/13 17:20:00, Duration: 24 hr, Stop date: 07/23/13 17:19:00 Same as: BD Posiflush Sterile Results ELECTROLYTES Most recent to 1 oldest [Reference Range]: Sodium Lvl [135-145 139 mEq/L mEq/L] (07/22/2013 17:00:00 [facility]) Potassium Lvl 3.7 mEq/L [3.5-5.1 mEq/L] (07/22/2013 17:00:00 [facility]) Chloride Lvl [95-109 104 mEq/L mEq/L] (07/22/2013 17:00:00 [facility]) CO2 [24-32 mEq/L] 31 mEq/L (07/22/2013 17:00:00 [facility]) AGAP [10.0-20.0 7.7 mEq/L mEq/L] *LOW* (07/22/2013 17:00:00 [facility]) CHEM PANEL Most recent to 1 oldest [Reference Range]: Creatinine Lvl 1.2 mg/dL [0.5-1.4 mg/dL] (07/22/2013 17:00:00 [facility]) eGFR 72 mL/min/1.73m2 1 *NA* (07/22/2013 17:00:00 [facility]) BUN [7-22 mg/dL] 13 mg/dL (07/22/2013 17:00:00 [facility]) B/C Ratio [6-25] 11 (07/22/2013 17:00:00 [facility]) Glucose Lvl [70-99 69 mg/dL 2 mg/dL] *LOW* (07/22/2013 17:00:00 [facility]) Total Protein 7.8 g/dL [6.4-8.4 g/dL] (07/22/2013 17:00:00 [facility]) Albumin Lvl [3.5-5.0 4.5 g/dL g/dL] (07/22/2013 17:00:00 [facility]) Globulin [2.0-4.0 3.3 g/dL g/dL] (07/22/2013 17:00:00 [facility]) A/G Ratio [0.7-1.6] 1.4 (07/22/2013 17:00:00 [facility]) Calcium Lvl 9.3 mg/dL [8.5-10.5 mg/dL] (07/22/2013 17:00:00 [facility]) ALT [0-65 unit/L] 38 unit/L (07/22/2013 17:00:00 [facility]) AST [0-37 unit/L] 21 unit/L (07/22/2013 17:00:00 [facility]) Alk Phos [39-136 87 unit/L unit/L] (07/22/2013 17:00:00 [facility]) Bili Total [0.2-1.3 0.4 mg/dL mg/dL] (07/22/2013 17:00:00 [facility]) Lipase Lvl [73-393 168 unit/L unit/L] (07/22/2013 17:00:00 [facility]) 1Result Comment: The eGFR is [...] values reflect the clinical guidelines of the [place] [employer]. URINE AND STOOL Most recent to 1 oldest [Reference Range]: UA Turbidity [Clear] Clear (07/22/2013 [facility]:00[facility] Color [Yellow] Yellow *NA* (07/22/2013 18:00:59 [facility]) UA pH [5.0-8.0] 5.5 (07/22/2013 18:00:59 [facility]/[place]) UA Spec Grav <=1.005 [<=1.030] *NA* (07/22/2013 18:00:59 [facility]/[place]) UA Glucose Negative [Negative] (07/22/2013 18:00:59 [facility]) UA Blood [Negative] Negative (07/22/2013 18:00:59 [facility]) UA Ketones Negative [Negative] *NA* (07/22/2013 18:00:59 [facility]) UA Protein Negative [Negative] (07/22/2013 18:00:59 [facility]) UA Urobilinogen 0.2 EU/dL [0.1-1.0 EU/dL] (07/22/2013 18:00:59 [facility]) UA Bili [Negative] Negative *NA* (07/22/2013 [facility]:00[facility] UA Leuk Est Negative [Negative] (07/22/2013 18:00:59 [facility]) UA Nitrite Negative [Negative] (07/22/2013 18:00:59 [facility]) UA WBC [None Seen] None Seen (07/22/2013 18:00:59 [facility]) UA RBC [0-2] None Seen (07/22/2013 18:00:59 [facility]) UA Bacteria [None None Seen Seen] (07/22/2013 18:00:59 [facility]) UA Sq Epi [Few] None Seen (07/22/2013 18:00:59 [facility]) Micro? Performed (07/22/2013 18:00:59 [facility]) HEMATOLOGY Most recent to 1 oldest [Reference Range]: WBC [3.7-10.4 K/CMM] 9.9 K/CMM (07/22/2013 [facility]:00[facility] RBC [4.70-6.10 4.81 M/CMM M/CMM] (07/22/2013 17:00:00 [facility]) Hgb [14.0-18.0 g/dL] 15.1 g/dL (07/22/2013 [facility] Hct [42.0-54.0 %] 44.3 % (07/22/2013 17:00:00 [facility]) MCV [80.0-94.0 fL] 92.0 fL (07/22/2013 17:00:00 [facility]) MCH [27.0-31.0 pg] 31.3 pg *HI* (07/22/2013 17:00:00 [facility]) MCHC [32.0-36.0 34.1 g/dL g/dL] (07/22/2013 17:00:00 [facility]) RDW [11.5-14.5 %] 14.4 % (07/22/2013 17:00:00 [facility]) Platelet [133-450 323 K/CMM K/CMM] (07/22/2013 17:00:00 [facility]) MPV [7.4-10.4 fL] 8.5 fL (07/22/2013 17:00:00 [facility]) Segs [45.0-75.0 %] 62.2 % (07/22/2013 17:00:00 [facility]) Lymphocytes 24.4 % [20.0-40.0 %] (07/22/2013 17:00:00 [facility]) Monocytes [2.0-12.0 9.1 % %] (07/22/2013 17:00:00 [facility]) Eosinophils [0.0-4.0 3.1 % %] (07/22/2013 17:00:00 [facility]) Basophils [0.0-1.0 1.2 % %] *HI* (07/22/2013 17:00:00 [facility]) Segs-Bands # 6.2 K/CMM [1.5-8.1 K/CMM] (07/22/2013 17:00:00 [facility]) Lymphocytes # 2.4 K/CMM [1.0-5.5 K/CMM] (07/22/2013 17:00:00 [facility]) Monocytes # [0.0-0.8 0.9 K/CMM K/CMM] *HI* (07/22/2013 17:00:00 [facility]) Eosinophils # 0.3 K/CMM [0.0-0.5 K/CMM] (07/22/2013 17:00:00 [facility]) Basophils # [0.0-0.2 0.1 K/CMM K/CMM] (07/22/2013 17:00:00 [facility]) PT [12.0-14.7 13.3 seconds seconds] (07/22/2013 17:00:00 [facility]) INR [0.85-1.17] 1.02 3 (07/22/2013 17:00:00 [facility]) PTT [22.9-35.8 26.7 seconds 4 seconds] (07/22/2013 17:00:00 [facility]) 3Interpretive Data: RECOMMENDED RANGES FOR PROTIME INR: 2.0-3.0 for most medical and surgical thromboembolic states. 2.5-3.5 for artificial heart valves and recurrent embolism. INR SHOULD BE USED ONLY FOR PATIENTS ON STABLE ANTICOAGULANT THERAPY. 4Interpretive Data: Heparin Therapeutic Range: 57 - 92 Seconds Medications Administered During Your Visit No data [...]
--- OUTSIDE RECORDS SUMMARY | 2018-06-17 06:44 | XMS REPORT | CCD ---
Author Author Auto Generated Organization [facility] Address Unknown Phone Unavailable Care Team Providers Care Yard Clerk Name Role Phone Christopher Terrell CP Allergies, Adverse Reactions, Alerts Substance Reaction Status NKDA Active Problem List Condition Effective Dates Status Abdominal pain Active Anxiety Resolved Chest pain Active Chronic back pain Resolved Hyperlipidemia Active Hypertension Active Lesion1 Resolved PUD - Peptic ulcer disease Active 1biopsy R jaidene. Medications Medication Instructions Start Date End Date Status Ativan 1 mg, Route: IV, ONCE, Dosing 12/04/2012 12/04/2012 Completed Weight 122.727, kg, Start date: 12/04/12 10:23:00, Stop date: 12/04/12 10:23:00 Saline Flush 0.9% 5 mL, Route: IVP, Drug Form: INJ, 12/04/2012 12/04/2012 Discontinued Dosing Weight 122.727, kg, Q8H, PRN Line Flush, Start date: 12/04/12 10:22:00, Duration: 30 day, Stop date: 01/03/13 10:21:00, Administer at least once every 8 hours Administer at least once every 8 hours Vital Signs Most recent to oldest [Reference Range]: 1 Height 193.04 cm (12/04/2012 10:03:00) Weight 122.727 kg (12/04/2012 10:03:00) Results CHEMISTRY Most recent to oldest [Reference Range]: 1 Sodium Lvl [135-145 mEq/L] 144 mEq/L (12/04/2012 10:30:00) Potassium Lvl [3.5-5.1 mEq/L] 4.1 mEq/L (12/04/2012 10:30:00) Chloride Lvl [95-109 mEq/L] 108 mEq/L (12/04/2012 10:30:00) CO2 [24-32 mEq/L] 27 mEq/L (12/04/2012 10:30:00) AGAP [10.0-20.0 mEq/L] 13.1 mEq/L (12/04/2012 10:30:00) Creatinine Lvl [0.5-1.4 mg/dL] 1.3 mg/dL (12/04/2012 10:30:00) eGFR 67 mL/min/1.73m2 1 *NA* (12/04/2012 10:30:00) BUN [7-22 mg/dL] 13 mg/dL (12/04/2012 10:30:00) B/C Ratio [6-25] 10 (12/04/2012 10:30:00) Glucose Lvl [70-99 mg/dL] 92 mg/dL 2 (12/04/2012 10:30:00) Total Protein [6.4-8.4 g/dL] 7.6 g/dL (12/04/2012 10:30:00) Albumin Lvl [3.5-5.0 g/dL] 3.9 g/dL (12/04/2012 10:30:00) Globulin [2.0-4.0 g/dL] 3.7 g/dL (12/04/2012 10:30:00) A/G Ratio [0.7-1.6] 1.1 (12/04/2012 10:30:00) Calcium Lvl [8.5-10.5 mg/dL] 8.8 mg/dL (12/04/2012 10:30:00) ALT [0-65 unit/L] 40 unit/L (12/04/2012 10:30:00) AST [0-37 unit/L] 16 unit/L (12/04/2012 10:30:00) Alk Phos [39-136 unit/L] 97 unit/L (12/04/2012 10:30:00) Bili Total [0.2-1.3 mg/dL] 0.3 mg/dL (12/04/2012 10:30:00) Total CK [12-191 unit/L] 96 unit/L (12/04/2012 10:30:00) CK MB [0.5-3.6 ng/mL] <0.5 ng/mL (12/04/2012 10:30:00) CK MB Index [0.0-2.5] <0.5 (12/04/2012 10:30:00) Troponin-I [0.00-0.40 ng/mL] <0.02 ng/mL (12/04/2012 10:30:00) U Amph Scr [Negative] Negative *NA* (12/04/2012 10:30:00) U Sweta Scr [Negative] Negative *NA* (12/04/2012 10:30:00) U Benzodia Scr [Negative] Negative *NA* (12/04/2012 10:30:00) U Cocaine Scr [Negative] Negative *NA* (12/04/2012 10:30:00) U Opiate Scr [Negative] Negative *NA* (12/04/2012 10:30:00) U Phencyc Scr [Negative] Negative *NA* (12/04/2012 10:30:00) U Cannab Scr [Negative] Negative *NA* (12/04/2012 10:30:00) UDS Note See Note 3 *NA* (12/04/2012 10:30:00) 1Result Comment: The eGFR is calculated using [...] values reflect the clinical guidelines of the [place] [employer]. 3Interpretive Data: Drugs reported as positive have [...] Methadone 300 ng/mL Urine alcohol 20 mg/dL HEMATOLOGY Most recent to oldest [Reference Range]: 1 WBC [3.7-10.4 K/CMM] 8.2 K/CMM (12/04/2012 10:30:00) RBC [4.70-6.10 M/CMM] 4.80 M/CMM (12/04/2012 10:30:00) Hgb [14.0-18.0 g/dL] 14.7 g/dL (12/04/2012:30:00) Hct [42.0-54.0 %] 44.3 % (12/04/2012 10:30:00) MCV [80.0-94.0 fL] 92.4 fL (12/04/2012 10:30:00) MCH [27.0-31.0 pg] 30.7 pg (12/04/2012:30:00) MCHC [32.0-36.0 g/dL] 33.3 g/dL (12/04/2012 10:30:00) RDW [11.5-14.5 %] 13.8 % (12/04/2012 10:30:00) Platelet [133-450 K/CMM] 306 K/CMM (12/04/2012 10:30:00) MPV [7.4-10.4 fL] 8.4 fL (12/04/2012:30:00) Segs [45.0-75.0 %] 58.9 % (12/04/2012:30:00) Lymphocytes [20.0-40.0 %] 27.1 % (12/04/2012:30:00) Monocytes [2.0-12.0 %] 8.4 % (12/04/2012 10:30:00) Eosinophils [0.0-4.0 %] 5.0 % *HI* (12/04/2012 10:30:00) Basophils [0.0-1.0 %] 0.6 % (12/04/2012 10:30:00) Segs-Bands # [1.5-8.1 K/CMM] 4.8 K/CMM (12/04/2012 10:30:00) Lymphocytes # [1.0-5.5 K/CMM] 2.2 K/CMM (12/04/2012 10:30:00) Monocytes # [0.0-0.8 K/CMM] 0.7 K/CMM (12/04/2012 10:30:00) Eosinophils # [0.0-0.5 K/CMM] 0.4 K/CMM (12/04/2012 10:30:00) Basophils # [0.0-0.2 K/CMM] 0.0 K/CMM (12/04/2012 10:30:00) D-Dimer 0.22 ug/mL FEU 4 *NA* (12/04/2012 10:30:00) 4Interpretive Data: In DIC, quantitative D-Dimer is generally greater than 0.66 ug/mL FEU. Values of quantitative D-Dimer less than 0.40 ug/mL FEU have been reported to be associated with a low probability of deep vein thrombosis/pulmonary embolism. This test alone should not be used to rule out DVT/PE.
--- OUTSIDE RECORDS SUMMARY | 2018-06-17 06:44 | XMS REPORT | Summary of Care ---
Author Organization Unknown Address Unknown Phone Unavailable Encounter JAMESON Harden(BERNARD) [id number] Date(s): 01/10/14 - 01/10/[address] [facility] [address] [address] Discharge Disposition: Home Physician Attending: Clayton Wright MD Reason for Visit CHEST PAIN/PANIC ATTACK Vital Signs Most recent to 1 oldest [Reference Range]: Height 193.04 cm (01/10/14 9:14 AM) Temperature Oral 98.1 DegF [96.4-99.1 DegF] (01/10/14 9:14 AM) Systolic Blood 129 mmHg Pressure [90-140 (01/10/14 9:14 AM) mmHg] Diastolic Blood 80 mmHg Pressure [60-90 (01/10/14 9:14 AM) mmHg] Respiratory Rate 20 BRMIN [14-20 BRMIN] (01/10/14 9:14 AM) Peripheral Pulse 74 bpm Rate [60-100 bpm] (01/10/14 9:14 AM) Weight 122.727 kg (01/10/14 9:14 AM) Body Mass Index 32.93 m2 (01/10/14 9:14 AM) Problem List Condition Effective Dates Status Health Status Informant Abdominal Active pain(Confirmed) Anxiety(Confirmed) Resolved Chest Active pain(Confirmed) Chronic back Resolved pain(Confirmed) Hyperlipidemia(Confi Active rmed) Hypertension(Confirm Active ed) Lesion(Confirmed)1 Resolved PUD - Peptic ulcer Active disease(Confirmed) 1biopsy Misa cottrell. Allergies, Adverse Reactions, Alerts Substance Reaction Severity [...]
--- OUTSIDE RECORDS SUMMARY | 2018-06-17 06:44 | XMS REPORT | Summary of Care ---
Author Organization Unknown Address Unknown Phone Unavailable Encounter Dates Location Diagnoses Discharge Providers Disposition 07/20/2013 [facility] Discharge Home [facility] Diagnosis: 07/20/2013 [id number] [address] [place] Dehydration [address] Reason for Visit VOMITING Vital Signs 1 2 3 Most recent to oldest [Reference Range]: 193.04 cm (07/20/2013 07:01:00 [facility]) Height 97.3 DegF (07/20/2013 09:18:00 [facility]) 97.5 DegF (07/20/2013 07:01:00 [facility]) Temperature Oral [96.4-99.1 DegF] 119 mmHg (07/20/2013 09:18:00 [facility]) 122 mmHg (07/20/2013 08:39:00 [facility]) 147 mmHg *HI* (07/20/2013 07:01:00 [facility]) Systolic Blood Pressure [90-140 mmHg] 73 mmHg (07/20/2013 09:18:00 [facility]) 78 mmHg (07/20/2013 08:39:00 [facility]) 91 mmHg *HI* (07/20/2013 07:01:00 [facility]) Diastolic Blood Pressure [60-90 mmHg] 19 BRMIN (07/20/2013 09:18:00 [facility]) 18 BRMIN (07/20/2013 08:39:00 [facility]) 18 BRMIN (07/20/2013 07:01:00 [facility]) Respiratory Rate [14-20 BRMIN] 64 bpm (07/20/2013 09:18:00 [facility]) 61 bpm (07/20/2013 08:39:00 [facility]) 66 bpm (07/20/2013 07:01:00 [facility]) Peripheral Pulse Rate [60-100 bpm] 126.932 kg (07/20/2013 07:01:00 [facility]) Weight 34.06 m2 (07/20/2013 07:01:00 [facility]) Body Mass Index Problem List Condition Effective Dates Status Health Status Informant Abdominal Active pain(Confirmed) Anxiety(Confirmed) Resolved Chest Active pain(Confirmed) Chronic back Resolved pain(Confirmed) Hyperlipidemia(Confi Active rmed) Hypertension(Confirm Active ed) Lesion(Confirmed)1 Resolved PUD - Peptic ulcer Active disease(Confirmed) 1biopsy R nare. Allergies, Adverse Reactions, Alerts Status Substance Reaction Severity Active NKDA Medications Medication Instructions Start Date Stop Date Status ketorolac 30 mg/mL 30 mg, Route: IV, ONCE, Dosing 07/20/2013 07/20/2013 Completed injectable solution Weight 126.932, kg, Start date: 07/20/13 7:26:00, Stop date: 07/20/13 7:26:00 normal saline 0.9% 1,000 mL, Rate: Bolus, Route: IV, 07/20/2013 07/20/2013 Completed IV 1,000 mL Dosing Weight 126.932 kg, Total Volume: 1,000, Start date: 07/20/13 8:36:00, Duration: 1 hr, Stop date: 07/20/13 9:35:00 normal saline 0.9% 1,000 mL, Rate: 100 ml/hr, Infuse 07/20/2013 07/20/2013 Discontinued IV 1,000 mL over: 10 hr, Route: IV, Dosing Weight 126.932 kg, Total Volume: 1,000, Start date: 07/20/13 7:25:00, Duration: 30 day, Stop date: 08/19/13 7:24:00 Phenergan 25 mg, 1 mL, Route: IM, Drug form: 07/20/2013 07/20/2013 Completed INJ, ONCE, Dosing Weight 126.932, kg, Priority: STAT, Start date: 07/20/13 8:26:00, Stop date: 07/20/13 8:26:00 Do not give IV push. (Same as: Phenergan) Phenergan 25 mg oral 25 mg=1 tab, PO, Q6H, Nausea, # 15 07/20/2013 Ordered tablet tab, 0 Refill(s) Zofran 8 mg, Route: IV, ONCE, Dosing 07/20/2013 07/20/2013 Completed Weight 126.932, kg, Start date: 07/20/13 7:27:00, Stop date: 07/20/13 7:27:00 Results ELECTROLYTES Most recent to 1 oldest [Reference Range]: Sodium Lvl [135-145 143 mEq/L mEq/L] (07/20/2013 07:35:00 [facility]) Potassium Lvl 3.9 mEq/L [3.5-5.1 mEq/L] (07/20/2013 07:35:00 [facility]) Chloride Lvl [95-109 108 mEq/L mEq/L] (07/20/2013 07:35:00 [facility]) CO2 [24-32 mEq/L] 28 mEq/L (07/20/2013 07:35:00 [facility]) AGAP [10.0-20.0 10.9 mEq/L mEq/L] (07/20/2013 07:35:00 [facility]) CHEM PANEL Most recent to 1 oldest [Reference Range]: Creatinine Lvl 0.9 mg/dL [0.5-1.4 mg/dL] (07/20/2013 07:35:00 [facility]) eGFR 104 mL/min/1.73m2 1 *NA* (07/20/2013 07:35:00 [facility]) BUN [7-22 mg/dL] 20 mg/dL (07/20/2013 07:35:00 [facility]) B/C Ratio [6-25] 22 (07/20/2013 07:35:00 [facility]) Glucose Lvl [70-99 96 mg/dL 2 mg/dL] (07/20/2013 07:35:00 [facility]) Total Protein 6.9 g/dL [6.4-8.4 g/dL] (07/20/2013 07:35:00 [facility]) Albumin Lvl [3.5-5.0 4.0 g/dL g/dL] (07/20/2013 07:35:00 [facility]) Globulin [2.0-4.0 2.9 g/dL g/dL] (07/20/2013 07:35:00 [facility]) A/G Ratio [0.7-1.6] 1.4 (07/20/2013 07:35:00 [facility]) Calcium Lvl 8.9 mg/dL [8.5-10.5 mg/dL] (07/20/2013 [facility] ALT [0-65 unit/L] 45 unit/L (07/20/2013:35:00 [facility]) AST [0-37 unit/L] 26 unit/L (07/20/2013:35:00 [facility]) Alk Phos [39-136 95 unit/L unit/L] (07/20/2013:35:00 [facility] Bili Total [0.2-1.3 0.4 mg/dL mg/dL] (07/20/2013:35:00 [facility] Lipase Lvl [73-393 157 unit/L unit/L] (07/20/2013:35:00 [facility] 1Result Comment: The eGFR is calculated using [...] values reflect the clinical guidelines of the [place] [employer]. CARDIAC ENZYMES Most recent to 1 oldest [Reference Range]: Total CK [12-191 606 unit/L unit/L] *HI* (07/20/2013:35:00 [facility] CK MB [0.5-3.6 4.3 ng/mL ng/mL] *HI* (07/20/2013:35:00 [facility]) CK MB Index 0.7 [0.0-2.5] (07/20/2013:35:00 [facility]) Troponin-I <0.02 ng/mL [0.00-0.40 ng/mL] (07/20/2013 07:35:00 [facility]) HEMATOLOGY Most recent to 1 oldest [Reference Range]: WBC [3.7-10.4 K/CMM] 7.3 K/CMM (07/20/2013 07:35:00 [facility]) RBC [4.70-6.10 4.74 M/CMM M/CMM] (07/20/2013 07:35:00 [facility]) Hgb [14.0-18.0 g/dL] 14.6 g/dL (07/20/2013 07:35:00 [facility]) Hct [42.0-54.0 %] 43.9 % (07/20/2013 07:35:00 [facility]) MCV [80.0-94.0 fL] 92.6 fL (07/20/2013 07:35:00 [facility]) MCH [27.0-31.0 pg] 30.7 pg (07/20/2013 07:35:00 [facility]) MCHC [32.0-36.0 33.2 g/dL g/dL] (07/20/2013 07:35:00 [facility]) RDW [11.5-14.5 %] 14.8 % *HI* (07/20/2013 07:35:00 [facility]) Platelet [133-450 282 K/CMM K/CMM] (07/20/2013 07:35:00 [facility]) MPV [7.4-10.4 fL] 8.0 fL (07/20/2013 07:35:00 [facility]) Segs [45.0-75.0 %] 59.9 % (07/20/2013:35:00 [facility]) Lymphocytes 24.3 % [20.0-40.0 %] (07/20/2013 07:35:00 [facility]) Monocytes [2.0-12.0 9.0 % %] (07/20/2013 07:35:00 [facility]) Eosinophils [0.0-4.0 6.0 % %] *HI* (07/20/2013 07:35:00 [facility]) Basophils [0.0-1.0 0.8 % %] (07/20/2013 07:35:00 [facility]) Segs-Bands # 4.4 K/CMM [1.5-8.1 K/CMM] (07/20/2013 07:35:00 [facility]) Lymphocytes # 1.8 K/CMM [1.0-5.5 K/CMM] (07/20/2013 07:35:00 [facility]) Monocytes # [0.0-0.8 0.7 K/CMM K/CMM] (07/20/2013 07:35:00 [facility]) Eosinophils # 0.4 K/CMM [0.0-0.5 K/CMM] (07/20/2013 07:35:00 [facility]) Basophils # [0.0-0.2 0.1 K/CMM K/CMM] (07/20/2013 07:35:00 [facility]) VIRAL - SEROLOGY Most recent to 1 oldest [Reference Range]: Influ A [Negative] Negative (07/20/2013 08:50:00 [facility]) Influ B [Negative] Negative 3 (07/20/2013 08:50:00 [facility]) 3Interpretive Data: Influenza A&B Antigen: Due to the low sensitivity of this test a negative result does not exclude influ kami virus infection. A diagnosis of influenza should be considered based on a p atient's clinical presentation and empiric antiviral treatment should be conside red, if indicated. If more conclusive testing is desired, follow-up confirmatory testing with either viral culture or PCR is warranted. Medications Administered During Your Visit No data [...]
--- OUTSIDE RECORDS SUMMARY | 2018-06-17 06:44 | XMS REPORT | CCD ---
Author Author Auto Generated Organization [facility] Address Unknown Phone Unavailable Care Team Providers Care Manager Investigations Name Role Phone Ministerio Mike CP Allergies, Adverse Reactions, Alerts Substance Reaction Status NKDA Active Problem List Condition Effective Dates Status Abdominal pain Active Chest pain Active Chronic back pain Resolved Hyperlipidemia Active Hypertension Active PUD - Peptic ulcer disease Active Medications Medication Instructions Start Date End Date Status methylPREDNISolone 125 mg, 2 mL, Route: IVP, Drug 10/09/2012 10/09/2012 Completed SODium SUCCinate form: INJ, ONCE, Dosing Weight 122.727, kg, Priority: STAT, Start date: 10/09/12 15:00:00, Stop date: 10/09/12 15:00:00 hydromorphone 1 mg, 1 mL, Route: IVP, Drug form: 10/09/2012 10/09/2012 Completed SOLN, ONCE, Dosing Weight 122.727, kg, Priority: STAT, Start date: 10/09/12 15:00:00, Stop date: 10/09/12 15:00:00 Medrol Dosepak 4 mg See Instructions, PO Daily, 1 box, 10/09/2012 Ordered Tablet Substitution Allowed PO Daily [place] 7.5/325 oral 1-2 tab, PO, Q4-6H, PRN, 20 tab, as 10/09/2012 10/12/2012 Ordered tablet needed for pain, Substitution Allowed, Maintenance Vital Signs Most recent to oldest [Reference Range]: 1 Height 193.04 cm (10/09/2012 11:42:00) Weight 122.727 kg (10/09/2012 11:42:00) Procedures Procedures Date Related Diagnosis Laminectomy 1 Tonsillectomy 1L3-5
--- OUTSIDE RECORDS SUMMARY | 2018-06-17 06:44 | XMS REPORT | Summary of Care ---
Author Organization Unknown Address Unknown Phone Unavailable Encounter Dates Location Diagnoses Discharge Providers Disposition 08/01/2013 [facility] Not Seen Horace Avendaño [facility] [place] 08/01/[address] Reason for Visit RECTAL BLEEDING Vital Signs Most recent to 1 oldest [Reference Range]: Height 193.04 cm (08/01/2013 13:58:00 [place]) Temperature Oral 97.7 DegF [96.4-99.1 DegF] (08/01/2013 13:58:00 [facility]) Systolic Blood 151 mmHg Pressure [90-140 *HI* mmHg] (08/01/2013 13:58:00 [facility]) Diastolic Blood 102 mmHg Pressure [60-90 *HI* mmHg] (08/01/2013 13:58:00 [facility]) Respiratory Rate 18 BRMIN [14-20 BRMIN] (08/01/2013 13:58:00 [facility]) Peripheral Pulse 82 bpm Rate [60-100 bpm] (08/01/2013 13:58:00 [place]) Weight 122.727 kg (08/01/2013 13:58:00 [place]) Body Mass Index 32.93 m2 (08/01/2013 13:58:00 [facility]/[place]) Problem List Condition Effective Dates Status Health Status Informant Abdominal Active pain(Confirmed) Anxiety(Confirmed) Resolved Chest Active pain(Confirmed) Chronic back Resolved pain(Confirmed) Hyperlipidemia(Confi Active rmed) Hypertension(Confirm Active ed) Lesion(Confirmed)1 Resolved PUD - Peptic ulcer Active disease(Confirmed) 1biopsy Misa cottrell. Allergies, Adverse Reactions, Alerts Status Substance Reaction Severity Active NKDA Medications No data available for this section [...]
--- OUTSIDE RECORDS SUMMARY | 2018-06-17 06:44 | XMS REPORT | Summary of Care ---
Author Organization Unknown Address Unknown Phone Unavailable Encounter JAMESON Harden(BERNARD) [id number] Date(s): 09/27/13 - 09/27/13 [facility] [address] Discharge Diagnosis: Sunburn of first degree Discharge Diagnosis: Abdominal pain, recurrent Discharge Disposition: Home Physician Attending: Tremaine Weldon DO Reason for Visit FACIAL BURN Vital Signs Most recent to 1 2 oldest [Reference Range]: Height 193.04 cm (09/27/13 1:37 PM) Temperature Oral 98.0 DegF 97.9 DegF [96.4-99.1 DegF] (09/27/13 3:12 PM) (09/27/13 1:37 PM) Systolic Blood 136 mmHg 137 mmHg Pressure [90-140 (09/27/13 3:12 PM) (09/27/13 1:37 PM) mmHg] Diastolic Blood 78 mmHg 86 mmHg Pressure [60-90 (09/27/13 3:12 PM) (09/27/13 1:37 PM) mmHg] Respiratory Rate 16 BRMIN 18 BRMIN [14-20 BRMIN] (09/27/13 3:12 PM) (09/27/13 1:37 PM) Peripheral Pulse 85 bpm 94 bpm Rate [60-100 bpm] (09/27/13 3:12 PM) (09/27/13 1:37 PM) Weight 122.727 kg (09/27/13 1:37 PM) Body Mass Index 32.93 m2 (09/27/13 1:37 PM) Problem List Condition Effective Dates Status Health Status Informant Abdominal Active pain(Confirmed) Anxiety(Confirmed) Resolved Chest Active pain(Confirmed) Chronic back Resolved pain(Confirmed) Hyperlipidemia(Confi Active rmed) Hypertension(Confirm Active ed) Lesion(Confirmed)1 Resolved PUD - Peptic ulcer Active disease(Confirmed) 1biopsy R nare. Allergies, Adverse Reactions, Alerts Substance Reaction Severity Status NKDA Active Medications Silvadene 1% topical cream 1 appl, Route: TOP, ONCE, Priority: Stat, Start date: 09/27/13 13:48:00, Stop da te: 09/27/13 13:48:00 Start Date: 09/27/13 Stop Date: 09/27/13 Status: Completed Sodium Chloride 0.9% (Bolus) IV - - 1,000 mL, 1,000 ml/hr, Infuse Over: 1 hr, Route: IV, ONCE, Priority: STAT, Dosin g Weight 122.727 kg, Start date: 09/27/13 13:47:00, Duration: 1 doses or times, Stop date: 09/27/13 13:47:00 Start Date: 09/27/13 Stop Date: 09/27/13 Status: Completed Results ELECTROLYTES Most recent to 1 oldest [Reference Range]: Sodium Lvl [135-145 140 mEq/L mEq/L] (09/27/13 1:50 PM) Potassium Lvl 3.6 mEq/L [3.5-5.1 mEq/L] (09/27/13 1:50 PM) Chloride Lvl [95-109 105 mEq/L mEq/L] (09/27/13 1:50 PM) CO2 [24-32 mEq/L] 30 mEq/L (09/27/13 1:50 PM) AGAP [10.0-20.0 8.6 mEq/L mEq/L] *LOW* (09/27/13 1:50 PM) CHEM PANEL Most recent to 1 oldest [Reference Range]: Creatinine Lvl 1.2 mg/dL [0.5-1.4 mg/dL] (09/27/13 1:50 PM) eGFR 72 mL/min/1.73m2 1 *NA* (09/27/13 1:50 PM) BUN [7-22 mg/dL] 14 mg/dL (09/27/13 1:50 PM) B/C Ratio [6-25] 12 (09/27/13 1:50 PM) Glucose Lvl [70-99 104 mg/dL 2 mg/dL] *HI* (09/27/13 1:50 PM) Total Protein 8.2 g/dL [6.4-8.4 g/dL] (09/27/13 1:50 PM) Albumin Lvl [3.5-5.0 4.0 g/dL g/dL] (09/27/13 1:50 PM) Globulin [2.0-4.0 4.2 g/dL g/dL] *HI* (09/27/13 1:50 PM) A/G Ratio [0.7-1.6] 1.0 (09/27/13 1:50 PM) Calcium Lvl 9.3 mg/dL [8.5-10.5 mg/dL] (09/27/13 1:50 PM) ALT [0-65 unit/L] 46 unit/L (09/27/13 1:50 PM) AST [0-37 unit/L] 18 unit/L (09/27/13 1:50 PM) Alk Phos [39-136 101 unit/L unit/L] (09/27/13 1:50 PM) Bili Total [0.2-1.3 0.4 mg/dL mg/dL] (09/27/13 1:50 PM) Lipase Lvl [73-393 211 unit/L unit/L] (09/27/13 1:50 PM) 1Result Comment: The eGFR is calculated using [...] values reflect the clinical guidelines of the [place] [employer]. HEMATOLOGY Most recent to 1 oldest [Reference Range]: WBC [3.7-10.4 K/CMM] 9.2 K/CMM (09/27/13 1:50 PM) RBC [4.70-6.10 5.45 M/CMM M/CMM] (09/27/13 1:50 PM) Hgb [14.0-18.0 g/dL] 16.8 g/dL (09/27/13 1:50 PM) Hct [42.0-54.0 %] 49.4 % (09/27/13 1:50 PM) MCV [80.0-94.0 fL] 90.7 fL (09/27/13 1:50 PM) MCH [27.0-31.0 pg] 30.7 pg (09/27/13 1:50 PM) MCHC [32.0-36.0 33.9 g/dL g/dL] (09/27/13 1:50 PM) RDW [11.5-14.5 %] 14.0 % (09/27/13 1:50 PM) Platelet [133-450 304 K/CMM K/CMM] (09/27/13 1:50 PM) MPV [7.4-10.4 fL] 8.3 fL (09/27/13 1:50 PM) Segs [45.0-75.0 %] 64.7 % (09/27/13 1:50 PM) Lymphocytes 22.8 % [20.0-40.0 %] (09/27/13 1:50 PM) Monocytes [2.0-12.0 8.4 % %] (09/27/13 1:50 PM) Eosinophils [0.0-4.0 3.5 % %] (09/27/13 1:50 PM) Basophils [0.0-1.0 0.6 % %] (09/27/13 1:50 PM) Segs-Bands # 6.0 K/CMM [1.5-8.1 K/CMM] (09/27/13 1:50 PM) Lymphocytes # 2.1 K/CMM [1.0-5.5 K/CMM] (09/27/13 1:50 PM) Monocytes # [0.0-0.8 0.8 K/CMM K/CMM] (09/27/13 1:50 PM) Eosinophils # 0.3 K/CMM [0.0-0.5 K/CMM] (09/27/13 1:50 PM) Basophils # [0.0-0.2 0.1 K/CMM K/CMM] (09/27/13 1:50 PM) Medications Administered During Your Visit No data [...]
--- OUTSIDE RECORDS SUMMARY | 2018-06-17 06:44 | XMS REPORT | CCD ---
Author Author Auto Generated Organization [facility] Address Unknown Phone Unavailable Care Team Providers Care Brake Lining Maker Name Role Phone Anibal Lima CP Allergies, Adverse Reactions, Alerts Substance Reaction Status NKDA Active Problem List Condition Effective Dates Status Abdominal pain Active Chest pain Active Chronic back pain Resolved Hyperlipidemia Active Hypertension Active Lesion1 Resolved PUD - Peptic ulcer disease Active 1biopsy R jaidene. Medications Medication Instructions Start Date End Date Status Benadryl 25 mg, 1 tab, Route: PO, Drug form: 11/23/2012 11/23/2012 Ordered TAB, ONCE, Dosing Weight 122.727, kg, Priority: STAT, Start date: 11/23/12 8:00:00, Stop date: 11/23/12 8:00:00 predniSONE 60 mg, Route: PO, Drug form: TAB, 11/23/2012 11/23/2012 Completed ONCE, Dosing Weight 122.727, kg, Priority: STAT, Start date: 11/23/12 7:59:00, Stop date: 11/23/12 7:59:00 Benadryl 25 mg oral 25 mg, 1 cap, PO, Q6H, PRN, 30 cap, 11/23/2012 Ordered capsule Allergic reaction, Substitution Allowed Medrol Dosepak 4 mg As directed on package 11/23/2012 11/29/2012 Ordered Tablet instructions, PO, Daily, Take with or without food, 1 Pack, Substitution Allowed Take with or without food hydrocortisone 1 appl, TOP, TID, 30 gm, 11/23/2012 Ordered topical 1% ointment Substitution Allowed, OINT Benadryl 25 mg oral 25 mg, 1 cap, PO, Q6H, PRN, 30 cap, 11/23/2012 Ordered capsule Allergic reaction, Substitution Allowed Vital Signs Most recent to oldest [Reference Range]: 1 Height 193.04 cm (11/23/2012 07:41:00) Weight 122.727 kg (11/23/2012 07:41:00)
--- OUTSIDE RECORDS SUMMARY | 2018-06-17 06:44 | XMS REPORT | Summary of Care ---
Author Organization Unknown Address Unknown Phone Unavailable Encounter Dates Location Diagnoses Discharge Providers Disposition 07/21/2013 [facility] Discharge Home [facility]dy [facility] - [facility] Diagnosis: 07/21/2013 [id number] [place] abdominal pain [place] [id number] , [facility] - NOS Reason for Visit ABDOMINAL PAIN Vital Signs 1 2 3 Most recent to oldest [Reference Range]: 193.04 cm (07/21/2013 05:57:00 [facility]) Height 97.8 DegF (07/21/2013 08:41:00 [facility]) 98.5 DegF (07/21/2013 05:57:00 [facility]) Temperature Oral [96.4-99.1 DegF] 128 mmHg (07/21/2013 09:05:00 [facility]) 122 mmHg (07/21/2013 08:29:00 [facility]) 130 mmHg (07/21/2013 07:59:00 [facility]) Systolic Blood Pressure [90-140 mmHg] 78 mmHg (07/21/2013 09:05:00 [facility]) 72 mmHg (07/21/2013 08:29:00 [facility]) 72 mmHg (07/21/2013 07:59:00 [facility]) Diastolic Blood Pressure [60-90 mmHg] 16 BRMIN (07/21/2013 07:59:00 [facility]) 18 BRMIN (07/21/2013 07:28:00 [facility]) 20 BRMIN (07/21/2013 05:57:00 [facility]) Respiratory Rate [14-20 BRMIN] 67 bpm (07/21/2013 09:05:00 [facility]) 87 bpm (07/21/2013 08:29:00 [facility]) 55 bpm *LOW* (07/21/2013 07:59:00 [facility]) Peripheral Pulse Rate [60-100 bpm] 122.727 kg (07/21/2013 05:57:00 [facility]) Weight 32.93 m2 (07/21/2013 05:57:00 [facility]) Body Mass Index Problem List Condition Effective Dates Status Health Status Informant Abdominal Active pain(Confirmed) Anxiety(Confirmed) Resolved Chest Active pain(Confirmed) Chronic back Resolved pain(Confirmed) Hyperlipidemia(Confi Active rmed) Hypertension(Confirm Active ed) Lesion(Confirmed)1 Resolved PUD - Peptic ulcer Active disease(Confirmed) 1biopsy R nare. Allergies, Adverse Reactions, Alerts Status Substance Reaction Severity Active NKDA Medications Medication Instructions Start Date Stop Date Status Ativan 0.5 mg, 0.25 mL, Route: IV, Drug 07/21/2013 07/21/2013 Completed form: INJ, ONCE, Dosing Weight 122.727, kg, Start date: 07/21/13 6:33:00, Stop date: 07/21/13 6:33:00 (Same as: Ativan) famotidine 20 mg, 2 mL, Route: IVP, Drug form: 07/21/2013 07/21/2013 Completed INJ, ONCE, Dosing Weight 122.727, kg, Priority: STAT, Start date: 07/21/13 6:24:00, Stop date: 07/21/13 6:24:00 (Same as: Pepcid)Can be dilute in 5-10cc NS IVP: Slow IV push over at least 2 minutes. morphine Sulfate 4 mg, 2 mL, Route: IVP, Drug form: 07/21/2013 07/21/2013 Completed INJ, ONCE, Dosing Weight 122.727, kg, Priority: STAT, Start date: 07/21/13 6:24:00, Stop date: 07/21/13 6:24:00 (Same as:MORPhine Sulfate) ondansetron 8 mg, 4 mL, Route: IVP, Drug form: 07/21/2013 07/21/2013 Completed INJ, ONCE, Dosing Weight 122.727, kg, Priority: STAT, Start date: 07/21/13 6:24:00, Stop date: 07/21/13 6:24:00 (Same as: Zofran) Saline Flush 0.9% 5 mL, Route: IVP, Drug Form: INJ, 07/21/2013 07/21/2013 Discontinued Dosing Weight 122.727, kg, PRN, PRN Line Flush, Start date: 07/21/13 6:24:00, Duration: 24 hr, Stop date: 07/22/13 6:23:00 Same as: BD Posiflush Sterile Sodium Chloride 0.9% 1,000 mL, Rate: 1,000 ml/hr, Infuse 07/21/2013 07/21/2013 Completed (Bolus) IV 1,000 mL over: 1 hr, Route: IV, Dosing Weight 122.727 kg, Total Volume: 1,000, Priority: STAT, Start date: 07/21/13 6:24:00, Duration: 1 doses or times, Stop date: 07/21/13 7:23:00 Results ELECTROLYTES Most recent to 1 oldest [Reference Range]: Sodium Lvl [135-145 142 mEq/L mEq/L] (07/21/2013 06:40:00 [facility]) Potassium Lvl 4.2 mEq/L [3.5-5.1 mEq/L] (07/21/2013 06:40:00 [facility]) Chloride Lvl [95-109 105 mEq/L mEq/L] (07/21/2013 06:40:00 [facility]) CO2 [24-32 mEq/L] 30 mEq/L (07/21/2013 06:40:00 [facility]) AGAP [10.0-20.0 11.2 mEq/L mEq/L] (07/21/2013 06:40:00 [facility]) CHEM PANEL Most recent to 1 oldest [Reference Range]: Creatinine Lvl 1.0 mg/dL [0.5-1.4 mg/dL] (07/21/2013 06:40:00 [facility]) eGFR 87 mL/min/1.73m2 1 *NA* (07/21/2013 06:40:00 [facility]) BUN [7-22 mg/dL] 11 mg/dL (07/21/2013 06:40:00 [facility]) B/C Ratio [6-25] 11 (07/21/2013 06:40:00 [facility]) Glucose Lvl [70-99 90 mg/dL 2 mg/dL] (07/21/2013 06:40:00 [facility]) Total Protein 6.8 g/dL [6.4-8.4 g/dL] (07/21/2013 06:40:00 [facility]) Albumin Lvl [3.5-5.0 3.8 g/dL g/dL] (07/21/2013 06:40:00 [facility]) Globulin [2.0-4.0 3.0 g/dL g/dL] (07/21/2013 06:40:00 [facility]) A/G Ratio [0.7-1.6] 1.3 (07/21/2013 06:40:00 [facility]) Calcium Lvl 8.9 mg/dL [8.5-10.5 mg/dL] [facility] ALT [0-65 unit/L] 40 unit/L (07/21/2013 06:40:00 [facility]) AST [0-37 unit/L] 21 unit/L (07/21/2013 06:40:00 [facility]) Alk Phos [39-136 85 unit/L unit/L] (07/21/2013 06:40:00 [facility]) Bili Total [0.2-1.3 0.6 mg/dL mg/dL] (07/21/2013 06:40:00 [facility]) Lipase Lvl [73-393 129 unit/L unit/L] (07/21/2013 06:40:00 [facility]) 1Result Comment: The eGFR is calculated [...] values reflect the clinical guidelines of the [place] [employer]. CARDIAC ENZYMES Most recent to 1 oldest [Reference Range]: Total CK [12-191 306 unit/L unit/L] *HI* (07/21/2013 06:40:00 [facility]) CK MB [0.5-3.6 2.2 ng/mL ng/mL] (07/21/2013 06:40:00 [facility]) CK MB Index 0.7 [0.0-2.5] (07/21/2013 06:40:00 [facility]) Troponin-I <0.02 ng/mL [0.00-0.40 ng/mL] (07/21/2013 06:40:00 [facility]) URINE AND STOOL Most recent to 1 oldest [Reference Range]: UA Turbidity [Clear] Clear (07/21/2013 07:00:00 [facility]) UA Color [Yellow] Colorless (07/21/2013 07:00:00 [facility]) UA pH [5.0-8.0] 7.0 (07/21/2013 07:00:00 [facility]) UA Spec Grav <=1.005 [<=1.030] *NA* (07/21/2013 07:00:00 [facility]) UA Glucose Negative [Negative] (07/21/2013 07:00:00 [facility]) UA Blood [Negative] Negative (07/21/2013 07:00:00 [facility]) UA Ketones Negative [Negative] *NA* (07/21/2013 07:00:00 [facility]) UA Protein Negative [Negative] (07/21/2013 07:00:00 [facility]) UA Urobilinogen 0.2 EU/dL [0.1-1.0 EU/dL] (07/21/2013 07:00:00 [facility]) UA Bili [Negative] Negative *NA* (07/21/2013 07:00:00 [facility]) UA Leuk Est Negative [Negative] (07/21/2013 07:00:00 [facility]) UA Nitrite Negative [Negative] (07/21/2013 07:00:00 [facility]) UA WBC [None Seen] None Seen (07/21/2013 07:00:00 [facility]) UA RBC [0-2] None Seen (07/21/2013 07:00:00 [facility]) UA Bacteria [None None Seen Seen] (07/21/2013 07:00:00 [facility]) UA Sq Epi [Few] None Seen (07/21/2013 07:00:00 [facility]) Micro? Performed (07/21/2013 07:00:00 [facility]) HEMATOLOGY Most recent to 1 oldest [Reference Range]: WBC [3.7-10.4 K/CMM] 6.3 K/CMM (07/21/2013 06:40:00 [facility]) RBC [4.70-6.10 4.68 M/CMM M/CMM] *LOW* (07/21/2013 06:40:00 [facility]) Hgb [14.0-18.0 g/dL] 14.7 g/dL (07/21/2013 06:40:00 [facility]) Hct [42.0-54.0 %] 43.0 % (07/21/2013 06:40:00 [facility]) MCV [80.0-94.0 fL] 92.0 fL (07/21/2013 06:40:00 [facility]) MCH [27.0-31.0 pg] 31.4 pg *HI* (07/21/2013 06:40:00 [facility]) MCHC [32.0-36.0 34.2 g/dL g/dL] (07/21/2013 06:40:00 [facility]) RDW [11.5-14.5 %] 14.7 % *HI* (07/21/2013 06:40:00 [facility]) Platelet [133-450 270 K/CMM K/CMM] (07/21/2013 06:40:00 [facility]) MPV [7.4-10.4 fL] 7.7 fL (07/21/2013 06:40:00 [facility]) Segs [45.0-75.0 %] 51.6 % (07/21/2013 06:40:00 [facility]) Lymphocytes 33.0 % [20.0-40.0 %] (07/21/2013 06:40:00 [facility]) Monocytes [2.0-12.0 8.8 % %] (07/21/2013 06:40:00 [facility]) Eosinophils [0.0-4.0 5.6 % %] *HI* (07/21/2013 06:40:00 [facility]) Basophils [0.0-1.0 1.0 % %] (07/21/2013 06:40:00 [facility]) Segs-Bands # 3.2 K/CMM [1.5-8.1 K/CMM] (07/21/2013 06:40:00 [facility]) Lymphocytes # 2.1 K/CMM [1.0-5.5 K/CMM] (07/21/2013 06:40:00 [facility]) Monocytes # [0.0-0.8 0.6 K/CMM K/CMM] (07/21/2013 06:40:00 [facility]) Eosinophils # 0.4 K/CMM [0.0-0.5 K/CMM] (07/21/2013 06:40:00 [facility]) Basophils # [0.0-0.2 0.1 K/CMM K/CMM] (07/21/2013 06:40:00 [facility]) Medications Administered During Your Visit No data [...]
--- OUTSIDE RECORDS SUMMARY | 2018-06-17 06:44 | XMS REPORT | CCD ---
Author Author Auto Generated Organization [facility] Address Unknown Phone Unavailable Care Team Providers Care Trainer Name Role Phone Emeterio Fields CP Allergies, Adverse Reactions, Alerts Substance Reaction Status NKDA Active Problem List Condition Effective Dates Status Abdominal pain Active Chest pain Active Hyperlipidemia Active Hypertension Active PUD - Peptic ulcer disease Active Vital Signs Most recent to oldest [Reference Range]: 1 Height 193.04 cm (09/28/2012 00:02:00) Weight 113.636 kg (09/28/2012 00:02:00)
--- OUTSIDE RECORDS SUMMARY | 2018-06-17 06:44 | XMS REPORT | Summary of Care ---
Author Organization Unknown Address Unknown Phone Unavailable Encounter JAMESON Harden(BERNARD) [id number] Date(s): 12/22/13 - 12/22/[facility] [id number] Discharge Disposition: Non-Emergent Physician Attending: Clayton Nevarez MD Reason for Visit ALLERGIC REACTION Vital Signs Most recent to 1 oldest [Reference Range]: Height 193.04 cm (12/22/13 3:37 PM) Temperature Oral 98.7 DegF [96.4-99.1 DegF] (12/22/13 3:37 PM) Systolic Blood 167 mmHg Pressure [90-140 *HI* mmHg] (12/22/13 3:37 PM) Diastolic Blood 108 mmHg Pressure [60-90 *HI* mmHg] (12/22/13 3:37 PM) Respiratory Rate 18 BRMIN [14-20 BRMIN] (12/22/13 3:37 PM) Peripheral Pulse 86 bpm Rate [60-100 bpm] (12/22/13 3:37 PM) Weight 122.727 kg (12/22/13 3:37 PM) Body Mass Index 32.93 m2 (12/22/13 3:37 PM) Problem List Condition Effective Dates Status [...]
--- OUTSIDE RECORDS SUMMARY | 2018-06-17 06:44 | XMS REPORT | CCD ---
Author Author Auto Generated Organization [facility] Address Unknown Phone Unavailable Care Team Providers Care Butter Wrapper Name Role Phone Jacquelyn Cohen CP Unavailable Negrito aCldwell CP Unavailable Aristeo Friend CP Kelsie Murdock CP Unavailable Love Bernal CP [phone] Maulik Pires CP Unavailable Yg William CP Bere Solano CP [phone] Reg Fry CP Unavailable Gertrudis Amaya CP Roxanne Orellana RN CP Unavailable Love León CP [phone] Galina Thao CP Unavailable Carmina Alva CP Unavailable Michelle Espitia CP Unavailable Kojo Harding CP Anibal Lima CP Rakesh Krueger CP Unavailable Magdalene Giang CP Unavailable Blas Arias CP Unavailable Jus Molina Jr CP Preeti Jones CP Bebe Jacinto CP Unavailable Jayro Aldridge CP Unavailable Brian Lua I CP Jannet Herrera CP [phone] Cecilia Portillo CP Unavailable Juana Benson CP Unavailable Raciel Villasenor CP Unavailable Ondina Miranda CP [phone] Amanda Grace CP Unavailable Gertrudis Reynoso CP Unavailable Jyoti Marquez CP Unavailable Filemon Tavares CP Unavailable Kala Frye CP Martinez Patricio CP Unavailable Oli Juana Speedy CP Unavailable KevinAlbaTemitope Temo CP Valentina Hassan CP Unavailable Meg Em CP Unavailable NestorharrietBri Navdeep CP Unavailable Jeff Hurd CP Mao Adams CP Unavailable SYSTEM, SYSTEM CP Unavailable MuluGavin palencia CP Kevin Temitope Plascencia CP Unavailable Asuncion Kearns CP Unavailable RoxanaGertrudis CP Unavailable Jacques Corcoran CP [phone] Rach Costellomma CP [phone] Gideon Valencia CP [phone] Lorena Funk CP [phone] Henrry Pitts CP [phone] Piotr Mead CP Tiffany Mendoza CP [phone] Dinora Mars CP Unavailable Arnel Reyna CP Unavailable Tigre Nino CP Unavailable AriannaMagy marino CP Unavailable Shayna Julien CP Noemy Mueller CP Unavailable Jackie Dempsey CP [phone] Yifan Saini CP [phone] Rakesh Gaytan CP Unavailable Sara Catherien CP Unavailable Shawanda Yuan CP Unavailable Kelsie Henry CP [phone] Marya Carpio CP [phone] Mago Henderson CP Unavailable Allergies, Adverse Reactions, Alerts Substance Reaction Status NKDA ?? Active Problem List Condition Effective Dates Status Abdominal pain ?? Active Chest pain ?? Active Hyperlipidemia ?? Active Hypertension ?? Active PUD - Peptic ulcer disease ?? Active Medications Medication Instructions Start Date End Date Status Dextrose 5% with 1,000 mL, Rate: 125 ml/hr, Infuse 02/14/2011 02/17/2011 Discontinued 0.9% NaCl IV 1,000 over: 8 hr, Route: IV, Total mL 1,000 mL Volume: 1,000, Start date: 02/14/11 23:35:00, Stop date: 03/16/11 23:34:00 ondansetron 4 mg, 2 mL, Route: IVP, Drug form: 02/14/2011 02/17/2011 Discontinued INJ, Q6H, PRN Nausea & Vomiting, Start date: 02/14/11 23:35:00, Duration: 30 day, Stop date: 03/16/11 23:34:00 Saline Flush 0.9% 5 ml, Route: IVP, Drug Form: INJ, 02/14/2011 02/17/2011 Discontinued PRN, PRN Line Flush, Start date: 02/14/11 23:35:00, Duration: 30 day, Stop date: 03/16/11 22:34:00 Dulcolax Laxative 10 mg, 2 tab, Route: PO, Drug form: 02/16/2011 02/16/2011 Completed ECTAB, ONCE, Start date: 02/16/11 23:00:00, Stop date: 02/16/11 23:00:00 Dulcolax Laxative 10 mg, 2 tab, Route: PO, Drug form: 02/16/2011 02/16/2011 Completed ECTAB, ONCE, Start date: 02/16/11 19:00:00, Stop date: 02/16/11 19:00:00 Sodium Chloride 0.9% 1,000 mL, Rate: 150 ml/hr, Infuse 02/14/2011 02/16/2011 Discontinued IV 1,000 mL over: 6.7 hr, Route: IV, Total Volume: 1,000, Start date: 02/14/11 20:56:00, Duration: 30 day, Stop date: 03/16/11 20:55:00 Sodium Chloride 0.9% 500 mL, Rate: 500 ml/hr, Infuse 02/14/2011 02/14/2011 Completed (Bolus) IV 500 mL over: 1 hr, Route: IV, Total Volume: 500, Bolus Dose, Priority: STAT, Start date: 02/14/11 20:56:00, Duration: 1 doses or times, Stop date: 02/14/11 21:55:00 Zofran 4 mg, 2 mL, Route: IVP, Drug form: 02/14/2011 02/14/2011 Completed INJ, ONCE, Priority: STAT, Start date: 02/14/11 20:56:00, Stop date: 02/14/11 20:56:00 Dilaudid 2 mg, 1 mL, Route: IV, Drug form: 02/14/2011 02/14/2011 Completed INJ, ONCE, Priority: STAT, Start date: 02/14/11 20:56:00, Stop date: 02/14/11 20:56:00 lisinopril 10 mg, 1 tab, Route: PO, Drug form: 02/16/2011 02/17/2011 Discontinued TAB, Daily, Start date: 02/16/11 9:00:00, Duration: 30 day, Stop date: 03/17/11 9:00:00 chlordiazepoxide-cli 1 cap, Route: PO, Drug Form: CAP, 02/17/2011 02/17/2011 Discontinued dinium 5 mg-2.5 mg Q6H, Start date: 02/17/11 0:00:00, oral capsule Duration: 30 day, Stop date: 03/18/11 18:00:00 ALPRAZOLam 0.25 mg 1 tab, PO, Daily, Substitution 02/14/2011 ?? Suspended oral tablet, Allowed, DIS Tablet disintegrating Crestor 5 mg oral 1 tab, PO, Daily, 30 tab, 02/14/2011 ?? Suspended tablet Substitution Allowed, TAB pantoprazole 40 mg 1 tab, PO, BID, 30 tab, 02/14/2011 ?? Suspended oral enteric coated Substitution Allowed, ECTAB tablet lisinopril 10 mg 1 tab, PO, Daily, 30 tab, 02/14/2011 ?? Suspended oral tablet Substitution Allowed, TAB nitroglycerin 0.4 mg 0.4 mg, 1 tab, Route: SL, Drug 02/16/2011 02/17/2011 Discontinued sublingual tablet form: TAB, Q5Min, PRN Chest Pain, Start date: 02/16/11 15:55:00, Duration: 30 day, Stop date: 03/18/11 14:54:00 atropine 0.5 mg, 5 mL, Route: IVP, Drug 02/16/2011 02/17/2011 Discontinued form: INJ, PRN, PRN Bradycardia, Start date: 02/16/11 15:55:00, Duration: 30 day, Stop date: 03/18/11 14:54:00 pantoprazole 80 mg + 100 mL, Rate: 10 ml/hr, Infuse 02/14/2011 02/17/2011 Discontinued Sodium Chloride 0.9% over: 10 hr, Route: IVPB, Total IV 100 mL Volume: 100, Infuse at 8 mg / hr for 72 hours for GI bleeding, Start date: 02/14/11 23:35:00, Duration: 72 hr, Stop date: 02/17/11 23:34:00 Dilaudid 1 mg, 1 mL, Route: IV, Drug form: 02/14/2011 02/17/2011 Discontinued SOLN, Q4H, PRN Pain, Priority: STAT, Start date: 02/14/11 23:35:00, Duration: 30 day, Stop date: 03/16/11 23:34:00 Lactated Ringers IV 1,000 mL, Rate: 40 ml/hr, Infuse 02/17/2011 02/17/2011 Discontinued 1,000 mL over: 25 hr, Route: IV, Total Volume: 1,000, Start date: 02/17/11 15:27:00, Duration: 30 day, Stop date: 03/19/11 15:26:00 Saline Flush 0.9% 5 ml, Route: IVP, Drug Form: INJ, 02/14/2011 02/14/2011 Discontinued PRN, PRN Line Flush, Start date: 02/14/11 19:23:00, Duration: 24 hr, Stop date: 02/15/11 19:22:00 GoLYTELY 4,000 mL, Route: PO, Drug Form: 02/16/2011 02/16/2011 Completed PDR/REC, ONCE, Start date: 02/16/11 19:30:00, Stop date: 02/16/11 19:30:00 Benadryl 25 mg, 1 tab, Route: PO, Drug form: 02/15/2011 02/17/2011 Discontinued TAB, Bedtime, PRN See Nurse's Notes, Start date: 02/15/11 22:03:00, Duration: 30 day, Stop date: 03/17/11 22:02:00 Vital Signs Most recent to oldest [Reference Range]: 1 2 3 Height 190.50 cm (02/14/2011 17:39:00) ? Temperature Oral [96.4-99.1 DegF] 98.0 DegF (02/17/2011 12:00:00) ?? 97.5 DegF (02/17/2011 08:00:00) ?? 97.6 DegF (02/17/2011 04:30:00) ?? Systolic Blood Pressure [90-140 mmHg] 129 mmHg (02/17/2011 14:00:00) ?? 128 mmHg (02/17/2011 13:45:00) ?? 127 mmHg (02/17/2011 13:41:00) ?? Diastolic Blood Pressure [60-90 mmHg] 74 mmHg (02/17/2011 14:00:00) ?? 76 mmHg (02/17/2011 13:45:00) ?? 68 mmHg (02/17/2011 13:41:00) ?? Respiratory Rate [14-20 BRMIN] 20 BRMIN (02/17/2011 14:00:00) ?? 20 BRMIN (02/17/2011 13:45:00) ?? 20 BRMIN (02/17/2011 13:41:00) ?? Peripheral Pulse Rate [60-100 bpm] 47 bpm *LOW* (02/17/2011 14:00:00) ?? 53 bpm *LOW* (02/17/2011 13:45:00) ?? 45 bpm *LOW* (02/17/2011 13:41:00) ?? Weight 113.636 kg (02/14/2011 17:39:00) ? Results TUMOR MARKERS Most recent to oldest [Reference Range]: 1 2 3 CA 19-9 [0.0-35.0 U/mL] 9.3 U/mL (02/17/2011 04:19:00) ? URINALYSIS Most recent to oldest [Reference Range]: 1 2 3 UA Turbidity [>Clear] Clear (02/14/2011 19:18:00) ? UA Color [>Yellow] Yellow *NA* (02/14/2011 19:18:00) ? UA pH [5.0-8.0] 5.5 (02/14/2011 19:18:00) ? UA Spec Grav [<<=1.030] >=1.030 *ABN* (02/14/2011 19:18:00) ? UA Glucose [>Negative] Negative (02/14/2011 19:18:00) ? UA Blood [>Negative] Small *ABN* (02/14/2011 19:18:00) ? UA Ketones [>Negative] Trace *ABN* (02/14/2011 19:18:00) ? UA Protein [>Negative] Negative (02/14/2011 19:18:00) ? UA Urobilinogen [0.1-1.0 EU/dL] 0.2 EU/dL (02/14/2011 19:18:00) ? UA Bili [>Negative] Small 1 *ABN* (02/14/2011 19:18:00) ? UA Leuk Est [>Negative] Negative (02/14/2011 19:18:00) ? UA Nitrite [>Negative] Negative (02/14/2011 19:18:00) ? UA WBC [>None Seen /HPF] 0-2 /HPF (02/14/2011 19:18:00) ? UA RBC [>0-2 /HPF] 0-2 /HPF (02/14/2011 19:18:00) ? UA Bacteria [>None Seen] None Seen (02/14/2011 19:18:00) ? UA Sq Epi [>Few] None Seen (02/14/2011 19:18:00) ? UA Mucus [>None Seen /LPF] Few /LPF (02/14/2011 19:18:00) ? Micro? Performed (02/14/2011 19:18:00) ? 1Result Comment: confirmed with Ictotest Method CHEMISTRY Most recent to oldest [Reference Range]: 1 2 3 Sodium Lvl [135-145 mEq/L] 145 mEq/L (02/17/2011 04:19:00) ?? 144 mEq/L (02/16/2011 05:33:00) ?? 143 mEq/L (02/15/2011 04:00:00) ?? Potassium Lvl [3.5-5.1 mEq/L] 3.9 mEq/L (02/17/2011 04:19:00) ?? 4.3 mEq/L (02/16/2011 05:33:00) ?? 4.4 mEq/L (02/15/2011 04:00:00) ?? Chloride Lvl [95-109 mEq/L] 105 mEq/L (02/17/2011 04:19:00) ?? 107 mEq/L (02/16/2011 05:33:00) ?? 110 mEq/L *HI* (02/15/2011 04:00:00) ?? CO2 [24-32 mEq/L] 31 mEq/L (02/17/2011 04:19:00) ?? 30 mEq/L (02/16/2011 05:33:00) ?? 28 mEq/L (02/15/2011 04:00:00) ?? AGAP [10.0-20.0 mEq/L] 12.9 mEq/L (02/17/2011 04:19:00) ?? 11.3 mEq/L (02/16/2011 05:33:00) ?? 9.4 mEq/L *LOW* (02/15/2011 04:00:00) ?? Creatinine Lvl [0.5-1.4 mg/dL] 1.2 mg/dL (02/17/2011 04:19:00) ?? 1.3 mg/dL (02/16/2011 05:33:00) ?? 1.1 mg/dL (02/15/2011 04:00:00) ?? BUN [7-22 mg/dL] 3 mg/dL *LOW* (02/17/2011 04:19:00) ?? 5 mg/dL *LOW* (02/16/2011 05:33:00) ?? 16 mg/dL (02/15/2011 04:00:00) ?? B/C Ratio [6-25] 4 *LOW* (02/16/2011 05:33:00) ?? 7 (02/14/2011 19:18:00) ? Glucose Lvl 94 mg/dL 2 *NA* (02/17/2011 04:19:00) ?? 92 mg/dL 3 *NA* (02/16/2011 05:33:00) ?? 99 mg/dL 4 *NA* (02/15/2011 04:00:00) ?? Total Protein [6.4-8.4 g/dL] 5.8 g/dL *LOW* (02/16/2011 05:33:00) ?? 8.3 g/dL (02/14/2011 19:18:00) ? Albumin Lvl [3.5-5.0 g/dL] 3.1 g/dL *LOW* (02/16/2011 05:33:00) ?? 4.2 g/dL (02/14/2011 19:18:00) ? Globulin [2.0-4.0 g/dL] 2.7 g/dL (02/16/2011 05:33:00) ?? 4.1 g/dL *HI* (02/14/2011 19:18:00) ? A/G Ratio [0.7-1.6] 1.1 (02/16/2011 05:33:00) ?? 1.0 (02/14/2011 19:18:00) ? Calcium Lvl [8.5-10.5 mg/dL] 8.7 mg/dL (02/17/2011 04:19:00) ?? 8.5 mg/dL (02/16/2011 05:33:00) ?? 8.3 mg/dL *LOW* (02/15/2011 04:00:00) ?? ALT [0-65 U/L] 26 U/L (02/16/2011 05:33:00) ?? 35 U/L (02/14/2011 19:18:00) ? AST [0-37 U/L] 13 U/L (02/16/2011 05:33:00) ?? 15 U/L (02/14/2011 19:18:00) ? Alk Phos [39-136 U/L] 72 U/L (02/16/2011 05:33:00) ?? 95 U/L (02/14/2011 19:18:00) ? Bili Total [0.2-1.3 mg/dL] 0.3 mg/dL (02/16/2011 05:33:00) ?? 0.5 mg/dL (02/14/2011 19:18:00) ? Amylase Lvl [25-115 U/L] 49 U/L (02/14/2011 19:18:00) ? Lipase Lvl [73-393 U/L] 155 U/L (02/14/2011 19:18:00) ? TSH [0.360-3.740 uIU/mL] 1.840 uIU/mL (02/16/2011 05:33:00) ? 2Interpretive Data: Reference Ranges : 0 - 7 days : 41 - 90 mg/dL7 days - 150 yrs : 70 - 99 mg/dL (fasting), based on the clinical recommendations of the [employer] [employer]. 3Interpretive Data: Reference Ranges : 0 - 7 days : 41 - 90 mg/dL7 days - 150 yrs : 70 - 99 mg/dL (fasting), based on the clinical recommendations of the [employer]. 4Interpretive Data: Reference Ranges : 0 - 7 days : 41 - 90 mg/dL7 days - 150 yrs : 70 - 99 mg/dL (fasting), based on the clinical recommendations of the [employer] [employer]. HEMATOLOGY Most recent to oldest [Reference Range]: 1 2 3 WBC [3.7-10.4 K/CMM] 8.1 K/CMM (02/17/2011 04:19:00) ?? 7.6 K/CMM (02/16/2011 05:33:00) ?? 6.2 K/CMM (02/15/2011 04:00:00) ?? RBC [4.70-6.10 M/CMM] 4.18 M/CMM *LOW* (02/17/2011 04:19:00) ?? 3.99 M/CMM *LOW* (02/16/2011 05:33:00) ?? 4.51 M/CMM *LOW* (02/15/2011 04:00:00) ?? Hgb [14.0-18.0 g/dL] 12.7 g/dL *LOW* (02/17/2011 04:19:00) ?? 12.6 g/dL *LOW* (02/16/2011 05:33:00) ?? 15.2 g/dL (02/15/2011 04:00:00) ?? Hct [42.0-54.0 %] 38.1 % *LOW* (02/17/2011 04:19:00) ?? 35.9 % *LOW* (02/16/2011 05:33:00) ?? 42.9 % (02/15/2011 04:00:00) ?? MCV [80.0-94.0 fL] 91.1 fL (02/17/2011 04:19:00) ?? 89.9 fL (02/16/2011 05:33:00) ?? 95.1 fL *HI* (02/15/2011 04:00:00) ?? MCH [27.0-31.0 pg] 30.3 pg (02/17/2011 04:19:00) ?? 31.5 pg *HI* (02/16/2011 05:33:00) ?? 33.6 pg *HI* (02/15/2011 04:00:00) ?? MCHC [32.0-36.0 g/dL] 33.3 g/dL (02/17/2011 04:19:00) ?? 35.1 g/dL (02/16/2011 05:33:00) ?? 35.4 g/dL (02/15/2011 04:00:00) ?? RDW [11.5-14.5 %] 13.6 % (02/17/2011 04:19:00) ?? 13.7 % (02/16/2011 05:33:00) ?? 12.6 % (02/15/2011 04:00:00) ?? Platelet [133-450 K/CMM] 252 K/CMM (02/17/2011 04:19:00) ?? 253 K/CMM (02/16/2011 05:33:00) ?? 228 K/CMM (02/15/2011 04:00:00) ?? MPV [7.4-10.4 fL] 9.1 fL (02/17/2011 04:19:00) ?? 8.7 fL (02/16/2011 05:33:00) ?? 7.9 fL (02/15/2011 04:00:00) ?? Segs [45.0-75.0 %] 51.8 % (02/17/2011 04:19:00) ?? 48.9 % (02/16/2011 05:33:00) ?? 38.1 % *LOW* (02/15/2011 04:00:00) ?? Lymphocytes [20.0-40.0 %] 33.8 % (02/17/2011 04:19:00) ?? 36.4 % (02/16/2011 05:33:00) ?? 46.7 % *HI* (02/15/2011 04:00:00) ?? Monocytes [2.0-12.0 %] 10.8 % (02/17/2011 04:19:00) ?? 10.4 % (02/16/2011 05:33:00) ?? 10.9 % (02/15/2011 04:00:00) ?? Eosinophils [0.0-4.0 %] 3.4 % (02/17/2011 04:19:00) ?? 4.0 % (02/16/2011 05:33:00) ?? 4.1 % *HI* (02/15/2011 04:00:00) ?? Basophils [0.0-1.0 %] 0.2 % (02/17/2011 04:19:00) ?? 0.3 % (02/16/2011 05:33:00) ?? 0.2 % (02/15/2011 04:00:00) ?? Segs-Bands # [1.5-8.1 K/CMM] 4.2 K/CMM (02/17/2011 04:19:00) ?? 3.7 K/CMM (02/16/2011 05:33:00) ?? 2.3 K/CMM (02/15/2011 04:00:00) ?? Lymphocytes # [1.0-5.5 K/CMM] 2.7 K/CMM (02/17/2011 04:19:00) ?? 2.7 K/CMM (02/16/2011 05:33:00) ?? 2.9 K/CMM (02/15/2011 04:00:00) ?? Monocytes # [0.0-0.8 K/CMM] 0.9 K/CMM *HI* (02/17/2011 04:19:00) ?? 0.8 K/CMM (02/16/2011 05:33:00) ?? 0.7 K/CMM (02/15/2011 04:00:00) ?? Eosinophils # [0.0-0.5 K/CMM] 0.3 K/CMM (02/17/2011 04:19:00) ?? 0.3 K/CMM (02/16/2011 05:33:00) ?? 0.2 K/CMM (02/15/2011 04:00:00) ?? Basophils # [0.0-0.2 K/CMM] 0.0 K/CMM (02/17/2011 04:19:00) ?? 0.0 K/CMM (02/16/2011 05:33:00) ?? 0.0 K/CMM (02/15/2011 04:00:00) ?? PT [12.0-14.7 seconds] 12.6 seconds (02/15/2011 04:00:00) ? INR [0.85-1.17] 0.94 5 (02/15/2011 04:00:00) ? PTT [22.9-35.8 seconds] 27.7 seconds 6 (02/15/2011 04:00:00) ? 5Interpretive Data: RECOMMENDED RANGES FOR PROTIME INR: 2.0-3.0 for most medical and surgical thromboembolic states. 2.5-3.5 for artificial heart valves and recurrent embolism.INR SHOULD BE USED ONLY FOR PATIENTS ON STABLE ANTICOAGULANT THERAPY. 6Interpretive Data: Heparin Therapeutic Range: 57 - 92 Seconds
--- OUTSIDE RECORDS SUMMARY | 2018-06-17 06:44 | XMS REPORT | CCD ---
Author Author Auto Generated Organization [facility] Address Unknown Phone Unavailable Care Team Providers Care Inventory Administrator Name Role Phone Freeman Brush CP Allergies, Adverse Reactions, Alerts Substance Reaction Status NKDA Active Problem List Condition Effective Dates Status Abdominal pain Active Chest pain Active Hyperlipidemia Active Hypertension Active PUD - Peptic ulcer disease Active Medications Medication Instructions Start Date End Date Status Pepcid AC 10 mg, Route: PO, ONCE, Dosing 04/17/2012 04/17/2012 Completed Weight 122.727, kg, Start date: 04/17/12 5:25:00, Stop date: 04/17/12 5:25:00 Benadryl 25 mg, Route: PO, Drug form: CAP, 04/17/2012 04/17/2012 Completed ONCE, Dosing Weight 122.727, kg, Priority: STAT, Start date: 04/17/12 5:24:00, Stop date: 04/17/12 5:24:00 SoluMedrol 125 mg, Route: IVP, ONCE, Dosing 04/17/2012 04/17/2012 Completed Weight 122.727, kg, Priority: STAT, Start date: 04/17/12 5:23:00, Stop date: 04/17/12 5:23:00 predniSONE 20 mg 20 mg, 1 tab, PO, Daily, 10 tab, 04/17/2012 04/27/2012 Ordered oral tablet Substitution Allowed, TAB Vital Signs Most recent to oldest [Reference Range]: 1 Height 193.04 cm (04/17/2012 04:36:00) Weight 122.727 kg (04/17/2012 04:36:00)
--- OUTSIDE RECORDS SUMMARY | 2018-06-17 06:45 | XMS REPORT | Summary of Care ---
Author Organization Unknown Address Unknown Phone Unavailable Encounter JAMESON Harden(BERNARD) [id number] Date(s): 10/20/14 - 10/20/14 [facility] [address] [place] [address]- Discharge Diagnosis: Otalgia of right ear Discharge Disposition: Home Physician Attending: Sanjeev Martinez MD Vital Signs Most recent to 1 oldest [Reference Range]: Height 193.04 cm (10/20/14 6:05 PM) Temperature Oral 97.9 DegF [96.4-99.1 DegF] (10/20/14 6:05 PM) Blood Pressure 155/85 mmHg [90-140/60-90 mmHg] *HI* (10/20/14 6:05 PM) Respiratory Rate 18 BRMIN [14-20 BRMIN] (10/20/14 6:05 PM) Peripheral Pulse 81 bpm Rate [60-100 bpm] (10/20/14 6:05 PM) Weight 118.182 kg (10/20/14 6:05 PM) Body Mass Index 31.71 m2 (10/20/14 6:05 PM) Problem List Condition Effective Dates Status Health Status Informant Abdominal Active pain(Confirmed) Anxiety(Confirmed) Resolved Chest Active pain(Confirmed) Chronic back Resolved pain(Confirmed) Hyperlipidemia(Confi Active rmed) Hypertension(Confirm Active ed) Lesion(Confirmed)1 Resolved PUD - Peptic ulcer Active disease(Confirmed) 1biopsy R nare. Allergies, Adverse Reactions, Alerts Substance Reaction Severity Status NKDA Active Medications Auralgan Otic solution (A/B Otic solution) 2 drp, Each Affected Ear, Q2H, PRN Pain, X 5 day, # 15 ml, 0 Refill(s) Start Date: 10/20/14 Stop Date: 10/25/14 Status: Ordered Results No data available for this section [...]
--- OUTSIDE RECORDS SUMMARY | 2018-06-17 06:45 | XMS REPORT | Summary of Care ---
Author Organization Unknown Address Unknown Phone Unavailable Encounter JAMESON Harden(BERNARD) [id number] Date(s): 02/22/14 - 02/22/14 [facility] [address] Discharge Diagnosis: Abdominal pain Discharge Disposition: Home Physician Attending: Clayton Nevarez MD Reason for Visit ABDOMINAL PAIN Vital Signs Most recent to 1 2 oldest [Reference Range]: Temperature Oral 98.1 DegF 97.8 DegF [96.4-99.1 DegF] (02/22/14 9:30 AM) (02/22/14 7:36 AM) Systolic Blood 130 mmHg 145 mmHg Pressure [90-140 (02/22/14 9:30 AM) *HI* mmHg] (02/22/14 7:36 AM) Diastolic Blood 75 mmHg 89 mmHg Pressure [60-90 (02/22/14 9:30 AM) (02/22/14 7:36 AM) mmHg] Respiratory Rate 20 BRMIN 20 BRMIN [14-20 BRMIN] (02/22/14 9:30 AM) (02/22/14 7:36 AM) Peripheral Pulse 56 bpm 72 bpm Rate [60-100 bpm] *LOW* (02/22/14 7:36 AM) (02/22/14 9:30 AM) Weight 122.727 kg (02/22/14 7:36 AM) Problem List Condition Effective Dates Status Health Status Informant Abdominal Active pain(Confirmed) Anxiety(Confirmed) Resolved Chest Active pain(Confirmed) Chronic back Resolved pain(Confirmed) Hyperlipidemia(Confi Active rmed) Hypertension(Confirm Active ed) Lesion(Confirmed)1 Resolved PUD - Peptic ulcer Active disease(Confirmed) 1biopsy R nare. Allergies, Adverse Reactions, Alerts Substance Reaction Severity Status NKDA Active Medications GI cocktail 30 mL, Route: PO, Dosing Weight 122.727, kg, ONCE, STAT, Start date: 02/22/14 7: 43:00, Stop date: 02/22/14 7:43:00 Start Date: 02/22/14 Stop Date: 02/22/14 Status: Completed Lomotil 0 Refill(s) Start Date: 02/22/14 Status: Ordered ondansetron 4 mg, Route: IVP, ONCE, Dosing Weight 122.727, kg, Priority: STAT, Start date: 1 7:43:00, Stop date: 02/22/14 7:43:00 Start Date: 02/22/14 Stop Date: 02/22/14 Status: Completed Phenergan 0 Refill(s) Start Date: 02/22/14 Status: Ordered Protonix 40 mg oral enteric coated tablet 40 mg=1 tab, PO, Daily, # 14 tab, 0 Refill(s) Start Date: 02/22/14 Status: Ordered Saline Flush 0.9% 10 mL, Route: IVP, Drug Form: INJ, Dosing Weight 122.727, kg, PRN, PRN Line Flus h, Start date: 02/22/14 7:43:00, Duration: 30 day, Stop date: 03/24/14 6:42:00 Notes: (Same as: BD Posiflush) Start Date: 02/22/14 Stop Date: 02/22/14 Status: Discontinued Sodium Chloride 0.9% (Bolus) IV 1,000 mL, Infuse Over: 1 hr, Route: IV, ONCE, Priority: STAT, Dosing Weight 122. 727 kg, Start date: 02/22/14 7:43:00, Duration: 1 doses or times, Stop date: 7:43:00 Start Date: 02/22/14 Stop Date: 02/22/14 Status: Completed trazodone 0 Refill(s) Start Date: 02/22/14 Status: Ordered Zofran ODT 4 mg oral tablet, disintegrating 4 mg=1 tab, PO, Q6H, nausea, # 10 tab, 0 Refill(s) Start Date: 02/22/14 Status: Ordered Results ELECTROLYTES Most recent to 1 oldest [Reference Range]: Sodium Lvl [135-145 139 mEq/L mEq/L] (02/22/14 7:54 AM) Potassium Lvl 3.9 mEq/L [3.5-5.1 mEq/L] (02/22/14 7:54 AM) Chloride Lvl [95-109 104 mEq/L mEq/L] (02/22/14 7:54 AM) CO2 [24-32 mEq/L] 29 mEq/L (02/22/14 7:54 AM) AGAP [10.0-20.0 9.9 mEq/L mEq/L] *LOW* (02/22/14 7:54 AM) CHEM PANEL Most recent to 1 oldest [Reference Range]: Creatinine Lvl 1.3 mg/dL [0.5-1.4 mg/dL] (02/22/14 7:54 AM) eGFR 68 mL/min/1.73m2 1 *NA* (02/22/14 7:54 AM) BUN [7-22 mg/dL] 8 mg/dL (02/22/14 7:54 AM) B/C Ratio [6-25] 6 (02/22/14 7:54 AM) Glucose Lvl [70-99 93 mg/dL 2 mg/dL] (02/22/14 7:54 AM) Total Protein 7.2 g/dL [6.4-8.4 g/dL] (02/22/14 7:54 AM) Albumin Lvl [3.5-5.0 3.7 g/dL g/dL] (02/22/14 7:54 AM) Globulin [2.0-4.0 3.5 g/dL g/dL] (02/22/14 7:54 AM) A/G Ratio [0.7-1.6] 1.1 (02/22/14 7:54 AM) Calcium Lvl 8.6 mg/dL [8.5-10.5 mg/dL] (02/22/14 7:54 AM) ALT [0-65 unit/L] 49 unit/L (02/22/14 7:54 AM) AST [0-37 unit/L] 27 unit/L (02/22/14 7:54 AM) Alk Phos [39-136 85 unit/L unit/L] (02/22/14 7:54 AM) Bili Total [0.2-1.3 0.6 mg/dL mg/dL] (02/22/14 7:54 AM) Lipase Lvl [73-393 132 unit/L unit/L] (02/22/14 7:54 AM) 1Result Comment: The eGFR is calculated using [...] values reflect the clinical guidelines of the [place] [employer]. URINE AND STOOL Most recent to 1 oldest [Reference Range]: UA Turbidity [Clear] Clear (02/22/14 7:54 AM) UA Color [Yellow] Yellow *NA* (02/22/14 7:54 AM) UA pH [5.0-8.0] 6.0 (02/22/14 7:54 AM) UA Spec Grav 1.010 [<=1.030] (02/22/14 7:54 AM) UA Glucose Negative [Negative] (02/22/14 7:54 AM) UA Blood [Negative] Trace *ABN* (02/22/14 7:54 AM) UA Ketones Negative [Negative] *NA* (02/22/14 7:54 AM) UA Protein Negative [Negative] (02/22/14 7:54 AM) UA Urobilinogen 0.2 EU/dL [0.1-1.0 EU/dL] (02/22/14 7:54 AM) UA Bili [Negative] Negative *NA* (02/22/14 7:54 AM) UA Leuk Est Negative [Negative] (02/22/14 7:54 AM) UA Nitrite Negative [Negative] (02/22/14 7:54 AM) UA WBC [None Seen] None Seen (02/22/14 7:54 AM) UA RBC [0-2 /HPF] 0-2 /HPF (02/22/14 7:54 AM) UA Bacteria [None Occasional /HPF Seen /HPF] (02/22/14 7:54 AM) UA Sq Epi [Few /LPF] Occasional /LPF (02/22/14 7:54 AM) HEMATOLOGY Most recent to 1 oldest [Reference Range]: WBC [3.7-10.4 K/CMM] 7.2 K/CMM (02/22/14 7:54 AM) RBC [4.70-6.10 4.83 M/CMM M/CMM] (02/22/14 7:54 AM) Hgb [14.0-18.0 g/dL] 14.8 g/dL (02/22/14 7:54 AM) Hct [42.0-54.0 %] 45.4 % (02/22/14 7:54 AM) MCV [80.0-94.0 fL] 94.0 fL (02/22/14 7:54 AM) MCH [27.0-31.0 pg] 30.7 pg (02/22/14 7:54 AM) MCHC [32.0-36.0 32.7 g/dL g/dL] (02/22/14 7:54 AM) RDW [11.5-14.5 %] 14.5 % (02/22/14 7:54 AM) Platelet [133-450 296 K/CMM K/CMM] (02/22/14 7:54 AM) MPV [7.4-10.4 fL] 7.7 fL (02/22/14 7:54 AM) Segs [45.0-75.0 %] 65.3 % (02/22/14 7:54 AM) Lymphocytes 21.8 % [20.0-40.0 %] (02/22/14 7:54 AM) Monocytes [2.0-12.0 8.3 % %] (02/22/14 7:54 AM) Eosinophils [0.0-4.0 4.0 % %] (02/22/14 7:54 AM) Basophils [0.0-1.0 0.6 % %] (02/22/14 7:54 AM) Segs-Bands # 4.7 K/CMM [1.5-8.1 K/CMM] (02/22/14 7:54 AM) Lymphocytes # 1.6 K/CMM [1.0-5.5 K/CMM] (02/22/14 7:54 AM) Monocytes # [0.0-0.8 0.6 K/CMM K/CMM] (02/22/14 7:54 AM) Eosinophils # 0.3 K/CMM [0.0-0.5 K/CMM] (02/22/14 7:54 AM) Medications Administered During Your Visit No data [...]
--- OUTSIDE RECORDS SUMMARY | 2018-06-17 06:45 | XMS REPORT | Summary of Care ---
Author Author [facility] Organization [facility] Address Unknown Phone Unavailable Encounter JAMESON Harden(BERNARD) [id number] Date(s): 09/13/15 - 09/13/15 [facility] [address] [place] [address]- [place] [phone] Discharge Disposition: Non-Emergent Attending Physician: Clayton Nevarez MD Vital Signs Most recent to 1 oldest [Reference Range]: Height 193.04 cm (09/13/15 12:31 PM) Temperature Oral 98.0 DegF [96.4-99.1 DegF] (09/13/15 12:31 PM) Blood Pressure 136/79 mmHg [90-140/60-90 mmHg] (09/13/15 12:31 PM) Respiratory Rate 18 BRMIN [14-20 BRMIN] (09/13/15 12:31 PM) Peripheral Pulse 98 bpm Rate [60-100 bpm] (09/13/15 12:31 PM) Weight 120.455 kg (09/13/15 12:31 PM) Body Mass Index 32.32 m2 (09/13/15 12:31 PM) Problem List Condition Effective Dates Status Health Status Informant Abdominal Active pain(Confirmed) Anxiety(Confirmed) Resolved Chest Active pain(Confirmed) Chronic back Resolved pain(Confirmed) Hyperlipidemia(Confi Active rmed) Hypertension(Confirm Active ed) Lesion(Confirmed)1 Resolved PUD - Peptic ulcer Active disease(Confirmed) 1biopsy R nare. Allergies, Adverse Reactions, Alerts Substance Reaction Severity Status amoxicillin Active Medications morphine Sulfate 4 mg, Route: IM, Drug form: INJ, ONCE, Dosing Weight 120.455, kg, Priority: STAT , Start date: 09/13/15 14:17:00 CDT, Stop date: 09/13/15 14:17:00 CDT Start Date: 09/13/15 Stop Date: 09/13/15 Status: Discontinued Valium 5 mg, Route: PO, ONCE, Dosing Weight 120.455, kg, Priority: STAT, Start date: 14:17:00 CDT, Stop date: 09/13/15 14:17:00 CDT Start Date: 09/13/15 Stop Date: 09/13/15 Status: Discontinued Results No data available for this section [...]
--- OUTSIDE RECORDS SUMMARY | 2018-06-17 06:45 | XMS REPORT | Summary of Care ---
Author Author [facility] Organization [facility] Address Unknown Phone Unavailable Encounter JAMESON Harden(BERNARD) [id number] Date(s): 12/28/14 - 12/28/14 [facility] [address] [place] [address]- [phone] Discharge Diagnosis: Contusion of finger Discharge Disposition: Home Attending Physician: Amilcar Freire MD Vital Signs Most recent to 1 2 oldest [Reference Range]: Temperature Oral 97.6 DegF 97.6 DegF [96.4-99.1 DegF] (12/28/14 10:50 PM) (12/28/14 8:39 PM) Most recent to 1 2 oldest [Reference Range]: Blood Pressure 158/95 mmHg [90-140/60-90 mmHg] *HI* (12/28/14 8:39 PM) Most recent to 1 2 oldest [Reference Range]: Respiratory Rate 16 BRMIN 16 BRMIN [14-20 BRMIN] (12/28/14 10:50 PM) (12/28/14 8:39 PM) Most recent to 1 2 oldest [Reference Range]: Peripheral Pulse 89 bpm 91 bpm Rate [60-100 bpm] (12/28/14 10:50 PM) (12/28/14 8:39 PM) Most recent to 1 2 oldest [Reference Range]: Weight 90.909 kg (12/28/14 8:39 PM) Problem List Condition Effective Dates Status Health Status Informant Abdominal Active pain(Confirmed) Anxiety(Confirmed) Resolved Chest Active pain(Confirmed) Chronic back Resolved pain(Confirmed) Hyperlipidemia(Confi Active rmed) Hypertension(Confirm Active ed) Lesion(Confirmed)1 Resolved PUD - Peptic ulcer Active disease(Confirmed) 1biopsy R nare. Allergies, Adverse Reactions, Alerts Substance Reaction Severity Status amoxicillin Active Medications Naprosyn 500 mg oral tablet 500 mg=1 tab, PO, BID, # 30 tab, 0 Refill(s) Start Date: 12/28/14 Status: Ordered [place] 7.5/325 oral tablet 1 tab, Route: PO, Drug Form: TAB, Dosing Weight 90.909, kg, ONCE, STAT, Start da te: 12/28/14 20:59:00, Stop date: 12/28/14 20:59:00 Start Date: 12/28/14 Stop Date: 12/28/14 Status: Completed Results No data available for [...]
--- OUTSIDE RECORDS SUMMARY | 2018-06-17 06:45 | XMS REPORT | Summary of Care ---
Author Author [facility] Organization [facility] Address Unknown Phone Unavailable Encounter JAMESON Harden(BERNARD) [id number] Date(s): 03/11/16 - 03/12/16 [facility] [address] [place] [address]- [phone] Discharge Diagnosis: Insect bite of cheek Discharge Disposition: Home or Self Care Attending Physician: Tammi Adan MD Vital Signs Most recent to 1 2 oldest [Reference Range]: Height 182.88 cm (03/11/16 7:52 PM) Temperature Oral 98 DegF 98.2 DegF [96.4-99.1 DegF] (03/12/16 12:36 AM) (03/11/16 7:52 PM) Blood Pressure 100/76 mmHg 124/73 mmHg [90-140/60-90 mmHg] (03/12/16 12:36 AM) (03/11/16 7:52 PM) Respiratory Rate 16 BRMIN 18 BRMIN [14-20 BRMIN] (03/12/16 12:36 AM) (03/11/16 7:52 PM) Peripheral Pulse 56 bpm 78 bpm Rate [60-100 bpm] *LOW* (03/11/16 7:52 PM) (03/12/16 12:36 AM) Weight 111.364 kg (03/11/16 7:52 PM) Body Mass Index 33.3 m2 (03/11/16 7:52 PM) Problem List Condition Effective Dates Status Health Status Informant Abdominal Active pain(Confirmed) Anxiety(Confirmed) Resolved Chest Active pain(Confirmed) Chronic back Resolved pain(Confirmed) Hyperlipidemia(Confi Active rmed) Hypertension(Confirm Active ed) Lesion(Confirmed)1 Resolved PUD - Peptic ulcer Active disease(Confirmed) 1biopsy R nare. Allergies, Adverse Reactions, Alerts Substance Reaction Severity Status amoxicillin Active Medications Bactrim DS 800 mg- 160 mg oral tablet 1 tab, PO, BID, X 10 day, # 20 tab, 0 Refill(s) Start Date: 03/12/16 Stop Date: 03/22/16 Status: Ordered Bactrim DS 800 mg- 160 mg oral tablet 1 tab, Route: PO, Drug Form: TAB, Dosing Weight 111.364, kg, ONCE, Start date: 1 05/12/15 0:19:00 CDT, Stop date: 03/12/16 0:19:00 CDT Notes: One DS tablet=trimethoprim 160mg + sulfamethoxazole 800 mgDose based on t rimethoprim component On empty stomach with a glass of water. 1 hr before meal s (Same As: Bactrim DS, Septra DS) Start Date: 03/12/16 Stop Date: 03/12/16 Status: Completed Results No data available for [...]
--- OUTSIDE RECORDS SUMMARY | 2018-06-17 06:45 | XMS REPORT | Summary of Care ---
Author Author [facility] Organization [facility] Address Unknown Phone Unavailable Encounter JAMESON Harden(BERNARD) [id number] Date(s): 01/18/15 - 01/19/15 [facility] [address] [place] [address]- Discharge Diagnosis: Rash Discharge Disposition: Home Attending Physician: Darren Mcmullen MD Vital Signs Most recent to 1 oldest [Reference Range]: Height 182.88 cm (01/18/15 11:59 PM) Most recent to 1 oldest [Reference Range]: Temperature Oral 98.1 DegF [96.4-99.1 DegF] (01/18/15 11:59 PM) Most recent to 1 oldest [Reference Range]: Blood Pressure 146/90 mmHg [90-140/60-90 mmHg] *HI* (01/18/15 11:59 PM) Most recent to 1 oldest [Reference Range]: Respiratory Rate 18 BRMIN [14-20 BRMIN] (01/18/15 11:59 PM) Most recent to 1 oldest [Reference Range]: Peripheral Pulse 70 bpm Rate [60-100 bpm] (01/18/15 11:59 PM) Most recent to 1 oldest [Reference Range]: Weight 143.182 kg (01/18/15 11:59 PM) Most recent to 1 oldest [Reference Range]: Body Mass Index 42.81 m2 (01/18/15 11:59 PM) Problem List Condition Effective Dates Status Health Status Informant Abdominal Active pain(Confirmed) Anxiety(Confirmed) Resolved Chest Active pain(Confirmed) Chronic back Resolved pain(Confirmed) Hyperlipidemia(Confi Active rmed) Hypertension(Confirm Active ed) Lesion(Confirmed)1 Resolved PUD - Peptic ulcer Active disease(Confirmed) 1biopsy R nare. Allergies, Adverse Reactions, Alerts Substance Reaction Severity Status amoxicillin Active Medications triamcinolone topical 0.1% cream 1 appl, TOP, TID, PRN For rash, X 7 day, # 15 gm, 0 Refill(s) Start Date: 01/19/15 Stop Date: 01/26/15 Status: Ordered Results No data available for [...]
--- OUTSIDE RECORDS SUMMARY | 2018-06-17 06:45 | XMS REPORT | Summary of Care ---
Author Organization Unknown Address Unknown Phone Unavailable Encounter JAMESON Harden(BERNARD) [id number] Date(s): 02/23/14 - 02/23/14 [facility] [address] [place] Discharge Diagnosis: Abdominal pain Discharge Diagnosis: Vomiting in adult Discharge Disposition: Home Physician Attending: Clint Villagomez DO Reason for Visit BODY ACHES Vital Signs 1 2 3 Most recent to oldest [Reference Range]: 193.04 cm (02/23/14 5:41 AM) Height 98.4 DegF (02/23/14 6:00 AM) 97.7 DegF (02/23/14 5:41 AM) Temperature Oral [96.4-99.1 DegF] 130 mmHg (02/23/14 10:00 AM) 135 mmHg (02/23/14 9:04 AM) 134 mmHg (02/23/14 8:26 AM) Systolic Blood Pressure [90-140 mmHg] 74 mmHg (02/23/14 10:00 AM) 75 mmHg (02/23/14 9:04 AM) 81 mmHg (02/23/14 8:26 AM) Diastolic Blood Pressure [60-90 mmHg] 27 BRMIN *HI* (02/23/14 10:00 AM) 29 BRMIN *HI* (02/23/14 9:04 AM) 22 BRMIN *HI* (02/23/14 8:26 AM) Respiratory Rate [14-20 BRMIN] 69 bpm (02/23/14 6:00 AM) 67 bpm (02/23/14 5:41 AM) Peripheral Pulse Rate [60-100 bpm] 122.727 kg (02/23/14 5:41 AM) Weight 32.93 m2 (02/23/14 5:41 AM) Body Mass Index Problem List Condition Effective Dates Status Health Status Informant Abdominal Active pain(Confirmed) Anxiety(Confirmed) Resolved Chest Active pain(Confirmed) Chronic back Resolved pain(Confirmed) Hyperlipidemia(Confi Active rmed) Hypertension(Confirm Active ed) Lesion(Confirmed)1 Resolved PUD - Peptic ulcer Active disease(Confirmed) 1biopsy R ronit. Allergies, Adverse Reactions, Alerts Substance Reaction Severity Status NKDA Active Medications Bentyl 20 mg, 1 tab, Route: PO, Drug form: TAB, ONCE, Dosing Weight 122.727, kg, Start date: 02/23/14 7:28:00, Stop date: 02/23/14 7:28:00 Notes: (Same as: Bentyl) Start Date: 02/23/14 Stop Date: 02/23/14 Status: Completed Bentyl 20 mg oral tablet 20 mg=1 tab, PO, QID, # 40 tab, 0 Refill(s) Start Date: 02/23/14 Stop Date: 03/05/14 Status: Ordered GI cocktail 30 mL, Route: PO, Drug Form: SUSP, Dosing Weight 122.727, kg, ONCE, STAT, Start date: 02/23/14 6:30:00, Stop date: 02/23/14 6:30:00 Notes: G.I. Cocktail=antacid with simethicone 22.5 mL - lidocaine viscous 7.5 mL Start Date: 02/23/14 Stop Date: 02/23/14 Status: Completed normal saline 0.9% IV 1,000 mL 1,000 mL, Rate: 1,000 ml/hr, Infuse over: 1 hr, Route: IV, Dosing Weight 122.727 kg, Total Volume: 1,000, Priority: STAT, Start date: 02/23/14 7:11:00, Duration: 1 doses or times, Stop date: 02/23/14 12:10:00 Start Date: 02/23/14 Stop Date: 02/23/14 Status: Completed Protonix 40 mg, 1 tab, Route: PO, Drug form: ECTAB, ONCE, Dosing Weight 122.727, kg, Prio rity: STAT, Start date: 02/23/14 7:28:00, Stop date: 02/23/14 7:28:00 Notes: Tablet should not be chewed or crushed.(Same as: Protonix) Start Date: 02/23/14 Stop Date: 02/23/14 Status: Completed Zofran ODT 4 mg, 1 tab, Route: PO, Drug form: TABDIS, ONCE, Dosing Weight 122.727, kg, Prio rity: STAT, Start date: 02/23/14 6:30:00, Stop date: 02/23/14 6:30:00 Notes: (Same as: Zofran ODT) Start Date: 02/23/14 Stop Date: 02/23/14 Status: Completed Results ELECTROLYTES Most recent to 1 oldest [Reference Range]: Sodium Lvl [135-145 140 mEq/L mEq/L] (02/23/14 6:38 AM) Potassium Lvl 3.9 mEq/L [3.5-5.1 mEq/L] (02/23/14 6:38 AM) Chloride Lvl [95-109 105 mEq/L mEq/L] (02/23/14 6:38 AM) CO2 [24-32 mEq/L] 28 mEq/L (02/23/14 6:38 AM) AGAP [10.0-20.0 10.9 mEq/L mEq/L] (02/23/14 6:38 AM) CHEM PANEL Most recent to 1 oldest [Reference Range]: Creatinine Lvl 1.3 mg/dL [0.5-1.4 mg/dL] (02/23/14 6:38 AM) eGFR 66 mL/min/1.73m2 1 *NA* (02/23/14 6:38 AM) BUN [7-22 mg/dL] 7 mg/dL (02/23/14 6:38 AM) B/C Ratio [6-25] 5 *LOW* (02/23/14 6:38 AM) Glucose Lvl [70-99 94 mg/dL 2 mg/dL] (02/23/14 6:38 AM) Total Protein 7.1 g/dL [6.4-8.4 g/dL] (02/23/14 6:38 AM) Albumin Lvl [3.5-5.0 3.7 g/dL g/dL] (02/23/14 6:38 AM) Globulin [2.0-4.0 3.4 g/dL g/dL] (02/23/14 6:38 AM) A/G Ratio [0.7-1.6] 1.1 (02/23/14 6:38 AM) Calcium Lvl 8.8 mg/dL [8.5-10.5 mg/dL] (02/23/14 6:38 AM) ALT [0-65 unit/L] 42 unit/L (02/23/14 6:38 AM) AST [0-37 unit/L] 26 unit/L (02/23/14 6:38 AM) Alk Phos [39-136 85 unit/L unit/L] (02/23/14 6:38 AM) Bili Total [0.2-1.3 0.4 mg/dL mg/dL] (02/23/14 6:38 AM) Lipase Lvl [73-393 110 unit/L unit/L] (02/23/14 6:38 AM) 1Result Comment: The eGFR is calculated [...] values reflect the clinical guidelines of the [employer] [employer]. HEMATOLOGY Most recent to 1 oldest [Reference Range]: WBC [3.7-10.4 K/CMM] 8.5 K/CMM (02/23/14 6:38 AM) RBC [4.70-6.10 4.55 M/CMM M/CMM] *LOW* (02/23/14 6:38 AM) Hgb [14.0-18.0 g/dL] 14.2 g/dL (02/23/14 6:38 AM) Hct [42.0-54.0 %] 42.5 % (02/23/14 6:38 AM) MCV [80.0-94.0 fL] 93.3 fL (02/23/14 6:38 AM) MCH [27.0-31.0 pg] 31.3 pg *HI* (02/23/14 6:38 AM) MCHC [32.0-36.0 33.5 g/dL g/dL] (02/23/14 6:38 AM) RDW [11.5-14.5 %] 14.4 % (02/23/14 6:38 AM) Platelet [133-450 302 K/CMM K/CMM] (02/23/14 6:38 AM) MPV [7.4-10.4 fL] 8.0 fL (02/23/14 6:38 AM) Segs [45.0-75.0 %] 69.3 % (02/23/14 6:38 AM) Lymphocytes 20.2 % [20.0-40.0 %] (02/23/14 6:38 AM) Monocytes [2.0-12.0 8.0 % %] (02/23/14 6:38 AM) Eosinophils [0.0-4.0 2.0 % %] (02/23/14 6:38 AM) Basophils [0.0-1.0 0.5 % %] (02/23/14 6:38 AM) Segs-Bands # 5.9 K/CMM [1.5-8.1 K/CMM] (02/23/14 6:38 AM) Lymphocytes # 1.7 K/CMM [1.0-5.5 K/CMM] (02/23/14 6:38 AM) Monocytes # [0.0-0.8 0.7 K/CMM K/CMM] (02/23/14 6:38 AM) Eosinophils # 0.2 K/CMM [0.0-0.5 K/CMM] (02/23/14 6:38 AM) VIRAL - SEROLOGY Most recent to 1 oldest [Reference Range]: Influ A [Negative] Negative (02/23/14 6:45 AM) Influ B [Negative] Negative 3 (02/23/14 6:45 AM) 3Interpretive Data: Influenza A&B Antigen: Due to [...]
--- OUTSIDE RECORDS SUMMARY | 2018-06-17 06:45 | XMS REPORT | Summary of Care ---
Author Author [facility] Organization [facility] Address Unknown Phone Unavailable Encounter JAMESON Harden(BERNARD) [id number] Date(s): 03/19/15 - 03/19/15 [facility] [address] [place] [address]- Discharge Diagnosis: Facial rash Discharge Disposition: Home Attending Physician: Sanjeev Martinez MD Vital Signs Most recent to 1 2 oldest [Reference Range]: Height 193.04 cm (03/19/15 5:39 PM) Temperature Oral 97.7 DegF 97.7 DegF [96.4-99.1 DegF] (03/19/15 6:51 PM) (03/19/15 5:39 PM) Blood Pressure 120/80 mmHg 150/88 mmHg [90-140/60-90 mmHg] (03/19/15 6:51 PM) *HI* (03/19/15 5:39 PM) Respiratory Rate 18 BRMIN 18 BRMIN [14-20 BRMIN] (03/19/15 6:51 PM) (03/19/15 5:39 PM) Peripheral Pulse 72 bpm 72 bpm Rate [60-100 bpm] (03/19/15 6:51 PM) (03/19/15 5:39 PM) Weight 118.182 kg (03/19/15 5:39 PM) Body Mass Index 31.71 m2 (03/19/15 5:39 PM) Problem List Condition Effective Dates Status Health Status Informant Abdominal Active pain(Confirmed) Anxiety(Confirmed) Resolved Chest Active pain(Confirmed) Chronic back Resolved pain(Confirmed) Hyperlipidemia(Confi Active rmed) Hypertension(Confirm Active ed) Lesion(Confirmed)1 Resolved PUD - Peptic ulcer Active disease(Confirmed) 1biopsy R nare. Allergies, Adverse Reactions, Alerts Substance Reaction Severity Status amoxicillin Active Medications doxycycline hyclate 100 mg oral capsule 100 mg=1 cap, PO, Q12H, X 21 day, # 42 cap, 0 Refill(s) Start Date: 03/19/15 Stop Date: 04/09/15 Status: Ordered Results No data available for [...]
--- OUTSIDE RECORDS SUMMARY | 2018-06-17 06:45 | XMS REPORT | Summary of Care ---
Author Author [facility] Organization [facility] Address Unknown Phone Unavailable Encounter JAMESON Harden(BERNARD) [id number] Date(s): 01/18/15 - 01/18/15 [facility] [address] [employer] [facility] [place] [address]- Discharge Disposition: Not Seen Attending Physician: Elizabeth Vidal MD Vital Signs Most recent to 1 2 oldest [Reference Range]: Height 193.04 cm (01/18/15 8:11 PM) Most recent to 1 2 oldest [Reference Range]: Temperature Oral 97.4 DegF 98.0 DegF [96.4-99.1 DegF] (01/18/15 10:38 PM) (01/18/15 8:11 PM) Most recent to 1 2 oldest [Reference Range]: Blood Pressure 117/75 mmHg 121/78 mmHg [90-140/60-90 mmHg] (01/18/15 10:38 PM) (01/18/15 8:11 PM) Most recent to 1 2 oldest [Reference Range]: Respiratory Rate 18 BRMIN 18 BRMIN [14-20 BRMIN] (01/18/15 10:38 PM) (01/18/15 8:11 PM) Most recent to 1 2 oldest [Reference Range]: Peripheral Pulse 68 bpm 77 bpm Rate [60-100 bpm] (01/18/15 10:38 PM) (01/18/15 8:11 PM) Most recent to 1 2 oldest [Reference Range]: Weight 109.091 kg (01/18/15 8:11 PM) Most recent to 1 2 oldest [Reference Range]: Body Mass Index 29.27 m2 (01/18/15 8:11 PM) Problem List Condition Effective Dates Status Health Status Informant Abdominal Active pain(Confirmed) Anxiety(Confirmed) Resolved Chest Active pain(Confirmed) Chronic back Resolved pain(Confirmed) Hyperlipidemia(Confi Active rmed) Hypertension(Confirm Active ed) Lesion(Confirmed)1 Resolved PUD - Peptic ulcer Active disease(Confirmed) 1biopsy R nare. Allergies, Adverse Reactions, Alerts Substance Reaction Severity Status amoxicillin Active Medications No data available for this section Results No data available for this section [...]
--- OUTSIDE RECORDS SUMMARY | 2018-06-17 06:45 | XMS REPORT | Summary of Care ---
Author Author [facility] Organization [facility] Address Unknown Phone Unavailable Encounter JAMESON Harden(BERNARD) [id number] Date(s): 05/01/15 - 05/02/15 [facility] [address] [place] [address]- Discharge Diagnosis: Rash Discharge Diagnosis: Chest pain at rest Discharge Disposition: Home Attending Physician: Lisa Masters MD Vital Signs Most recent to 1 2 oldest [Reference Range]: Height 187.96 cm (05/01/15 6:35 PM) Temperature Oral 98 DegF 97.8 DegF [96.4-99.1 DegF] (05/02/15 12:00 AM) (05/01/15 6:35 PM) Blood Pressure 121/64 mmHg 151/81 mmHg [90-140/60-90 mmHg] (05/02/15 12:00 AM) *HI* (05/01/15 6:35 PM) Respiratory Rate 18 BRMIN 18 BRMIN [14-20 BRMIN] (05/02/15 12:00 AM) (05/01/15 6:35 PM) Peripheral Pulse 63 bpm 81 bpm Rate [60-100 bpm] (05/02/15 12:00 AM) (05/01/15 6:35 PM) Weight 118.182 kg (05/01/15 6:35 PM) Body Mass Index 33.45 m2 (05/01/15 6:35 PM) Problem List Condition Effective Dates Status Health Status Informant Abdominal Active pain(Confirmed) Anxiety(Confirmed) Resolved Chest Active pain(Confirmed) Chronic back Resolved pain(Confirmed) Hyperlipidemia(Confi Active rmed) Hypertension(Confirm Active ed) Lesion(Confirmed)1 Resolved PUD - Peptic ulcer Active disease(Confirmed) 1biopsy R nare. Allergies, Adverse Reactions, Alerts Substance Reaction Severity Status amoxicillin Active Medications morphine Sulfate 4 mg, Route: IVP, Drug form: INJ, ONCE, Dosing Weight 118.182, kg, Priority: STA T, Start date: 05/01/15 22:41:00, Stop date: 05/01/15 22:41:00 Start Date: 05/01/15 Stop Date: 05/01/15 Status: Discontinued morphine Sulfate 4 mg, 2 mL, Route: IVP, Drug form: INJ, ONCE, Dosing Weight 118.182, kg, Start d ate: 05/01/15 22:42:00, Stop date: 05/01/15 22:42:00 Notes: (Same as:MORPhine Sulfate) Start Date: 05/01/15 Stop Date: 05/01/15 Status: Completed Saline Flush 0.9% 10 mL, Route: IVP, Drug Form: INJ, Dosing Weight 118.182, kg, PRN, PRN Line Flus h, Start date: 05/01/15 21:36:00, Duration: 30 day, Stop date: 05/31/15 21:35:00 Notes: (Same as: BD Posiflush) Start Date: 05/01/15 Stop Date: 05/02/15 Status: Discontinued Zofran 4 mg, 2 mL, Route: IVP, Drug form: INJ, ONCE, Dosing Weight 118.182, kg, Start d ate: 05/01/15 22:42:00, Stop date: 05/01/15 22:42:00 Notes: (Same as: Zofran) MEDICATION WASTE Product Size: 4 mgProduct Was aadm: ___ mg Start Date: 05/01/15 Stop Date: 05/01/15 Status: Completed Zofran 4 mg, Route: IVP, Drug form: INJ, ONCE, Dosing Weight 118.182, kg, Priority: STA T, Start date: 05/01/15 22:41:00, Stop date: 05/01/15 22:41:00 Start Date: 05/01/15 Stop Date: 05/01/15 Status: Discontinued Results ELECTROLYTES Most recent to 1 oldest [Reference Range]: Sodium Lvl [135-145 140 mEq/L mEq/L] (05/01/15 10:18 PM) Potassium Lvl 3.8 mEq/L [3.5-5.1 mEq/L] (05/01/15 10:18 PM) Chloride Lvl [95-109 104 mEq/L mEq/L] (05/01/15 10:18 PM) CO2 [24-32 mEq/L] 32 mEq/L (05/01/15 10:18 PM) AGAP [10.0-20.0 7.8 mEq/L mEq/L] *LOW* (05/01/15 10:18 PM) CHEM PANEL Most recent to 1 oldest [Reference Range]: Creatinine Lvl 1.24 mg/dL [0.50-1.40 mg/dL] (05/01/15 10:18 PM) eGFR 69 mL/min/1.73m2 1 *NA* (05/01/15 10:18 PM) BUN [7-22 mg/dL] 17 mg/dL (05/01/15 10:18 PM) B/C Ratio [6-25] 14 (05/01/15 10:18 PM) Glucose Lvl [70-99 78 mg/dL mg/dL] (05/01/15 10:18 PM) Total Protein 6.8 g/dL [6.4-8.4 g/dL] (05/01/15 10:18 PM) Albumin Lvl [3.5-5.0 3.4 g/dL g/dL] *LOW* (05/01/15 10:18 PM) Globulin [2.0-4.0 3.4 g/dL g/dL] (05/01/15 10:18 PM) A/G Ratio [0.7-1.6] 1.0 (05/01/15 10:18 PM) Calcium Lvl 8.3 mg/dL [8.5-10.5 mg/dL] *LOW* (05/01/15 10:18 PM) ALT [0-65 unit/L] 35 unit/L (05/01/15 10:18 PM) AST [0-37 unit/L] 15 unit/L (05/01/15 10:18 PM) Alk Phos [39-136 87 unit/L unit/L] (05/01/15 10:18 PM) Bili Total [0.2-1.3 0.2 mg/dL mg/dL] (05/01/15 10:18 PM) 1Result Comment: The eGFR is calculated [...] be mul tiplied by the estimated BMI. CARDIAC ENZYMES Most recent to 1 oldest [Reference Range]: Total CK [12-191 197 unit/L unit/L] *HI* (05/01/15 10:18 PM) CK MB [0.5-3.6 2.0 ng/mL ng/mL] (05/01/15 10:18 PM) CK MB Index 1.0 [0.0-2.5] (05/01/15 10:18 PM) Troponin-I <0.02 ng/mL [0.00-0.40 ng/mL] (05/01/15 10:18 PM) BNP [<=100 pg/mL] 6 pg/mL (05/01/15 10:18 PM) HEMATOLOGY Most recent to 1 oldest [Reference Range]: WBC [3.7-10.4 K/CMM] 9.4 K/CMM (05/01/15 10:18 PM) RBC [4.70-6.10 4.61 M/CMM M/CMM] *LOW* (05/01/15 10:18 PM) Hgb [14.0-18.0 g/dL] 13.9 g/dL *LOW* (05/01/15 10:18 PM) Hct [42.0-54.0 %] 43.1 % (05/01/15 10:18 PM) MCV [80.0-94.0 fL] 93.5 fL (05/01/15 10:18 PM) MCH [27.0-31.0 pg] 30.2 pg (05/01/15 10:18 PM) MCHC [32.0-36.0 32.3 g/dL g/dL] (05/01/15 10:18 PM) RDW [11.5-14.5 %] 14.0 % (05/01/15 10:18 PM) Platelet [133-450 266 K/CMM K/CMM] (05/01/15 10:18 PM) MPV [7.4-10.4 fL] 8.1 fL (05/01/15 10:18 PM) Segs [45.0-75.0 %] 47.6 % (05/01/15 10:18 PM) Lymphocytes 35.6 % [20.0-40.0 %] (05/01/15 10:18 PM) Monocytes [2.0-12.0 11.4 % %] (05/01/15 10:18 PM) Eosinophils [0.0-4.0 4.5 % %] *HI* (05/01/15 10:18 PM) Basophils [0.0-1.0 0.9 % %] (05/01/15 10:18 PM) Segs-Bands # 4.5 K/CMM [1.5-8.1 K/CMM] (05/01/15 10:18 PM) Lymphocytes # 3.4 K/CMM [1.0-5.5 K/CMM] (05/01/15 10:18 PM) Monocytes # [0.0-0.8 1.1 K/CMM K/CMM] *HI* (05/01/15 10:18 PM) Eosinophils # 0.4 K/CMM [0.0-0.5 K/CMM] (05/01/15 10:18 PM) Basophils # [0.0-0.2 0.1 K/CMM K/CMM] (05/01/15 10:18 PM) Immunizations No data available for this section [...]
--- OUTSIDE RECORDS SUMMARY | 2018-06-17 06:45 | XMS REPORT | Summary of Care ---
Author Author [facility] Organization [facility] Address Unknown Phone Unavailable Encounter JAMESON Harden(BERNARD) [id number] Date(s): 08/22/15 - 08/22/15 [facility] [address] [place] [address]- U [place] [phone] Discharge Diagnosis: Strain of thoracic region Discharge Disposition: Home Attending Physician: Amanda Mejía MD Vital Signs 1 2 3 Most recent to oldest [Reference Range]: 193.04 cm (08/22/15 3:37 PM) Height 98.1 DegF (08/22/15 6:58 PM) 98.1 DegF (08/22/15 5:22 PM) 98.4 DegF (08/22/15 3:37 PM) Temperature Oral [96.4-99.1 DegF] 109/67 mmHg (08/22/15 6:58 PM) 139/80 mmHg (08/22/15 5:22 PM) 138/81 mmHg (08/22/15 3:37 PM) Blood Pressure [90-140/60-90 mmHg] 18 BRMIN (08/22/15 6:58 PM) 18 BRMIN (08/22/15 5:22 PM) 18 BRMIN (08/22/15 3:37 PM) Respiratory Rate [14-20 BRMIN] 72 bpm (08/22/15 6:58 PM) 82 bpm (08/22/15 5:22 PM) 85 bpm (08/22/15 3:37 PM) Peripheral Pulse Rate [60-100 bpm] 118.182 kg (08/22/15 3:37 PM) Weight 31.71 m2 (08/22/15 3:37 PM) Body Mass Index Problem List Condition Effective Dates Status Health Status Informant Abdominal Active pain(Confirmed) Anxiety(Confirmed) Resolved Chest Active pain(Confirmed) Chronic back Resolved pain(Confirmed) Hyperlipidemia(Confi Active rmed) Hypertension(Confirm Active ed) Lesion(Confirmed)1 Resolved PUD - Peptic ulcer Active disease(Confirmed) 1biopsy R jaidene. Allergies, Adverse Reactions, Alerts Substance Reaction Severity Status amoxicillin Active Medications Flexeril 10 mg oral tablet 10 mg, PO, TID, PRN Muscle Spasm, X 10 day, # 30 tab, 0 Refill(s) Start Date: 08/22/15 Stop Date: 09/01/15 Status: Ordered ketOROLAC 60 mg, Route: IM, Drug form: INJ, ONCE, Dosing Weight 118.182, kg, Priority: STA T, Start date: 08/22/15 17:43:00 CDT, Stop date: 08/22/15 17:43:00 CDT Start Date: 08/22/15 Stop Date: 08/22/15 Status: Completed Lodine 300 mg oral capsule 300 mg=1 cap, PO, BID, PRN Pain, # 20 cap, 0 Refill(s) Start Date: 08/22/15 Status: Ordered Results No data available for [...]
--- OUTSIDE RECORDS SUMMARY | 2018-06-17 06:45 | XMS REPORT | Summary of Care ---
Author Author [facility] [place] Address Unknown Phone Unavailable Encounter HQ Sukhjinder_cyndi(FIN) [id number] Date(s): 06/15/15 - 06/15/15 [facility] Outpatient Imaging [place] [id number] [place], [place] [address]- [phone] Discharge Disposition: Home Attending Physician: Yg William MD Vital Signs No data available for this section Problem List Condition Effective Dates Status Health [...]
--- OUTSIDE RECORDS SUMMARY | 2018-06-17 06:45 | XMS REPORT | Summary of Care ---
Author Author [facility] Organization [facility] Address Unknown Phone Unavailable Encounter JAMESON Harden(BERNARD) [id number] Date(s): 09/03/15 - 09/03/15 [facility] [address] [place] [address]- U [phone] Discharge Disposition: Non-Emergent Attending Physician: Anibal Lima MD Vital Signs Most recent to 1 oldest [Reference Range]: Height 193.04 cm (09/03/15 3:58 PM) Temperature Oral 98.1 DegF [96.4-99.1 DegF] (09/03/15 3:58 PM) Blood Pressure 146/84 mmHg [90-140/60-90 mmHg] *HI* (09/03/15 3:58 PM) Respiratory Rate 18 BRMIN [14-20 BRMIN] (09/03/15 3:58 PM) Peripheral Pulse 98 bpm Rate [60-100 bpm] (09/03/15 3:58 PM) Weight 120.455 kg (09/03/15 3:58 PM) Body Mass Index 32.32 m2 (09/03/15 3:58 PM) Problem List Condition Effective Dates Status [...]
--- OUTSIDE RECORDS SUMMARY | 2018-06-17 06:46 | XMS REPORT | Summary of Care ---
Author Author [facility] Organization [facility] Address Unknown Phone Unavailable Encounter HQ Dereck(FIN) [id number] Date(s): 06/07/17 - 06/08/17 [facility] [address] [place] [address]- [facility] [[email or web address]] [phone] Encounter Diagnosis Food in esophagus causing other injury, initial encounter (Final) - 06/11/17 Duodenitis without bleeding (Final) - Other gastritis without bleeding (Final) - Hypo-osmolality and hyponatremia (Final) - Hypovolemia (Final) - Acute kidney failure, unspecified (Final) - Hyperlipidemia, unspecified (Final) - Essential (primary) hypertension (Final) - Gastro-esophageal reflux disease without esophagitis (Final) - Anxiety disorder, unspecified (Final) - Discharge Disposition: Home or Self Care Attending Physician: Luke Carson MD Admitting Physician: Luke Carson MD Vital Signs 1 2 3 Most recent to oldest [Reference Range]: 193.04 cm (06/08/17 2:47 AM) 193.04 cm (06/07/17 8:43 PM) Height 97.9 DegF (06/08/17 11:50 AM) 97.8 DegF (06/08/17 7:41 AM) 98 DegF (06/08/17 3:57 AM) Temperature Oral [96.4-99.1 DegF] 117/68 mmHg (06/08/17 11:50 AM) 117/69 mmHg (06/08/17 9:40 AM) 109/56 mmHg (06/08/17 9:25 AM) Blood Pressure [90-140/60-90 mmHg] 16 BRMIN (06/08/17 11:50 AM) 10 BRMIN *LOW* (06/08/17 9:40 AM) 26 BRMIN *HI* (06/08/17 9:25 AM) Respiratory Rate [14-20 BRMIN] 55 bpm *LOW* (06/08/17 8:45 AM) 58 bpm *LOW* (06/08/17 7:41 AM) 59 bpm *LOW* (06/08/17 3:57 AM) Peripheral Pulse Rate [60-100 bpm] 124.045 kg (06/08/17 2:47 AM) 122.727 kg (06/07/17 8:43 PM) Weight 33.29 m2 (06/08/17 2:47 AM) 32.93 m2 (06/07/17 8:43 PM) Body Mass Index Problem List Condition Effective Dates Status Health Status Informant Abdominal Active pain(Confirmed) Anxiety(Confirmed) Resolved Chest Active pain(Confirmed) Chronic back Resolved pain(Confirmed) Hyperlipidemia(Confi Active rmed) Hypertension(Confirm Active ed) PUD - Peptic ulcer Active disease(Confirmed) Allergies, Adverse Reactions, Alerts Substance Reaction Severity Status amoxicillin Active Medications glucagon 1 mg, Route: IM, Drug form: PDR/INJ, ONCE, Dosing Weight 122.727, kg, Priority: STAT, Start date: 06/07/17 22:05:00 SYSTEMS DEVELOPMENT MANAGER, Stop date: 06/07/17 22:05:00 SYSTEMS DEVELOPMENT MANAGER Start Date: 06/07/17 Stop Date: 06/07/17 Status: Completed glucagon 1 mg, Route: INJ, ONCE, Dosing Weight 124.045, kg, Start date: 06/08/17 8:58:00 SYSTEMS DEVELOPMENT MANAGER, Stop date: 06/08/17 8:58:00 SYSTEMS DEVELOPMENT MANAGER Start Date: 06/08/17 Stop Date: 06/08/17 Status: Completed heparin 5,000 unit, 1 mL, Route: SUB-Q, Drug form: INJ, Q12H, Dosing Weight 122.727, kg, Start date: 06/08/17 9:00:00 SYSTEMS DEVELOPMENT MANAGER, Stop date: 07/07/17 21:00:00 SYSTEMS DEVELOPMENT MANAGER Notes: porcine heparin Start Date: 06/08/17 Stop Date: 06/08/17 Status: Discontinued KlonoPIN PO, BID, 0 Refill(s) Start Date: 06/08/17 Status: Ordered morphine Sulfate 2 mg, 0.5 mL, Route: IVP, Drug form: SOLN, Q4H, Dosing Weight 122.727, kg, PRN P ain Score 7-10, Start date: 06/08/17 0:13:00 SYSTEMS DEVELOPMENT MANAGER, Duration: 30 day, Stop date: 0 07/08/17 0:12:00 SYSTEMS DEVELOPMENT MANAGER Notes: (Same as:MORPhine Sulfate) Start Date: 06/08/17 Stop Date: 06/08/17 Status: Discontinued morphine Sulfate 6 mg, 3 mL, Route: PO, Drug form: SOLN, Q4H, Dosing Weight 124.045, kg, PRN Pain Score 7-10, Start date: 06/08/17 14:45:00 SYSTEMS DEVELOPMENT MANAGER, Duration: 30 day, Stop date: 05/27 14:44:00 SYSTEMS DEVELOPMENT MANAGER Notes: (Same as:MORPhine Sulfate) Start Date: 06/08/17 Stop Date: 06/08/17 Status: Discontinued normal saline 0.9% IV 1,000 mL 1,000 mL, Rate: 100 ml/hr, Infuse over: 10 hr, Route: IV, Dosing Weight 124.045 kg, Total Volume: 1,000, Start date: 06/08/17 7:08:00 SYSTEMS DEVELOPMENT MANAGER, Duration: 30 day, Sto p date: 07/08/17 7:07:00 SYSTEMS DEVELOPMENT MANAGER, 2.59, m2 Start Date: 06/08/17 Stop Date: 06/08/17 Status: Discontinued normal saline 0.9% IV 1,000 mL 1,000 mL, Rate: 100 ml/hr, Infuse over: 10 hr, Route: IV, Dosing Weight 122.727 kg, Total Volume: 1,000, Priority: STAT, Start date: 06/08/17 0:14:00 SYSTEMS DEVELOPMENT MANAGER, Durat ion: 1 doses or times, Stop date: 06/08/17 10:13:00 SYSTEMS DEVELOPMENT MANAGER, 2.58, m2 Start Date: 06/08/17 Stop Date: 06/08/17 Status: Completed ondansetron 4 mg, 2 mL, Route: IVP, Drug form: INJ, Q6H, Dosing Weight 122.727, kg, PRN Naus ea & Vomiting, Start date: 06/08/17 0:13:00 SYSTEMS DEVELOPMENT MANAGER, Duration: 30 day, Stop date: 07/08/17 0:12:00 SYSTEMS DEVELOPMENT MANAGER Notes: (Same as: Irina) MEDICATION WASTE Product Size: 4 mgProduct Was adam: ___ mg Start Date: 06/08/17 Stop Date: 06/08/17 Status: Discontinued Pepcid 20 mg, 2 mL, Route: IV, Drug form: INJ, Q12H, Dosing Weight 122.727, kg, Start d ate: 06/08/17 9:00:00 SYSTEMS DEVELOPMENT MANAGER, Duration: 30 day, Stop date: 07/07/17 21:00:00 SYSTEMS DEVELOPMENT MANAGER, * Notes: (Same as: Pepcid)Can be dilute in 5-10cc NS IVP: Slow IV push over at le ast 2 minutes. Start Date: 06/08/17 Stop Date: 06/08/17 Status: Discontinued Protonix 40 mg, 1 tab, Route: PO, Drug form: ECTAB, BID, Dosing Weight 124.045, kg, Start date: 06/08/17 17:00:00 SYSTEMS DEVELOPMENT MANAGER, Duration: 30 day, Stop date: 07/08/17 9:00:00 SYSTEMS DEVELOPMENT MANAGER Notes: Tablet should not be chewed or crushed.(Same as: Protonix) Start Date: 06/08/17 Stop Date: 06/08/17 Status: Canceled trazodone PO, Bedtime, 0 Refill(s) Start Date: 06/08/17 Status: Ordered Results ELECTROLYTES Most recent to 1 2 oldest [Reference Range]: Sodium Lvl [135-145 138 mEq/L 134 mEq/L mEq/L] (06/08/17 3:32 AM) *LOW* (06/07/17 10:10 PM) Potassium Lvl 3.7 mEq/L 3.5 mEq/L [3.5-5.1 mEq/L] (06/08/17 3:32 AM) (06/07/17 10:10 PM) Chloride Lvl [95-109 103 mEq/L 98 mEq/L mEq/L] (06/08/17 3:32 AM) (06/07/17 10:10 PM) CO2 [24-32 mEq/L] 30 mEq/L 32 mEq/L (06/08/17 3:32 AM) (06/07/17 10:10 PM) AGAP [10.0-20.0 8.7 mEq/L 7.5 mEq/L mEq/L] *LOW* *LOW* (06/08/17 3:32 AM) (06/07/17 10:10 PM) CHEM PANEL Most recent to 1 2 oldest [Reference Range]: Creatinine Lvl 1.21 mg/dL 1.45 mg/dL [0.50-1.40 mg/dL] (06/08/17 3:32 AM) *HI* (06/07/17 10:10 PM) eGFR 70 mL/min/1.73m2 1 57 mL/min/1.73m2 2 *NA* *NA* (06/08/17 3:32 AM) (06/07/17 10:10 PM) BUN [7-22 mg/dL] 17 mg/dL 17 mg/dL (06/08/17 3:32 AM) (06/07/17 10:10 PM) B/C Ratio [6-25] 14 12 (06/08/17 3:32 AM) (06/07/17 10:10 PM) Glucose Lvl [70-99 93 mg/dL 87 mg/dL mg/dL] (06/08/17 3:32 AM) (06/07/17 10:10 PM) Total Protein 6.7 g/dL 7.2 g/dL [6.4-8.4 g/dL] (06/08/17 3:32 AM) (06/07/17 10:10 PM) Albumin Lvl [3.5-5.0 3.5 g/dL 3.7 g/dL g/dL] (06/08/17 3:32 AM) (06/07/17 10:10 PM) Globulin [2.7-4.2 3.2 g/dL 3.5 g/dL g/dL] (06/08/17 3:32 AM) (06/07/17 10:10 PM) A/G Ratio [0.7-1.6] 1.1 1.1 (06/08/17 3:32 AM) (06/07/17 10:10 PM) Calcium Lvl 8.2 mg/dL 8.3 mg/dL [8.5-10.5 mg/dL] *LOW* *LOW* (06/08/17 3:32 AM) (06/07/17 10:10 PM) Magnesium Lvl 2.2 mg/dL [1.8-2.4 mg/dL] (06/08/17 3:32 AM) ALT [0-65 unit/L] 42 unit/L 44 unit/L (06/08/17 3:32 AM) (06/07/17 10:10 PM) AST [0-37 unit/L] 20 unit/L 22 unit/L (06/08/17 3:32 AM) (06/07/17 10:10 PM) Alk Phos [39-136 79 unit/L 82 unit/L unit/L] (06/08/17 3:32 AM) (06/07/17 10:10 PM) Bili Total [0.2-1.3 0.8 mg/dL 0.5 mg/dL mg/dL] (06/08/17 3:32 AM) (06/07/17 10:10 PM) 1Result Comment: The eGFR is calculated [...] be mul tiplied by the estimated BMI. 2Result Comment: The eGFR is calculated using the [...] be mul tiplied by the estimated BMI. HEMATOLOGY Most recent to 1 2 oldest [Reference Range]: WBC [3.7-10.4 K/CMM] 9.7 K/CMM 11.0 K/CMM (06/08/17 3:32 AM) *HI* (06/07/17 10:10 PM) RBC [4.70-6.10 4.58 M/CMM 4.69 M/CMM M/CMM] *LOW* *LOW* (06/08/17 3:32 AM) (06/07/17 10:10 PM) Hgb [14.0-18.0 g/dL] 14.5 g/dL 14.7 g/dL (06/08/17 3:32 AM) (06/07/17 10:10 PM) Hct [42.0-54.0 %] 41.8 % 42.7 % *LOW* (06/07/17 10:10 PM) (06/08/17 3:32 AM) MCV [80.0-94.0 fL] 91.3 fL 91.0 fL (06/08/17 3:32 AM) (06/07/17 10:10 PM) MCH [27.0-31.0 pg] 31.7 pg 31.4 pg *HI* *HI* (06/08/17 3:32 AM) (06/07/17 10:10 PM) MCHC [32.0-36.0 34.7 g/dL 34.5 g/dL g/dL] (06/08/17 3:32 AM) (06/07/17 10:10 PM) RDW [11.5-14.5 %] 13.4 % 13.6 % (06/08/17 3:32 AM) (06/07/17 10:10 PM) MPV [7.4-10.4 fL] 7.6 fL 7.5 fL (06/08/17 3:32 AM) (06/07/17 10:10 PM) Platelet [133-450 279 K/CMM 283 K/CMM K/CMM] (06/08/17 3:32 AM) (06/07/17 10:10 PM) Segs [45.0-75.0 %] 60.1 % 53.6 % (06/08/17 3:32 AM) (06/07/17 10:10 PM) Lymphocytes 26.3 % 32.5 % [20.0-40.0 %] (06/08/17 3:32 AM) (06/07/17 10:10 PM) Monocytes [2.0-12.0 9.7 % 9.3 % %] (06/08/17 3:32 AM) (06/07/17 10:10 PM) Eosinophils [0.0-4.0 3.6 % 4.0 % %] (06/08/17 3:32 AM) (06/07/17 10:10 PM) Basophils [0.0-1.0 0.3 % 0.6 % %] (06/08/17 3:32 AM) (06/07/17 10:10 PM) Segs-Bands # 5.8 K/CMM 5.9 K/CMM [1.5-8.1 K/CMM] (06/08/17 3:32 AM) (06/07/17 10:10 PM) Lymphocytes # 2.5 K/CMM 3.6 K/CMM [1.0-5.5 K/CMM] (06/08/17 3:32 AM) (06/07/17 10:10 PM) Monocytes # [0.0-0.8 0.9 K/CMM 1.0 K/CMM K/CMM] *HI* *HI* (06/08/17 3:32 AM) (06/07/17 10:10 PM) Eosinophils # 0.3 K/CMM 0.4 K/CMM [0.0-0.5 K/CMM] (06/08/17 3:32 AM) (06/07/17 10:10 PM) Basophils # [0.0-0.2 0.1 K/CMM K/CMM] (06/07/17 10:10 PM) PT [12.0-14.7 14.3 seconds seconds] (06/08/17 3:32 AM) INR [0.85-1.17] 1.11 (06/08/17 3:32 AM) PTT [22.9-35.8 29.1 seconds seconds] (06/08/17 3:32 AM) Immunizations No data available for this section Procedures Procedure Date Related Diagnosis Body Site Status Laminectomy1 Completed Tonsillectomy Completed 1L3-5 Social History Social History Type Response Substance Abuse Use: None. Sexual Sexually active: Yes. Exercise Exercise type: Walking. Employment/School Status: Employed. Alcohol Never Smoking Status Never smoker; Previous treatment: None; Ready to change: No; Concerns about tobacco use in household: No; Exposure to Tobacco Smoke None; Cigarette Smoking Last 365 Days No; Reg Smoking Cessation Counseling No entered on: 06/07/17 Assessment and Plan Extracted from: Title: General Admission H&P * Author: Luke Carson Date: 06/08/17 Arik VALDES Impression and Plan 46 yo male with history of anxiety presented to ER c/o vomiting. 1. Food impaction in esophagous. Chest pain, feeling llike chocking and vomiting after eating. Dr Hernandez, GI contacted by ER. Follow GI recommendations. 2. Hypovolemia. IV hydration. 3. LILLY, like pre renal. 4. DVT prophylaxis. Heparin SQ.
--- OUTSIDE RECORDS SUMMARY | 2018-06-17 06:46 | XMS REPORT | Summary of Care ---
Author Author [facility] Organization [facility] Address Unknown Phone Unavailable Encounter JAMESON Harden(BERNARD) [id number] Date(s): 07/19/16 - 07/19/16 [facility] [address] [place] [address]- U S [phone] Discharge Diagnosis: Folliculitis Discharge Disposition: Home or Self Care Attending Physician: Dionne Pino MD Vital Signs 1 2 3 Most recent to oldest [Reference Range]: 193.04 cm (07/19/16 8:06 AM) Height 97.5 DegF (07/19/16 9:31 AM) 97.7 DegF (07/19/16 9:07 AM) 98.9 DegF (07/19/16 8:06 AM) Temperature Oral [96.4-99.1 DegF] 121/78 mmHg (07/19/16 9:31 AM) 123/70 mmHg (07/19/16 9:07 AM) 124/79 mmHg (07/19/16 8:06 AM) Blood Pressure [90-140/60-90 mmHg] 18 BRMIN (07/19/16 9:31 AM) 18 BRMIN (07/19/16 9:07 AM) 18 BRMIN (07/19/16 8:06 AM) Respiratory Rate [14-20 BRMIN] 44 bpm *LOW* (07/19/16 9:31 AM) 51 bpm *LOW* (07/19/16 9:07 AM) 52 bpm *LOW* (07/19/16 8:06 AM) Peripheral Pulse Rate [60-100 bpm] 115 kg (07/19/16 8:06 AM) Weight 30.86 m2 (07/19/16 8:06 AM) Body Mass Index Problem List Condition Effective Dates Status Health Status Informant Abdominal Active pain(Confirmed) Anxiety(Confirmed) Resolved Chest Active pain(Confirmed) Chronic back Resolved pain(Confirmed) Hyperlipidemia(Confi Active rmed) Hypertension(Confirm Active ed) PUD - Peptic ulcer Active disease(Confirmed) Allergies, Adverse Reactions, Alerts Substance Reaction Severity Status amoxicillin Active Medications clindamycin 300 mg oral capsule 300 mg=1 cap, PO, Q6H, X 7 day, # 28 cap, 0 Refill(s) Start Date: 07/19/16 Stop Date: 07/26/16 Status: Ordered Saline Flush 0.9% 10 mL, Route: IVP, Drug Form: INJ, Dosing Weight 115, kg, PRN, PRN Line Flush, S tart date: 07/19/16 8:24:00 CDT, Duration: 30 day, Stop date: 08/18/16 8:23:00 C DT Notes: (Same as: BD Posiflush) Start Date: 07/19/16 Stop Date: 07/19/16 Status: Discontinued Results ELECTROLYTES Most recent to 1 oldest [Reference Range]: Sodium Lvl [135-145 143 mEq/L mEq/L] (07/19/16 9:00 AM) Potassium Lvl 4.4 mEq/L [3.5-5.1 mEq/L] (07/19/16 9:00 AM) Chloride Lvl [95-109 106 mEq/L mEq/L] (07/19/16 9:00 AM) CO2 [24-32 mEq/L] 30 mEq/L (07/19/16 9:00 AM) AGAP [10.0-20.0 11.4 mEq/L mEq/L] (07/19/16 9:00 AM) CHEM PANEL Most recent to 1 oldest [Reference Range]: Creatinine Lvl 1.25 mg/dL [0.50-1.40 mg/dL] (07/19/16 9:00 AM) eGFR 68 mL/min/1.73m2 1 *NA* (07/19/16 9:00 AM) BUN [7-22 mg/dL] 15 mg/dL (07/19/16 9:00 AM) B/C Ratio [6-25] 12 (07/19/16 9:00 AM) Glucose Lvl [70-99 86 mg/dL mg/dL] (07/19/16 9:00 AM) Total Protein 6.9 g/dL [6.4-8.4 g/dL] (07/19/16 9:00 AM) Albumin Lvl [3.5-5.0 3.3 g/dL g/dL] *LOW* (07/19/16 9:00 AM) Globulin [2.7-4.2 3.6 g/dL g/dL] (07/19/16 9:00 AM) A/G Ratio [0.7-1.6] 0.9 (07/19/16 9:00 AM) Calcium Lvl 8.3 mg/dL [8.5-10.5 mg/dL] *LOW* (07/19/16 9:00 AM) ALT [0-65 unit/L] 39 unit/L (07/19/16 9:00 AM) AST [0-37 unit/L] 12 unit/L (07/19/16 9:00 AM) Alk Phos [39-136 86 unit/L unit/L] (07/19/16 9:00 AM) Bili Total [0.2-1.3 0.3 mg/dL mg/dL] (07/19/16 9:00 AM) 1Result Comment: The eGFR is calculated [...] be mul tiplied by the estimated BMI. DRUG SCREEN Most recent to 1 oldest [Reference Range]: U Amph Scr Negative [Negative] *NA* (07/19/16 9:21 AM) U Sweta Scr Negative [Negative] *NA* (07/19/16 9:21 AM) U Benzodia Scr Negative [Negative] *NA* (07/19/16 9:21 AM) U Cocaine Scr Negative [Negative] *NA* (07/19/16 9:21 AM) U Opiate Scr Negative [Negative] *NA* (07/19/16 9:21 AM) U Phencyc Scr Negative [Negative] *NA* (07/19/16 9:21 AM) U Cannab Scr Negative [Negative] *NA* (07/19/16 9:21 AM) UDS Note See Note *NA* (07/19/16 9:21 AM) HEMATOLOGY Most recent to 1 oldest [Reference Range]: WBC [3.7-10.4 K/CMM] 8.3 K/CMM (07/19/16 9:00 AM) RBC [4.70-6.10 4.65 M/CMM M/CMM] *LOW* (07/19/16 9:00 AM) Hgb [14.0-18.0 g/dL] 14.3 g/dL (07/19/16 9:00 AM) Hct [42.0-54.0 %] 42.3 % (07/19/16 9:00 AM) MCV [80.0-94.0 fL] 91.0 fL (07/19/16 9:00 AM) MCH [27.0-31.0 pg] 30.8 pg (07/19/16 9:00 AM) MCHC [32.0-36.0 33.9 g/dL g/dL] (07/19/16 9:00 AM) RDW [11.5-14.5 %] 14.2 % (07/19/16 9:00 AM) Platelet [133-450 235 K/CMM K/CMM] (07/19/16 9:00 AM) MPV [7.4-10.4 fL] 8.0 fL (07/19/16 9:00 AM) Segs [45.0-75.0 %] 56.4 % (07/19/16 9:00 AM) Lymphocytes 30.3 % [20.0-40.0 %] (07/19/16 9:00 AM) Monocytes [2.0-12.0 9.4 % %] (07/19/16 9:00 AM) Eosinophils [0.0-4.0 3.4 % %] (07/19/16 9:00 AM) Basophils [0.0-1.0 0.5 % %] (07/19/16 9:00 AM) Segs-Bands # 4.7 K/CMM [1.5-8.1 K/CMM] (07/19/16 9:00 AM) Lymphocytes # 2.5 K/CMM [1.0-5.5 K/CMM] (07/19/16 9:00 AM) Monocytes # [0.0-0.8 0.8 K/CMM K/CMM] (07/19/16 9:00 AM) Eosinophils # 0.3 K/CMM [0.0-0.5 K/CMM] (07/19/16 9:00 AM) Immunizations No data available for this section Procedures Procedure Date Related Diagnosis Body Site Laminectomy1 Tonsillectomy 1L3-5 Social History Social History Type Response Substance Abuse Use: None. Alcohol Never Smoking Status Never smoker; Previous treatment: None; Ready to change: No; Concerns about tobacco use in household: No; Exposure to Tobacco Smoke None; Cigarette Smoking Last 365 Days No; Reg Smoking Cessation Counseling No Assessment and Plan No data available for this section
--- OUTSIDE RECORDS SUMMARY | 2018-06-17 06:46 | XMS REPORT ---
Author Author [facility] Address Unknown Phone Unavailable Care Team Providers Care Rn Corrections Name Role Phone EL JOSEPH Unavailable Unavailable Problems This patient has no known problems. Allergies, Adverse Reactions, Alerts This patient has no known allergies or adverse reactions. Medications This patient has no known medications. Results Test Description Test Time Test Comments Text Results Atomic Results Result Comments CHEST 2 VIEWS 2018-06-14 12:16:00 [place] [address] Patient Name: ALIZE SANTIAGO MR #: [id number] : 1970 Age/Sex: 47/M Req #: [id number] Adm Physician: Ordered by: EL JOSEPH DPM Report #: [id number] Location: OR Room/Bed: Procedure: [id number] DX/CHEST 2 VIEWS Exam Date: 06/14/18 Exam Time: 1100 REPORT STATUS: Signed EXAM: CHEST 2 VIEWS, PA and lateral DATE: 06/14/2018 Time sta mp on exam: 11:47 AM INDICATION: Preoperative COMPARISON: None FINDINGS: LINES/TUBES: None LUNGS: No consolidations or edema. PLEURA: No effusions or pneumothorax. HEART AND MEDIASTINUM: Normal size and contour. BONES AND SOFT TISSUES: Plate overlies the lower cervical spine. Old mid shaft fracture of the right clavicle. IMPRESSION: No acute thoracic abnormality. Signed by: Dr. Markel Krishnan DO on 06/14/2018 12:17 PM Dictated By: MARKEL KRISHNAN DO Transcribed By: ADAM on 06/14/181216 COPY TO: EL JOSEPH DPM
--- NOTE | 2018-06-17 07:15 | NUR ---
SPIRITUAL CARE - Pre-Surgery Assessment: Pt in bed. Pt reported supportive attention from family and friends. Intervention: I provided pastoral presence, hospitality, and sympathetic listening. I acquainted pt with availability of consumer insights intern while hospitalized. Outcome: Pt expressed appreciation for visit. No need for follow up indicated at this time. [facility] Spiritual Care Department O: [phone] Pager: [phone])
[2018-06-17 12:05] VITALS: BP 133/75
--- NOTE | 2018-06-17 16:32 | Operative Report ---
DATE OF PROCEDURE: June 17, 2018 PREOPERATIVE DIAGNOSES 1. Plantar fasciitis. 2. Plantar fascial contracture, left foot. 3. 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 4. There is also an onychomycotic infected nail present in the left hallux. POSTOPERATIVE DIAGNOSES 1. Plantar fasciitis. 2. Plantar fascial contracture, left foot. 3. 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 4. There is also an onychomycotic infected nail present in the left hallux. TITLE OF OPERATIONS 1. Endoscopic plantar fasciotomy of the left foot. 2. Resection of heel spur, left foot. 3. Total nail avulsion, left hallux. PROCEDURE IN DETAIL: The patient was taken to the operating room in a mildly sedated state and placed upon the operating table in the supine position. Following induction of general anesthetic, the left lower extremity was elevated 60 degrees to exsanguinate before inflating the pneumatic thigh tourniquet to 350 mmHg for good hemostasis. The left lower extremity was placed upon the operating table prior to performing the following procedure. PROCEDURE #1: Endoscopic plantar fasciotomy, left foot. A medial stab incision was placed at the medial aspect of the insertion of the plantar fascia into the medial plantar calcaneal tubercle. This incision was deepened via sharp and blunt dissection down to the level of the fascia itself. A hook knife was used from medial to lateral to elongate the medial and central band of the plantar fascia in the appropriate fashion. This area was then irrigated with copious amounts of sterile saline solution. Attention was directed to the heel spur. A separate incision was made overlying the spur in J-shape, which not only exposed the spur itself, but also an underlying heel neuroma. That neuroma was identified and carefully dissected free and removed. The underlying tissues were further evaluated for any further significant pathology. None being noted, a very large plantar calcaneal spur was identified. Under fluoroscopy utilizing a combination of osteotome and mallet, Elsie and power rasp was remodeled. That area was then irrigated with copious amounts of sterile saline solution. Deep closure and fascial repair was done with 3-0 Vicryl, subcutaneous closure with 4-0 Vicryl, and skin closure with 4-0 nylon, both medial and lateral wounds. The areas were then blocked with 0.5 Marcaine and Decadron LA. Human tissue allograft was used to facilitate healing of that plantar fascia. Release of the pneumatic thigh tourniquet showed a normal hyperemic flush to all digits of the left foot. A TLS drain was used to further facilitate healing. The patient left the operating room with vital signs stable and in apparent satisfactory condition, having tolerated both anesthetic and procedure very well. Job#: [id number]
== END | disposition home or self-care (01) ==
LOC: OR 06:37
PROVIDERS: ATTEND Podiatrist Foot Surgery
DX: M72.2 Plantar fascial fibromatosis (principal); M77.32 Calcaneal spur, left foot; G57.61 Lesion of plantar nerve, right lower limb; B35.1 Tinea unguium; S91.202A Unspecified open wound of left great toe with damage to nail, initial encounter; Z01.810 Encounter for preprocedural cardiovascular examination; Z01.812 Encounter for preprocedural laboratory examination; Z01.811 Encounter for preprocedural respiratory examination
CPT/HCPCS: 11730; 28104; 29893; 36415; 64782; 71046; 76000; 80048; 85025; 88300; 93005; J0131; J0690; J1100; J1885; J2001 ×2; J2250; J2405; J2704; J2710; Q4100

== ENCOUNTER 2019-07-27 06:44 | Observation (INO) | payer BC ==
[2019-07-26 10:34] LABS: BASOPHILS # (AUTO) 0.1 (0.0-0.1); BASOPHILS % 0.5 % (0.0-1.0); EOSINOPHILS # (AUTO) 0.4 (0.0-0.4); EOSINOPHILS % 4.3 % (0.0-6.0); HEMATOCRIT 46.6 % (38.2-49.6); HEMOGLOBIN 15.3 g/dL (14.0-18.0); LYMPHOCYTES # (AUTO) 2.5 (1.0-3.2); LYMPHOCYTES % 27.3 % (18.0-39.1); MEAN CORPUSCULAR HEMOGLOBIN 30.8 pg (28-32); MEAN CORPUSCULAR HGB CONC 32.8 g/dL (31-35); MEAN CORPUSCULAR VOLUME 93.8 fL (81-99); MONOCYTES # (AUTO) 0.9 (0.2-0.8); MONOCYTES % 9.9 % (4.4-11.3); NEUTROPHILS # (AUTO) 5.3 (2.1-6.9); NEUTROPHILS % 57.7 % (38.7-80.0); PLATELET COUNT 316 x10e3/uL (140-360); RED BLOOD COUNT 4.97 x10e6/uL (4.3-5.7); RED CELL DISTRIBUTION WIDTH 13.5 % (11.7-14.4)
--- NOTE | 2019-07-26 10:49 | Diagnostic Imaging Report ---
EXAMINATION: CHEST 2 VIEWS INDICATION: Pre-operative COMPARISON: None FINDINGS: LINES/TUBES:None LUNGS:The lungs are well-inflated. No focal consolidation or pulmonary edema. PLEURA:No pleural effusion or pneumothorax. MEDIASTINUM:The cardiomediastinal silhouette appears normal in size and shape. BONES/SOFT TISSUES:No acute osseous injury. Cervical spine fusion hardware. ABDOMEN:No free air under the diaphragm. IMPRESSION: No focal pneumonia or pulmonary edema. Signed by: Alejo Hudson MD on 07/26/2019 10:45 AM
[2019-07-26 10:52] LABS: ANION GAP 10.7 mmol/L (8-16); CALCIUM 9.3 mg/dL (8.4-10.2); CREATININE, SERUM 1.28 mg/dL (0.72-1.25); POTASSIUM 4.7 mmol/L (3.5-5.1)
[2019-07-26 11:13] LABS: INR 1.03; PROTHROMBIN TIME 14.1 seconds (11.9-14.5)
[2019-07-26 11:14] LABS: PARTIAL THROMBOPLASTIN TIME 27.8 seconds (23.8-35.5)
[~2019-07-27] VITALS: Ht 193 cm; Wt 131.5 kg
[~2019-07-27 06:44] MED LIST changes: -ACETAMINOPHEN 1000 MG/100 ML IV ONE; -BUPIVACAINE 0.25% 30ML SDV INJ ONE; -CEFAZOLIN SOD 2 GM/D5W 50ML 50 ML IV ONE; -DEXAMETHASONE SOD PHOS INJ 4 MG/ML VIAL ONE; +FAMOTIDINE20 MG PO; -FENTANYL CITRATE/PF 100MCG/2 ML INJ ONE; +FLOMAX0.4 MG PO; -FLUOXETINE HCL20 M1; +FLUOXETINE HCL20 M1 PO; -KETOROLAC TROMETHAMINE 30 MG/ML VIAL ONE; -LIDOCAINE HCL 2% JELLY 5 ML TUBE ONE; -LIDOCAINE HCL 2% LOCAL INJ 5 ML SDV VIAL INJ ONE; -MIDAZOLAM HCL 2 MG/2 ML VIAL ONE; -NEOSTIGMINE 1 MG/ML 10ML VIAL ONE; -ONDANSETRON HCL INJ 2MG/ML 2ML 2 MG/ML VIAL ONE; -PROPOFOL IV EMULSION 10 MG/ML 20 ML VIAL ONE; -SEVOFLURANE INHAL SOLN 250 ML PEN BTL ONE; +SUCRALFATE1 GM PO; +ULTRAM50 MG PO
[2019-07-27] MEDS ORDERED: VANCOMYCIN 300 ML IV ONE (08:15)
[2019-07-27] MEDS ORDERED: SUGAMMADEX SODIUM 200 MG/2 ML VIAL IV ONE (10:39)
[2019-07-27] MEDS ORDERED: SUCRALFATE 1 GM TAB PO PRN (10:45)
[2019-07-27] MEDS ORDERED: MAGNESIUM/ALUMINUM/SIMETHICONE 30 ML UDC PO PRN (10:45)
[2019-07-27] MEDS ORDERED: CEPACOL SORE THROAT LOZENGES PO PRN (10:45)
[2019-07-27] MEDS ORDERED: ACETAMINOPHEN 325 MG TAB PO PRN (10:45)
[2019-07-27] MEDS ORDERED: MORPHINE SULFATE 5 MG/ML VIAL IM PRN (10:45)
[2019-07-27] MEDS ORDERED: OXYCODONE/ACETAMINOPHEN 5-325 1 EACH TABLET PO PRN (10:45)
[2019-07-27] MEDS ORDERED: TRAMADOL HCL 50 MG TAB PO PRN (10:45)
[2019-07-27] MEDS ORDERED: CARISOPRODOL 350 MG TAB PO PRN (10:45)
[2019-07-27] MEDS ORDERED: PROMETHAZINE HCL (IM) 25 MG/ML VIAL IM PRN (10:45)
[2019-07-27] MEDS ORDERED: FENTANYL CITRATE/PF 100MCG/2 ML INJ ONE ×2 (11:15→12:50)
--- NOTE | 2019-07-27 12:30 | NUR ---
RECEIVED PT FROM PACU VIA STRETCHER. PT ABLE TO TRANFERR SELF TO BED. DRSG CD&I TO LOWER BACK. PAIN 07/17. PT VOIDS 200 CLEAR YELLOW URINE
[2019-07-27] MEDS ORDERED: MIDAZOLAM HCL 2 MG/2 ML VIAL ONE (12:50)
[2019-07-27] MEDS ORDERED: LACTATED RINGER'S 1,000 ML IV SCH (13:15)
[2019-07-27 13:28] VITALS: BP 129/82
[2019-07-27] MEDS ORDERED: LIDOCAINE HCL 2% LOCAL INJ 5 ML SDV VIAL INJ ONE (14:02)
[2019-07-27] MEDS ORDERED: DEXAMETHASONE SOD PHOS INJ 4 MG/ML VIAL ONE (14:02)
[2019-07-27] MEDS ORDERED: SEVOFLURANE INHAL SOLN 250 ML PEN BTL ONE (14:02)
[2019-07-27] MEDS ORDERED: GLYCOPYRROLATE INJ 0.2 MG/ML VIAL ONE (14:02)
[2019-07-27] MEDS ORDERED: ROCURONIUM BROMIDE 10 MG/ML 5ML VIAL ONE (14:02)
[2019-07-27] MEDS ORDERED: PROPOFOL IV EMULSION 10 MG/ML 20 ML VIAL ONE (14:02)
[2019-07-27] MEDS ORDERED: NEOSTIGMINE 1 MG/ML 10ML VIAL ONE (14:02)
--- NOTE | 2019-07-27 14:55 | Operative Report ---
DATE OF PROCEDURE: 07/27/2019 SURGEON: Gregg Sexton MD PREOPERATIVE DIAGNOSIS: Recurrent left L2-3 disk herniation with radiculopathy. POSTOPERATIVE DIAGNOSIS: Recurrent left L2-3 disk herniation with radiculopathy. PROCEDURES: Redo left L2-3 laminotomy, medial facetectomy, and microsurgical diskectomy, 14819. ANESTHESIA: General. INDICATIONS: The patient is a 48-year-old man, who presents with a recurrent left L2-3 disk herniation with radiculopathy and was taken to surgery for redo microsurgical diskectomy. PROCEDURE IN DETAIL: After induction of general anesthesia, the patient was placed on the operating table in prone position over Ezio frame. Lumbar region was prepped and draped in sterile fashion. A preoperative x-ray was obtained. A midline incision was created overlying his previous incision scar. Lumbar fascia was opened left of midline and dissection was carried out to expose the left side of L2 and L3 residual lamina and the medial aspect of the L2-L3 facet joint. The region of the previous laminotomy was carefully defined with a curette and a second x-ray confirmed correct localization. The operating microscope was brought in. A high-speed drill equipped with elian shannan was used to extend laminotomy along L2 slightly superiorly and laterally along the medial aspect of the L2-L3 facet joint. The lateral margin of the dura was defined and the residual ligamentum flavum was resected to expose the L3 traversing nerve root. The herniated disk material came into view just under nerve root. This was mobilized with a micro ball probe and grasped with a micropituitary rongeur and removed. Excellent decompression was achieved. The wound was irrigated with bacitracin solution. Meticulous hemostasis was secured. Retractor was removed. The platysma was closed with 3-0 Vicryl suture. The wound was closed in multiple layers with 0 and 2-0 Vicryl sutures and stephanie. A dressing was applied. The patient was awakened, extubated, and taken to postanesthesia care unit in stable condition. No intraoperative complications were encountered. ESTIMATED BLOOD LOSS: 10 mL. Gregg Sexton MD PP/MODL /[id number]
[2019-07-27] MEDS ORDERED: FAMOTIDINE 20 MG TAB PO SCH ×2 (17:00→21:00)
[2019-07-27] MEDS ORDERED: TRAZODONE HCL 50 MG TAB PO SCH ×2 (17:00→21:00)
[2019-07-27] MEDS ORDERED: CLONAZEPAM 1 MG TAB PO SCH ×2 (17:00→21:00)
[2019-07-27 17:13] VITALS: BP 133/81
--- NOTE | 2019-07-27 18:30 | NUR ---
PT TOLERATING BOTH MEALS AND DRANK A PITCHER OF WATER.
[2019-07-27 20:00] VITALS: BP 122/91
[2019-07-27] MEDS: HYDROMORPHONE 2MG/ML 2 MG/ML ML IV PRN (20:00)
[2019-07-27] MEDS: VANCOMYCIN 1GM/NS 250 ML 250 ML IV SCH (20:00)
[2019-07-27] MEDS: ONDANSETRON HCL INJ 2MG/ML 2ML 2 MG/ML VIAL IV PRN (20:00)
--- NOTE | 2019-07-27 20:00 | NUR ---
patient medicated with dilaudid 2mg and zofran 4 mg ivp for c/o lower back pain 11/16 at this time per patients request.
[2019-07-27 20:50] VITALS: BP 122/91
[2019-07-27] MEDS ORDERED: ZOLPIDEM TARTRATE 5 MG TAB PO PRN (21:00)
[2019-07-28] VITALS: BP 115/80
[2019-07-28] MEDS: ONDANSETRON HCL INJ 2MG/ML 2ML 2 MG/ML VIAL IV PRN (01:05)
[2019-07-28] MEDS: HYDROMORPHONE 2MG/ML 2 MG/ML ML IV PRN (01:05)
--- NOTE | 2019-07-28 01:25 | NUR ---
report received on this patient from Marie Hunter RN. Care of this patient taken over at this time. patient appears to be resting quietly. no c/o pain noted. ivf continue to infuse without difficulty.
[2019-07-28 04:00] VITALS: BP 121/84
[2019-07-28] MEDS ORDERED: NORCO 7.5-3251 EACH PO (07:17)
[2019-07-28 08:01] VITALS: BP 116/71
[2019-07-28] MEDS: VANCOMYCIN 1GM/NS 250 ML 250 ML IV SCH (08:35)
[2019-07-28] MEDS ORDERED: TAMSULOSIN HCL 0.4 MG CAP PO SCH (09:00)
[2019-07-28] MEDS ORDERED: FLUOXETINE HCL 20 MG CAP PO SCH (09:00)
[2019-07-28 09:09] VITALS: BP 116/71
== END 2019-07-28 09:15 | disposition home or self-care (01) ==
LOC: OR 06:44 → PACU V 11:22 → MED/SURG 12:31
PROVIDERS: ADMIT Neurological Surgery; ATTEND Neurological Surgery
DX: M51.16 Intervertebral disc disorders with radiculopathy, lumbar region (principal); Z88.1 Allergy status to other antibiotic agents; K27.9 Peptic ulcer, site unspecified, unspecified as acute or chronic, without hemorrhage or perforation; Z01.810 Encounter for preprocedural cardiovascular examination; Z01.812 Encounter for preprocedural laboratory examination; Z01.811 Encounter for preprocedural respiratory examination
CPT/HCPCS: 36415; 71046; 72020; 80048; 85025; 85610; 85730; 86850; 86900; 88304; 93005; G0378; J1100; J2001; J2250; J2405; J2710; J3010; J3370; J7121

== ENCOUNTER → 2020-07-09 | Day surgery (SDC) | payer BC ==
[~2020-07-09] MED LIST changes: +CLINDAMYCIN 600MG / 50ML 50 ML IV ONE; +CYCLOBENZAPRINE10 MG PO; +DEXAMETHASONE SOD PHOS INJ 4 MG/ML VIAL ONE; +FENTANYL CITRATE/PF 100MCG/2 ML INJ ONE; +HYDROCODON-ACE1 EA12; +IBUPROFEN800 MG PO; +KETOROLAC TROMETHAMINE 30 MG/ML VIAL ONE; +LIDOCAINE HCL 2% JELLY 5 ML TUBE ONE; +LIDOCAINE HCL 2% LOCAL INJ 5 ML SDV VIAL INJ ONE; +MIDAZOLAM HCL 2 MG/2 ML VIAL ONE; +NEURONTIN300 MG PO; +NORCO 7.5-3251 EACH PO; +ONDANSETRON HCL INJ 2MG/ML 2ML 2 MG/ML VIAL ONE; +SEVOFLURANE INHAL SOLN 250 ML PEN BTL ONE
[2020-07-09 09:30] VITALS: BP 178/90
== END | disposition home or self-care (01) ==
LOC: OR 05:34
PROVIDERS: ATTEND Specialist
DX: G56.03 Carpal tunnel syndrome, bilateral upper limbs (principal); G89.29 Other chronic pain; F32.9 Major depressive disorder, single episode, unspecified; F41.9 Anxiety disorder, unspecified; Z88.0 Allergy status to penicillin; Z01.810 Encounter for preprocedural cardiovascular examination; Z01.812 Encounter for preprocedural laboratory examination; Z20.822 Contact with and (suspected) exposure to COVID-19; Z68.36 Body mass index [BMI] 36.0-36.9, adult
CPT/HCPCS: 29848; 93005; J1100; J1885; J2001 ×2; J2250; J2405; J3010; U0002

== ENCOUNTER → 2022-03-26 | Day surgery (SDC) | payer OTHER ==
[~2022-03-26] MED LIST changes: +BENADRYL25 M1 PO; -CLINDAMYCIN 600MG / 50ML 50 ML IV ONE; +DEXAMETHASONE SOD PHOS 10 MG/1 ML VIAL ONE; -DEXAMETHASONE SOD PHOS INJ 4 MG/ML VIAL ONE; -FENTANYL CITRATE/PF 100MCG/2 ML INJ ONE; +IOPAMIDOL 200 MG/ML 20 ML VIAL IT ONE; +KETAMINE HCL INJ 50 MG/ML 10 ML VIAL ONE; -KETOROLAC TROMETHAMINE 30 MG/ML VIAL ONE; +LIDOCAINE HCL 1% 30ML-PF VIAL ONE; -LIDOCAINE HCL 2% JELLY 5 ML TUBE ONE; -MIDAZOLAM HCL 2 MG/2 ML VIAL ONE; -ONDANSETRON HCL INJ 2MG/ML 2ML 2 MG/ML VIAL ONE; +POVIDONE IODINE 0.05% 0.05 % ML PO ONE; +PROPOFOL IV EMULSION 10 MG/ML 20 ML VIAL ONE; -SEVOFLURANE INHAL SOLN 250 ML PEN BTL ONE
[2022-03-26 07:00] VITALS: BP 158/86
== END | disposition home or self-care (01) ==
LOC: OR 07:03
PROVIDERS: ATTEND Physical Medicine & Rehabilitation Pain Medicine
DX: M54.16 Radiculopathy, lumbar region (principal); M54.14 Radiculopathy, thoracic region; M54.12 Radiculopathy, cervical region; G47.30 Sleep apnea, unspecified; I10 Essential (primary) hypertension; K21.9 Gastro-esophageal reflux disease without esophagitis; N40.0 Benign prostatic hyperplasia without lower urinary tract symptoms; Z88.0 Allergy status to penicillin; Z01.810 Encounter for preprocedural cardiovascular examination; Z79.899 Other long term (current) drug therapy
CPT/HCPCS: 64483; 93005; J1100; J2001 ×2; J2704; Q9967; 77003